=== PATIENT | female | born 1940 | race Caucasian/White ===

== ENCOUNTER 2021-07-13 15:11 | Emergency (ER) | payer MEDICARE, SELFPAY ==
[2021-07-13] VITALS (7 sets, daily range): BP systolic 167–199; BP diastolic 50–66; PULSE 51–66; RESP 12–18; TEMP 36.3; O2SAT 98–100
--- NOTE | ~2021-07-13 | CT_ITS ---
EXAMINATION: CT brain wo con INDICATION: Headache COMPARISON: MRI, 02/16/2018 TECHNIQUE: Standard unenhanced head CT. The dose-length product (DLP) was 605.33 mGy-cm. The mA was a djusted according to patient size. Iterative reconstruction technique was employed. FINDINGS: There is no acute intraparenchymal hemorrhage. There are widespread hyperdense foci through out the brain parenchyma. Distribution is similar to that seen on the comparison MRI. No evidence of acute infarction. There is mild periventricular and subcortical hypodensity probably related to small vessel ischemic disease. There is mild prominence of the sulci and ventricles related to cerebral at rophy. Intracranial calcified cerebral atherosclerosis is noted. There are no extra-axial collections . There is no mass effect or midline shift. The orbits and soft tissues are unremarkable. The visuali zed sinuses and mastoid air cells are well aerated. IMPRESSION: 1. Widespread hyperdense parenchymal foci, likely related to amyloidosis as described on the comparis on MRI. No definite acute findings identified. 2. Age related findings. Reviewed, dictated and finalized at location A. IMPRESSION: 1. Widespread hyperdense parenchymal foci, likely related to amyloidosis as wandy cribed on the comparison MRI. No definite acute findings identified. 2. Age related findings.
--- NOTE | ~2021-07-13 | CT_ITS ---
EXAMINATION: CTA chest PE protocol DATE: 07/13/2021 20:15 INDICATION: Heart palpitations TECHNIQUE: Computed tomography angiography (CTA) of the chest was performed with 100 mL Omnipaque-350 intravenous contrast timed to evaluate the pulmonary arteries. Coronal maximum intensity projection 3D-reconstructions were created by the technologist. The dose-length product (DLP) was 553.05 mGy-cm. Automated exposure control and iterative reconstruction technique were employed. COMPARISON: None. FINDINGS: The pulmonary arteries are well-opacified. No pulmonary embolism is identified. There is mi ld dependent atelectasis. No focal airspace opacity is identified. There is no pleural effusion or pn eumothorax. No pathologically enlarged thoracic lymph nodes are identified. The heart size is normal. There are bridging osteophytes at multiple levels in the spine, consistent with diffuse idiopathic s keletal hyperostosis (DISH). IMPRESSION: 1. No pulmonary embolism or acute cardiopulmonary abnormality. Reviewed, dictated and finalized at location A.
--- NOTE | 2021-07-13 16:15 | ECG_ITS ---
Measurements Intervals [place] Rate: 64 P: VT: 0 QRS: -41 QRSD: 108 T: 65 QT: 374 QTc: 388 Interpretive Statements SINUS RHYTHM LEFT AXIS DEVIATION BORDERLINE AV CONDUCTION DELAY INCOMPLETE LEFT BUNDLE BRANCH BLOCK LOW QRS VOLTAGE IN PRECORDIAL LEADS ANTEROSEPTAL INFARCT, AGE INDETERMINATE BASELINE ARTIFACT- I, II, III, AVR, AVL ABNORMAL ECG Electronically Signed On 07-13-2021 16:28:32 CDT by Jude Juarez D.O.
[2021-07-13 16:48] LABS: Basophils Percent Auto 0.2 % (0.2-1.2); Eosinophils Absolute Auto 0.2 K/mm3 (0-0.3); Eosinophils Percent Auto 3.8 % (0-4.4); Hematocrit 33.3 % (37.0-47.0); Hemoglobin 11.4 g/dL (12.0-15.0); Immature Granulocyte Absolute 0.02 K/mm3 (0.00-0.031); Immature Granulocyte Percent A 0.4 % (0-0.5); Lymphocytes Percent Auto 19.8 % (18.3-44.2); Mean Corpuscular HGB Conc 34.2 g/dl (32-36); Mean Corpuscular Hemoglobin 31.3 pg (26-34); Mean Corpuscular Volume 91.5 fl (80-100); Mean Platelet Volume 12.1 fl (7.4-10.4); Monocytes Absolute Auto 0.3 K/mm3 (0.1-0.6); Monocytes Percent Auto 6.7 % (2.6-8.5); Neutrophils Absolute Auto 3.5 K/mm3 (1.3-6.7); Neutrophils Percent Auto 69.1 % (45.5-73.1); Platelet Count Result 102 k/mm3 (150-375); Red Blood Count 3.64 M/mm3 (4.2-5.4); Red Cell Distribution Width 13.9 % (11.5-14.5)
[2021-07-13 16:55] LABS: Anion Gap 8 mmol/L (8-16); Blood Urea Nitrogen 23 mg/dL (7-17); Calcium 10.6 mg/dL (8.4-10.2); Carbon Dioxide 26 mmol/L (22-30); Chloride 104 mmol/L (98-107); Estimated CRCL calculation 53 ml/min; Estimated Glomerular Filt Rate > 60; Glucose 272 mg/dL (65-110); Potassium 4.2 mmol/L (3.4-5.0); Sodium 138 mmol/L (137-145)
[2021-07-13 17:04] LABS: D Dimer 1.91 ug/mL (<0.48)
--- NOTE | 2021-07-13 19:55 | ED.DIZZY ---
HPI - Dizziness General Chief Complaint: Dizziness Stated Complaint: dizzy Time Seen by Provider: 07/13/21 19:28 Source: patient and RN notes reviewed Mode of arrival: EMS Limitations: no limitations History of Present Illness HPI Narrative: This is 80 year old female with history of hypertension, hyperlipidemia and Diabetes mellitus who presents for evaluation dizziness. Patient reports around 1:45 pm she developed dizziness, anxiousness, palpitations and shortness of breath. She is unable to clearly explain her dizziness but she does deny spinning. These symptoms occurred together and her symptoms lasted for 45 minutes. She denies associated nausea, diaphoresis, chest pain, abdominal pain. She denies having any symptoms now. She reports having similar episode 3 weeks ago. She has not taken any of her medication today. Related Data Home Medications Medication Instructions Recorded Confirmed aspirin 81 mg tablet,delayed 81 mg PO DAILY 04/27/21 04/27/21 release atorvastatin 40 mg tablet 40 mg PO DAILY 04/27/21 04/27/21 ezetimibe 10 mg tablet 10 mg PO DAILY 04/27/21 04/27/21 losartan 25 mg tablet 25 mg PO DAILY 04/27/21 04/27/21 metformin 500 mg tablet 500 mg PO BID 04/27/21 04/27/21 multivitamin 1 tablet PO DAILY 04/27/21 04/27/21 omega-3 fatty acids 1,000 mg 1,000 mg PO DAILY 04/27/21 04/27/21 capsule diclofenac sodium PO 07/13/21 Allergies Allergy/AdvReac Type Severity Reaction Status Date / Time No Known Allergies Allergy Verified 07/13/21 19:56 Review of Systems Review of Systems: All systems reviewed & are unremarkable except as noted in HPI and below PMFSH Past Medical History Medical History (Updated 07/14/21 @ 00:00 by Markell Dafelice) Diabetes mellitus Hyperlipidemia Hypertension Surgical History Surgical History (Updated 07/13/21 @ 19:59 by Brenda Sherman MD) H/O: hysterectomy Family History Family History (Updated 04/27/21 @ 11:25 by Jessy Doan) Father Lung cancer Mother Depression Sibling Asthma Depression Thyroid disease Social History Social History (Updated 07/13/21 @ 20:00 by Brenda Sherman MD) Smoking status: Former smoker Exam Const: General: no acute distress and alert Orientation/consciousness: patient oriented x3 HENMT: Head: normocephalic and atraumatic Ears: TM's normal bilaterally Face and sinus: face symmetric Mouth: Yes Normal oral and palatal mucosa present, Yes lip normal, Yes oropharynx normal and Yes moist mucous membranes Eyes: Pupils: Equal, round and reactive pupils present EOM: EOMs intact bilaterally Chest: Chest palpation & inspection: normal inspection of the chest Resp: Effort & Inspection: normal respiratory effort and no retractions Auscultation: clear to auscultation bilaterally Cardio: Rate: regular rate Rhythm: regular rhythm Heart sounds: no murmurs GI: GI Palp: Yes Soft to palpation, No Tenderness to palpation present (GI) and No Guarding due to palpation present (GI) Auscultation: normal bowel sounds Skin: General skin exam: normal color Rashes: no rashes Neuro: General: patient oriented x3, moves all extremities, no meningeal signs, no focal motor deficits and CN's II-XI intact bilaterally Speech: normal speech Motor exam (neuro): 5/5 motor strength present throughout Coordination: [id number] test normal Psych: Mental Status: mental status grossly normal Affect: normal affect Course Reevaluation(s) Reevaluation #1: I Discussed with patient and daughter CT findings and UTI. PAtient was given dose of antibiotics. She is stable for discharge. She will need to follow up with PCP. 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
[2021-07-13 20:07] LABS: Prothrombin Time 12.9 Seconds (11.1-14.7)
[2021-07-13 20:08] LABS: Partial Thromboplastin Time 34.3 SECONDS (22.3-36.8)
[2021-07-13 20:18] LABS: Alanine Aminotransferase 17 U/L (4-35); Albumin Level 4.1 g/dL (3.5-5.1); Alkaline Phosphatase 64 U/L (38-126); Aspartate Amino Transferase 23 U/L (14-36); Bilirubin,Total 0.6 mg/dL (0.2-1.3)
[2021-07-13] MEDS: SODIUM CHLORIDE 0.9% IV 1,000 ML 999 ML IV CONT (20:22)
[2021-07-13 20:24] LABS: Troponin I < 0.012 ng/mL (0.000-0.034)
[2021-07-13] MEDS: LOSARTAN POTASSIUM 25 MG TABLET PO (21:14)
[2021-07-13] MEDS: metFORMIN HCL 500 MG TABLET PO (21:15)
[2021-07-13 21:27] LABS: Add Urine Microscopic? YES; Appearance Urine Cloudy (Clear); Bilirubin Urine Negative (Negative); Blood Urine Negative (Negative); Color Urine Yellow (Yellow); Glucose Urine UA 1+ mg/dL (Negative); Ketones Urine Negative (Negative); Leukocyte Esterase Ur 3+ LEU/UL (Negative); Mucus Urine Rare /lpf; Nitrate Urine Positive (Negative); Protein Urine Negative (Negative); RBC Urine 21-50 /hpf (0-2); Squamous Epithelial Cell Urine Moderate /hpf (Few); Urobilinogen Urine Negative mg/dL (<2.0); WBC Urine >75 /hpf
[2021-07-13 21:28] LABS: Specific Grav Ur 1.044 (1.001-1.035)
== END 2021-07-13 22:56 | disposition home or self-care (01) ==
PROVIDERS: Emergency Medicine; Emergency Provider General Practice; PCP Internal Medicine
DX: R00.2 Palpitations (principal); N39.0 Urinary tract infection, site not specified; E11.9 Type 2 diabetes mellitus without complications; E78.5 Hyperlipidemia, unspecified; I10 Essential (primary) hypertension; Z87.891 Personal history of nicotine dependence; Z79.82 Long term (current) use of aspirin; I44.7 Left bundle-branch block, unspecified; R94.31 Abnormal electrocardiogram [ECG] [EKG]; R06.02 Shortness of breath; Z79.84 Long term (current) use of oral hypoglycemic drugs
CPT/HCPCS: 36415; 70450; 71275; 80048; 80076; 81001; 84484; 85025; 85380; 85610; 85730; 87077; 87086; 87088; 87186; 93005; 96361; 96365; 99284; A9270; J0696; J7030; Q9967

== ENCOUNTER 2022-04-10 16:13 | Emergency (ER) | payer MEDICARE, SELFPAY ==
[2022-04-10 16:17] VITALS: BP 148/69; PULSE 76; RESP 18; TEMP 36.7; O2SAT 98
--- NOTE | 2022-04-10 16:40 | ED.GENADULT ---
HPI - General Adult General Chief complaint: Fall Stated complaint: fell twice today. Time Seen by Provider: 04/10/22 16:25 History of Present Illness HPI narrative: 81-year-old female presented to the emergency department for evaluation of 2 months of urinary frequency and not feeling well and then patient had a ground-level fall today. Patient states she went to go see a movie and when she stood up to use her walker she felt dizzy lightheaded and went down to the ground. Patient landed on her knees. Patient denies actual loss of consciousness. Patient denies any injury from the fall. Related Data Home Medications Medication Instructions Recorded Confirmed aspirin 81 mg tablet,delayed 81 mg PO DAILY 04/27/21 04/27/21 release (Adult Aspirin Regimen) atorvastatin 40 mg tablet 40 mg PO DAILY 04/27/21 04/27/21 ezetimibe 10 mg tablet 10 mg PO DAILY 04/27/21 04/27/21 losartan 25 mg tablet 25 mg PO DAILY 04/27/21 04/27/21 metformin 500 mg tablet 500 mg PO BID 04/27/21 04/27/21 multivitamin 1 tablet PO DAILY 04/27/21 04/27/21 omega-3 fatty acids 1,000 mg 1,000 mg PO DAILY 04/27/21 04/27/21 capsule (Fish Oil Concentrate) diclofenac sodium 75 mg PO 07/13/21 tablet,delayed release Allergies Allergy/AdvReac Type Severity Reaction Status Date / Time No Known Allergies Allergy Verified 07/13/21 19:56 Review of Systems Review of Systems: CONSTITUTIONAL: Denies fever, chills, or sweats. EYES: Denies visual changes, redness, or discharge. ENT: Denies rhinorrhea, congestion, sore throat, or otalgia. CARDIOVASCULAR: Denies chest pain, palpitations, or edema. RESPIRATORY: Denies cough or dyspnea. GASTROINTESTINAL: Denies abdominal pain, nausea, vomiting, or diarrhea. GENITOURINARY: See HPI SKIN: Denies rash or itching. MUSCULOSKELETAL: See HPI NEUROLOGIC: Denies headache, numbness, or weakness. [facility] Past Medical History Medical History (Updated 04/10/22 @ 17:42 by Duke Crowe MD) Diabetes mellitus Hyperlipidemia Hypertension Surgical History Surgical History (Updated 07/13/21 @ 19:59 by Brenda Sherman MD) H/O: hysterectomy Family History Family History (Updated 04/27/21 @ 11:25 by Jessy Doan) Father Lung cancer Mother Depression Sibling Asthma Depression Thyroid disease Social History Social History (Updated 07/13/21 @ 20:00 by Brenda Sherman MD) Smoking status: Former smoker Exam Narrative: APPEARANCE: Well appearing, no pain, no distress, well-nourished. HEAD: normocephalic, atraumatic. EYES: PERRLA/EOMI, conjunctivae clear. NOSE: Normal no drainage THROAT: Pharynx clear, no exudate. NECK: Supple. No adenopathy, no masses. RESPIRATORY: Airway patent, respirations nonlabored. Clear to auscultation bilaterally, no rales, rhonchi, wheezing. CARDIOVASCULAR: Regular rate and rhythm without murmurs rubs or gallops. ABDOMINAL: Soft, nontender, nondistended, normal bowel sounds MUSCULOSKELETAL: Moves all extremities. Strength/ROM intact, No edema, No calf tenderness. NEURO: Alert. Cranial nerves II through XII intact. Grossly intact SKIN: Warm, dry. Normal Color Course Course Emergency Course: Patient's urine was consistent with urinary tract infection. Patient was treated with a dose of IV Rocephin in the emergency department. Patient was discharged home on Keflex. All question concerns were addressed. Patient was comfortable with plan for discharge and close follow-up. Vital Signs Vital signs: Vital Signs Temperature 98.1 F 04/10/22 16:17 Pulse Rate 76 04/10/22 16:17 Respiratory Rate 18 04/10/22 16:17 Blood Pressure 148/69 H 04/10/22 16:17 Pulse Oximetry 98 04/10/22 16:17 Temperature 98.1 F 04/10/22 16:17 Pulse Rate 76 04/10/22 18:12 Respiratory Rate 16 04/10/22 18:12 Blood Pressure 134/82 04/10/22 18:12 Pulse Oximetry 99 04/10/22 18:12 Medical Decision Making Vital Signs Vital Signs: Vital Signs Temperatu
[2022-04-10 16:46] LABS: Appearance Urine Clear (Clear); Bilirubin Urine Negative (Negative); Color Urine Yellow (Yellow); Glucose Urine UA 3+ mg/dL (Negative); Ketones Urine 2+ mg/dL (Negative); Leukocyte Esterase Ur Trace LEU/UL (Negative); Nitrate Urine Positive (Negative); Protein Urine Negative (Negative); Urobilinogen Urine 0.2 mg/dL (<2.0)
[2022-04-10 16:48] LABS: Basophils Percent Auto 0.3 % (0.2-1.2); Eosinophils Absolute Auto 0.1 K/mm3 (0-0.3); Eosinophils Percent Auto 1.3 % (0-4.4); Hematocrit 39.4 % (37.0-47.0); Immature Granulocyte Absolute 0.02 K/mm3 (0.00-0.031); Immature Granulocyte Percent A 0.3 % (0-0.5); Immature Platelet Fraction Pct 8.6 % (0.9-11.2); Lymphocytes Percent Auto 19.8 % (18.3-44.2); Mean Corpuscular Hemoglobin 30.8 pg (26-34); Mean Corpuscular Volume 93.4 fl (80-100); Mean Platelet Volume 11.6 fl (7.4-10.4); Monocytes Absolute Auto 0.4 K/mm3 (0.1-0.6); Monocytes Percent Auto 5.7 % (2.6-8.5); Neutrophils Absolute Auto 5.1 K/mm3 (1.3-6.7); Neutrophils Percent Auto 72.6 % (45.5-73.1); Platelet Count Result 130 k/mm3 (150-375); Red Blood Count 4.22 M/mm3 (4.2-5.4); Red Cell Distribution Width 14.2 % (11.5-14.5); White Blood Count 7.1 K/mm3 (4.5-10.0)
[2022-04-10 16:52] LABS: Bacteria Urine Trace /hpf; Mucus Urine Rare /lpf; Squamous Epithelial Cell Urine Rare /hpf (Few); WBC Urine 21-30 /hpf
[2022-04-10 16:53] LABS: Add Urine Microscopic? YES; Blood Urine Trace-Intact (Negative)
[2022-04-10 16:55] LABS: Lactic Acid Reflex 1.5 mmol/L (0.7-2.0)
[2022-04-10 16:57] LABS: Alanine Aminotransferase 15 U/L (6-35); Albumin Level 4.4 g/dL (3.5-5.1); Alkaline Phosphatase 60 U/L (38-126); Anion Gap 9 mmol/L (8-16); Aspartate Amino Transferase 31 U/L (14-36); Bilirubin,Total 1.1 mg/dL (0.2-1.3); Blood Urea Nitrogen 21 mg/dL (7-17); Calcium 10.3 mg/dL (8.4-10.2); Carbon Dioxide 22 mmol/L (22-30); Chloride 106 mmol/L (98-107); Estimated CRCL calculation 52 ml/min; Estimated Glomerular Filt Rate > 60; Glucose 121 mg/dL (65-110); Sodium 137 mmol/L (137-145)
[2022-04-10 18:12] VITALS: BP 134/82; PULSE 76; RESP 16; O2SAT 99
== END 2022-04-10 18:15 | disposition home or self-care (01) ==
PROVIDERS: Emergency Provider Emergency Medicine; PCP Internal Medicine
DX: N39.0 Urinary tract infection, site not specified (principal); E11.9 Type 2 diabetes mellitus without complications; E78.5 Hyperlipidemia, unspecified; I10 Essential (primary) hypertension; Z87.891 Personal history of nicotine dependence; Z79.84 Long term (current) use of oral hypoglycemic drugs; Z79.82 Long term (current) use of aspirin
CPT/HCPCS: 36415; 80053; 81001; 83605; 85025; 85055; 87077; 87086; 87186; 96374; 99284; J0696

== ENCOUNTER 2024-07-12 20:01 | Emergency (ER) | payer MEDICARE, SELFPAY ==
--- NOTE | ~2024-07-12 | CT_ITS ---
EXAMINATION: CT brain wo con DATE: 07/12/2024 22:49 INDICATION: dizzy, hx amyloid? . TECHNIQUE: Computed tomography (CT) of the head was performed without intravenous contrast. The mA wa s adjusted according to patient size. Iterative reconstruction technique was employed. The dose-lengt h product was 605.33 mGy-cm. COMPARISON: 07/13/2021; MR brain 02/16/2018. FINDINGS: No acute intracranial hemorrhage or extra-axial fluid collection. No hydrocephalus, mass, or herniation. No acute ischemic infarct. Unremarkable dural venous sinus attenuation. No acute osseous abnormality. Minimal left mastoid fluid, the remaining aerated spaces are clear. Multiple hyperdensities scattered throughout the brain parenchyma, grossly similar in number and dist ribution given interval differences in positioning, the largest in the right centrum semiovale measur ing up to 1.7 cm. Moderate atrophy and mild chronic white matter change. Atherosclerotic intracranial calcification. Bilateral lens replacements. IMPRESSION: No acute intracranial process. Widespread hyperdense parenchymal foci, grossly similar in number and distribution, likely related to amyloidosis. Reviewed, dictated and finalized at location K. IMPRESSION: No acute intracranial process. Widespread hyperdense parenchymal foci, grossly similar in number and distribut ion, likely related to amyloidosis.
--- NOTE | ~2024-07-12 | XR_ITS ---
EXAM: XR pelvis 1-2V DATE: 07/12/2024 22:57 HISTORY: fall . COMPARISON: None available. 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 Multiple pelvic phleboliths. No frac ture or dislocation. Moderate degenerative changes in the right hip and pubic symphysis. Mild degener ative change in the left hip. IMPRESSION: No acute osseous finding in the pelvis. Reviewed, dictated and finalized at location K.
--- NOTE | ~2024-07-12 | XR_ITS ---
EXAMINATION: XR chest 2V Exam Date/Time: 07/12/2024 21:05 CDT HISTORY: dizziness/weakness/short of breath Comparison: CTPA 07/13/2021. RESULT: Lines, tubes, and devices: None. Lungs and pleura: Senescent changes, otherwise clear. Cardiomediastinal silhouette: Unremarkable. Other: No acute osseous or upper abdominal finding. IMPRESSION: No acute cardiopulmonary process. Reviewed, dictated and finalized at location K.
[2024-07-12 20:11] VITALS: BP 189/56; PULSE 64; RESP 16; TEMP 36.3; O2SAT 100
--- NOTE | 2024-07-12 20:15 | ECG_ITS ---
Test Date: 2024-07-12 20:54:42 Measurements Intervals [place] Rate: 68 P: 106 DC: 235 QRS: -50 QRSD: 114 T: 69 QT: 366 QTc: 392 Interpretive Statements SINUS RHYTHM WITH FIRST DEGREE AV BLOCK LEFT ANTERIOR FASCICULAR BLOCK ANTEROSEPTAL INFARCT, AGE INDETERMINATE NONSPECIFIC ST ELEVATION IN ANTEROLAT/INF LEADS BASELINE ARTIFACT- I, II, III, AVR, AVL, AVF ABNORMAL ECG No previous ECG available for comparison Electronically Signed On 07-13-2024 10:33:42 CDT by Jude Juarez D.O.
[2024-07-12 20:25] LABS: Glucose Point of Care 99 mg/dl (65-105)
[2024-07-12 20:53] LABS: Basophils Percent Auto 0.2 % (0.2-1.2); Eosinophils Absolute Auto 0.2 K/mm3 (0-0.3); Eosinophils Percent Auto 3.1 % (0-4.4); Hematocrit 39.2 % (37.0-47.0); Hemoglobin 12.8 g/dL (12.0-15.0); Immature Granulocyte Absolute 0.01 K/mm3 (0.00-0.031); Immature Granulocyte Percent A 0.2 % (0-0.5); Immature Platelet Fraction Pct 6.9 % (0.9-11.2); Lymphocytes Absolute Auto 0.89 K/mm3 (0.9-3.2); Lymphocytes Percent Auto 17.1 % (18.3-44.2); Mean Corpuscular HGB Conc 32.7 g/dl (32-36); Mean Corpuscular Hemoglobin 31.5 pg (26-34); Mean Corpuscular Volume 96.6 fl (80-100); Mean Platelet Volume 11.2 fl (7.4-10.4); Monocytes Absolute Auto 0.4 K/mm3 (0.1-0.6); Monocytes Percent Auto 7.1 % (2.6-8.5); Neutrophils Absolute Auto 3.8 K/mm3 (1.3-6.7); Neutrophils Percent Auto 72.3 % (45.5-73.1); Platelet Count Result 105 k/mm3 (150-375); Red Blood Count 4.06 M/mm3 (4.2-5.4); Red Cell Distribution Width 14.7 % (11.5-14.5); White Blood Count 5.2 K/mm3 (4.5-10.0)
[2024-07-12 21:03] LABS: Alanine Aminotransferase 21 U/L (6-35); Albumin Level 4.4 g/dL (3.5-5.1); Alkaline Phosphatase 58 U/L (38-126); Anion Gap 10 mmol/L (4-12); Aspartate Amino Transferase 30 U/L (14-36); Bilirubin,Total 0.7 mg/dL (0.2-1.3); Blood Urea Nitrogen 31 mg/dL (7-17); Calcium 10.8 mg/dL (8.4-10.2); Carbon Dioxide 23 mmol/L (22-30); Chloride 104 mmol/L (98-107); Estimated Glomerular Filt Rate > 60; Glucose 117 mg/dL (65-110); Sodium 137 mmol/L (137-145)
--- NOTE | 2024-07-12 22:46 | ED.SYNCOPE ---
HPI - Syncope General Chief Complaint: Dizziness Stated Complaint: Dizzy Time Seen by Provider: 07/12/24 22:35 History of Present Illness HPI narrative: 83-year-old female with a past medical history significant for diabetes presenting to the emergency department today with a chief complaint of ?dizzy sensation ?and difficulty getting around with her walker. Patient states that this has happened to her before where she intermittently gets dizziness sensations but no room spinning sensations and usually attributed to rapid changes from a seated to standing position. She did have a fall earlier this week onto her right hip but was able to get up relatively unassisted. She does live alone in get around with a walker and wheelchair. Presently she states she has no symptoms while examining her she has no headache, vision changes, nausea, vomiting, abdominal pain, back pain. She states she feels completely asymptomatic at the moment and that these symptoms are intermittent but do not occur at rest. Denies any recent illnesses or hospitalizations. No chest pain, shortness a breath, headache, abdominal pain, back pain. Related Data Home Medications Medication Instructions Recorded Confirmed aspirin 81 mg tablet,delayed 81 mg PO DAILY 04/27/21 04/27/21 release (Adult Aspirin Regimen) atorvastatin 40 mg tablet 40 mg PO DAILY 04/27/21 04/27/21 ezetimibe 10 mg tablet 10 mg PO DAILY 04/27/21 04/27/21 losartan 25 mg tablet 25 mg PO DAILY 04/27/21 04/27/21 metformin 500 mg tablet 500 mg PO BID 04/27/21 04/27/21 multivitamin 1 tablet PO DAILY 04/27/21 04/27/21 omega-3 fatty acids 1,000 mg 1,000 mg PO DAILY 04/27/21 04/27/21 capsule (Fish Oil Concentrate) diclofenac sodium 75 mg PO 07/13/21 tablet,delayed release Allergies Allergy/AdvReac Type Severity Reaction Status Date / Time No Known Allergies Allergy Verified 07/13/21 19:56 Review of Systems Review of Systems: As reviewed above in HPI [facility] Past Medical History Medical History Diabetes mellitus Hyperlipidemia Hypertension Surgical History Surgical History H/O: hysterectomy Family History Family History Father Lung cancer Mother Depression Sibling Asthma Depression Thyroid disease Social History Social History Smoking status: Former smoker Exam Narrative: GENERAL: [Well-appearing, well-nourished, and in no acute distress.] HEAD: [Normocephalic, atraumatic.] EYES: [PERRLA and EOMI.] ENT: Nares clear, no rhinorrhea or epistaxis. Mucous membranes moist. NECK: Supple. CHEST: [Clear to auscultation. No respiratory distress.] HEART: [Regular rate and rhythm]. No murmur heard. [Normal peripheral pulses.] ABDOMEN: [Soft, nondistended], [nontender], [No rigidity or guarding] EXTREMITIES: Normal range of motion. [No edema.] SKIN: Warm, dry, no rash. NEURO: [No focal deficits]. Alert and oriented [x3.] Normal strength and sensation throughout, cranial nerves 2-12 are intact, negative Stroke Scale, NIHHS 0 PSYCH: [Normal mood and affect.] Course Vital Signs Vital signs: Vital Signs Temperature 36.3 C L 07/12/24 20:11 Pulse Rate 64 07/12/24 20:11 Respiratory Rate 16 07/12/24 20:11 Blood Pressure 189/56 H 07/12/24 20:11 Pulse Oximetry 100 07/12/24 20:11 Oxygen Delivery Room Air 07/12/24 20:11 Temperature 36.6 C 07/12/24 23:46 Pulse Rate 67 07/13/24 00:06 Respiratory Rate 18 07/12/24 23:46 Blood Pressure 213/70 H 07/13/24 00:06 Pulse Oximetry 97 07/12/24 23:46 Oxygen Delivery Room Air 07/12/24 20:11 MDM - Syncope MDM Narrative Medical decision making narrative: 83-year-old female presenting for ?dizziness ?she describes as a sensation of weakn
--- NOTE | 2024-07-12 22:53 | PC.NURSE ---
Pt MINA for imaging. Will administer fluids when pt returns.
[2024-07-12] MEDS: LACTATED RINGERS 1,000 ML 999 ML IV CONT (23:17)
[2024-07-12 23:37] LABS: Add Urine Microscopic? YES; Appearance Urine Cloudy (Clear); Bacteria Urine 4+ /hpf; Bilirubin Urine Negative (Negative); Blood Urine Non-Hemolyzed Trace (Negative); Color Urine Yellow (Yellow); Glucose Urine UA 3+ mg/dL (Negative); Ketones Urine Negative (Negative); Leukocyte Esterase Ur 3+ LEU/UL (Negative); Nitrate Urine Negative (Negative); Non Pathogenic Casts 0-2; Protein Urine Negative (Negative); RBC Urine 0-2 /hpf (0-2); Specific Grav Ur 1.015 (1.001-1.035); Squamous Epithelial Cell Urine None Seen /hpf (Few); WBC Urine >100 /hpf (0-3)
[2024-07-12 23:46] VITALS: BP 176/59; PULSE 54; RESP 18; TEMP 36.6; O2SAT 97
[2024-07-13 00:06] VITALS: BP 160/57; BP 172/54; BP 213/70; PULSE 55; PULSE 58; PULSE 67
[2024-07-13] MEDS: SULFAMETHOXAZOLE/TRIMETHOPRIM 800/160 MG DS TABLET 1 TAB PO (00:17)
== END 2024-07-13 00:25 | disposition home or self-care (01) ==
PROVIDERS: Emergency Provider Student in an Organized Health Care Education/Training Program; PCP Internal Medicine
DX: N39.0 Urinary tract infection, site not specified (principal); I10 Essential (primary) hypertension; E78.5 Hyperlipidemia, unspecified; E11.9 Type 2 diabetes mellitus without complications; Z90.710 Acquired absence of both cervix and uterus; Z87.891 Personal history of nicotine dependence
CPT/HCPCS: 36415; 70450; 71046; 72170; 80053; 81001; 82948; 85025; 85055; 87077; 87086; 87088; 87186; 93005; 96360; 99284; A9270; J7120

== ENCOUNTER 2025-06-27 23:29 | Inpatient (IN) | payer MEDICARE, SELFPAY ==
--- OUTSIDE RECORDS SUMMARY | 2025-05-10 03:46 | XMS_ITS | Continuity of Care Document ---
Author Organization [facility] Address [address] [place] [phone] Phone Care Team Providers Care Scrub Tech Name Role Phone Tamica Winston MD Unavailable Unavailabl e Medications Medication Instructions Dosage Effective Dates (start - stop) Status Comments losartan 25 mg tablet TAKE 2 TABLETS BY MOUTH ONCE DAILY - Active ciprofloxacin 500 mg tablet - Active magnesium oxide 400 mg (241.3 mg magnesium) tablet TAKE 1 TABLET BY MOUTH ONCE DAILY - Active alendronate 70 mg tablet - Active metformin 500 mg tablet - Ac tive nitrofurantoin monohydrate/macrocrysta ls 100 mg capsule TAKE 1 CAPSULE BY MOUTH EVERY 12 HOURS FOR 5 DAYS - Active ezetimibe 10 mg tablet TAKE 1 TABLET BY MOUTH ONCE DAILY - Active atorvastatin 40 mg tablet TAKE 1 TABLET BY MOUTH ONCE DAILY - Active alprazolam 0.25 mg tablet TAKE 1 TABLET BY MOUTH AT BEDTIME NEEDED FOR SLEEP - Active SSD 1 % topical cream APPLY A 1/16 INCH THICK LAYER TO ENTIRE WOUND AREA ON LEFT LEG TWO TIMES DAILY - Active doxycycline hyclate 100 mg capsule - Active glimepiride 1 mg tablet - Ac tive sulfamethoxazole 800 mg-trimethoprim 160 mg tablet TAKE 1 TABLET BY MOUTH EVERY 12 HOURS - Active losartan 25 mg tablet TAKE 2 TABLETS BY MOUTH ONCE DAILY - No Longer Active Advance Directives Directive Yes / No Effective Date File Name No Information Encounters Encounter Description Practice Location Reason(s) For Visit Diagnoses Date Provider Providers Copied on Encounter [facility], [address], [place], [id number], tel:[phone] [facility] Krish No Information Tish Davey. [address] [facility], [place], [place], [id number], [place]. tel:[phone] Family History Family Member Type Diagnosis Age At Onset No Information Payers Payer name Insurance type Covered constitution party ID Authoriza tion(s) No Information Social History Type Description Quantity Date Captured Comments Sex Female Smoking Status No Information Chief Complaint And Reason For Visit No Information Reason For Referral Reason For Referral No Information Plan Of Treatment Date Type Action Status Appointment Jorge Case History Of Present Illness Encounter Date Complaint History Of Prese nt Illness No Information Functional Status Date Functional Assessmen t No Information Instructions Date Instruction Additional Infor mation No Information Assessments Type Assessment Date No Information Patient Care Teams Name Effective Dates (start - stop) Status Members No Information
--- NOTE | ~2025-06-27 | XR_ITS ---
EXAMINATION: XR chest 1V DATE: 06/28/2025 00:22 INDICATION: Fall TECHNIQUE: frontal view of the chest was obtained. COMPARISON: Chest radiograph dated 07/12/2024 FINDINGS: Mild linear discoid atelectasis/scarring at the left costophrenic angle. No other airspace opacities, pulmonary edema, pleural effusion or pneumothorax. The cardiomediastinal silhouette is normal. Visualized bones and soft tissues are unremarkable. IMPRESSION: 1. Mild lingular atelectasis/scarring at the costophrenic angle. No other acute cardiopulmonary disease. Reviewed, dictated and finalized at location A.
--- NOTE | ~2025-06-27 | CT_ITS ---
EXAMINATION: CT abdomen pelvis w con DATE: 06/28/2025 13:49 INDICATION: Acute thrombocytopenia. Rule out hepatosplenomegaly. TECHNIQUE: Computed tomography (CT) of the abdomen and pelvis was performed with intravenous contrast. The dose-length product was 488.81 mGy-cm. Automated exposure control and iterative reconstruction technique were employed. COMPARISON: None. FINDINGS: There is dependent atelectasis. Heart size normal. Mild atherosclerosis of the aorta without aneurysm. No lymphadenopathy. There are hypovascular lesions of the liver with peripheral nodular enhancement, largest measuring 2.8 cm in the right hepatic lobe, most likely benign hemangiomas. The spleen, adrenal glands and left kidney are unremarkable. There are small right renal cysts. There is a cystic mass of the pancreatic neck measuring 2.2 x 1.6 cm. There is a smaller cystic mass of the pancreatic tail. Gallbladder contains stones with gallbladder wall enhancement. No significant pericholecystic fluid or biliary dilatation. There is a retroperitoneal 2.6 cm cystic lesion of uncertain significance in the left mid abdomen. The spleen, adrenal glands are unremarkable. Nonobstructive bowel gas pattern. Colonic diverticulosis without evidence for diverticulitis. No free air or free fluid. There is an acute left femoral intertrochanteric fracture with varus angulation. There are severe lumbar spondylosis. IMPRESSION: 1. Cystic masses of the pancreas, largest measuring 2.2 cm. The differential diagnosis includes pseudocyst, intraductal papillary mucinous neoplasm (IPMN), mucinous cystic neoplasm (MCN), and the less common serous cystadenoma and neuroendocrine tumor. 2: Cholelithiasis with mild gallbladder wall enhancement. No biliary dilatation or cholecystic fluid. 3: Hypovascular lesions of the liver, most likely benign hemangiomas, largest measuring 2.8 cm. 4: Acute left femoral intertrochanteric fracture with varus angulation. Reviewed, dictated and finalized at location O. IMPRESSION: 1. Cystic masses of the pancreas, largest measuring 2.2 cm. The differential di agnosis includes pseudocyst, intraductal papillary mucinous neoplasm (IPMN), mu cinous cystic neoplasm (MCN), and the less common serous cystadenoma and neuroe ndocrine tumor. 2: Cholelithiasis with mild gallbladder wall enhancement. No biliary dilatation or cholecystic fluid. 3: Hypovascular lesions of the liver, most likely benign hemangiomas, largest m easuring 2.8 cm. 4: Acute left femoral intertrochanteric fracture with varus angulation.
--- NOTE | ~2025-06-27 | MR_ITS ---
EXAMINATION: MR brain/brain stem wo/w con DATE: 07/03/2025 09:33 INDICATION: Slurred speech. TECHNIQUE: Magnetic resonance imaging (MRI) of the brain and brainstem was performed without and with 14 mL MultiHance intravenous contrast. COMPARISON: Brain MRI 02/16/2018, head CT 07/01/2025 FINDINGS: There are innumerable scattered foci of susceptibility artifact throughout the brain. There are scattered areas of nonspecific increased T2- weighted signal intensity in the cerebral white matter, which is within normal limits for the patient's age. There is no acute ischemic infarct. There is a 6 mm enhancing mass in left parietal lobe. There is a 4 mm enhancing mass in left frontal lobe. The ventricles are normal in size. The paranasal sinuses are clear. There are likely changes of ocular lens replacement surgeries. There are small bilateral mastoid effusions. IMPRESSION: 1. 6 mm and 4 mm enhancing masses in the brain, which may be metastatic disease or subacute infarcts. 2. Innumerable scattered foci of susceptibility artifact throughout the brain, consistent with foci of old hemorrhage. The number of foci is worsened from 02/16/2018, but this exam uses a sequence that is more sensitive than the sequence on the prior exam. Reviewed, dictated and finalized at location E. IMPRESSION: 1. 6 mm and 4 mm enhancing masses in the brain, which may be metastatic disease or subacute infarcts. 2. Innumerable scattered foci of susceptibility artifact throughout the brain, consistent with foci of old hemorrhage. The number of foci is worsened from 02/16, but this exam uses a sequence that is more sensitive than the sequence o n the prior exam.
--- NOTE | ~2025-06-27 | XR_ITS ---
EXAMINATION: XR surgery orthopedic DATE: 06/29/2025 08:54 INDICATION: Left hip intertrochanteric nailing TECHNIQUE: 4 fluoroscopic images of the left hip were obtained during procedure performed by Dr. Betancourt. Radiologist was not present for the imaging or procedure. The amount of fluoroscopy time used during this procedure was 1.8 minutes. Total DAP was 4.77 mGym^2. COMPARISON: 06/27/2025 FINDINGS: Interval reduction to near-anatomic alignment at the intertrochanteric fracture of the proximal left femur. Subsequent internal fixation with a short antegrade intramedullary lori with femoral neck dynamic compression screw and distal interlocking screw. No new fractures identified. Left hip joint space appears relatively preserved. IMPRESSION: 1. Fluoroscopy utilized during internal fixation of an intertrochanteric fracture the proximal femur which is now in near-anatomic alignment. Reviewed, dictated and finalized at location A. IMPRESSION: 1. Fluoroscopy utilized during internal fixation of an intertrochanteric fractu re the proximal femur which is now in near-anatomic alignment.
--- NOTE | ~2025-06-27 | XR_ITS ---
EXAMINATION: XR hip LT 2V w AP pelvis DATE: 06/28/2025 00:22 INDICATION: Left hip pain post fall TECHNIQUE: Anteroposterior view of the pelvis and anteroposterior and cross- table lateral views of the left hip were obtained. COMPARISON: None. FINDINGS: Intertrochanteric fracture the proximal left femur with 15 degrees varus angulation. No other fractures identified. Mild lower lumbar levocurvature with severe spondylosis. 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 Mild to moderate osteoarthritis at the left sacroiliac and right hip joints. Multiple phleboliths in the pelvis. Couple small heterotopic ossicles at the lateral proximal left thigh. IMPRESSION: 1. 15 degrees varus attenuation: Intertrochanteric fracture the proximal left femur. Reviewed, dictated and finalized at location A. IMPRESSION: 1. 15 degrees varus attenuation: Intertrochanteric fracture the proximal left f emur.
--- NOTE | ~2025-06-27 | CT_ITS ---
EXAM: CTA brain carotid - 07/01/2025 22:14 CDT History: 84 years old Female with stroke TECHNIQUE: CT scan of the head without contrast. Subsequently CTA of the head and neck with intravenous contrast was performed. 3-D reconstructed images of cerebral artery circulation were generated on a [employer] workstation. Automatic exposure control was used for this study. CONTRAST: 100 cc of Omnipaque 350 was used for this study COMPARISON: None available. FINDINGS: Normal branching pattern of the thoracic aorta. Great vessels of the neck are patent. RIGHT ANTERIOR CIRCULATION: Innominate and right common carotid artery is normal in caliber. No significant stenosis at the carotid bifurcation by NASCET criteria. Cervical segment of the internal carotid artery is normal in caliber. Cavernous and supraclinoid segments of the internal carotid artery patent. M1 segment and middle cerebral artery bifurcation are unremarkable. A1 segment, anterior communicating artery complex and A2 segment are within normal limits. LEFT ANTERIOR CIRCULATION: Left common carotid artery is normal in caliber. No significant stenosis at the carotid bifurcation by NASCET criteria. Cervical segment of the internal carotid artery is normal in caliber. Cavernous and supraclinoid segments of the internal carotid artery patent. M1 segment and middle cerebral artery bifurcation are unremarkable. A1 segment, anterior communicating artery complex and A2 segment are within normal limits. POSTERIOR CIRCULATION: Vertebral arteries are codominant and patent throughout the neck. Intradural vertebral arteries are normal in caliber and terminate as the basilar artery. Basilar artery is normal in caliber. P1 and P2 segments of the posterior cerebral arteries are normal in caliber. OTHER: Multilevel degenerative changes of the visualized cervical spine. Visualized lungs are clear. IMPRESSION: Unremarkable CTA of the head and neck. No evidence of cerebral artery aneurysm, stenosis or mass. *REFERENCES: NASCET CRITERIA: The degree of internal carotid artery (ICA) stenosis is based on NASCET criteria. Normal is no stenosis. Mild is less than 50% stenosis. Moderate is 50-69% stenosis. Severe is 70-99% stenosis. Total occlusion is no detectable patent lumen. Reviewed, dictated and finalized at location N. IMPRESSION: Unremarkable CTA of the head and neck. No evidence of cerebral artery aneurysm , stenosis or mass. *REFERENCES: NASCET CRITERIA: The degree of internal carotid artery (ICA) stenosis is based on NASCET criteria. Normal is no stenosis. Mild is less than 50% stenosis. Mode rate is 50-69% stenosis. Severe is 70-99% stenosis. Total occlusion is no detec table patent lumen.
--- NOTE | ~2025-06-27 | CT_ITS ---
CT HEAD NON-CONTRAST CT C-SPINE Clinical History: fall Comparison: CT brain 07/12/2024 Technique: Unenhanced axial images skull base to vertex. Coronal, sagittal reformats. Axial images thoracic inlet to skull base. Sagittal and coronal reformats. CT images acquired with automatic exposure control for dose reduction DLP: 605 mGy-cm Findings: Head: No acute or vertebral hemorrhage. Scattered bilateral hyperdense lesions as before, not significantly changed. Sulci, ventricles: Unremarkable. No evidence acute territorial infarct. No mass effect, midline shift, intra-/extra-axial fluid collection. Bony calvarium intact. Visualized paranasal sinuses: Clear. Mastoid air cells: Clear. C-spine: No acute fracture. Grade 1 retrolisthesis C5 on C6. Vertebral bodies normal height and alignment. T2 hemangioma. Moderate degenerative changes. Prevertebral soft tissues within normal limits. Visualized lung apices: Emphysema. Visualized thyroid: Unremarkable. No enlarged cervical nodes. IMPRESSION: HEAD: 1. No acute intracranial findings. 2. Scattered bilateral hyperdense lesions as before, not significantly changed. C-SPINE: 1. No acute fracture. Reviewed, dictated and finalized at location R. IMPRESSION: HEAD: 1. No acute intracranial findings. 2. Scattered bilateral hyperdense lesions as before, not significantly changed . C-SPINE: 1. No acute fracture.
--- NOTE | ~2025-06-27 | CT_ITS ---
EXAM: CT brain wo con - 07/01/2025 21:17 CDT History: 84 years old Female with stroke COMPARISON: 07/12/2024 PROCEDURE: CT of the head without contrast. Axial, sagittal and coronal reformatted planes were evaluated. Automatic exposure control was used for this study. FINDINGS: BRAIN PARENCHYMA: Multiple hyperdensities scattered throughout the brain parenchyma, grossly similar in number and distribution, the largest of which is in the centrum semiovale and measures up to 1.7 cm. Mild chronic volume loss. Scattered hypodensities in subcortical and periventricular white matter, likely representing chronic microvascular ischemic changes in this age group. Atherosclerotic calcification of the intracranial vessels is noted. VENTRICLES/ EXTRA-AXIAL SPACES: No hydrocephalus or extra-axial fluid collection. EXTRACRANIAL STRUCTURES: No calvarial fracture. IMPRESSION: No significant interval change. Bilateral widespread hyperdense parenchymal fossae, grossly similar in number and distribution, likely related the patient's known diagnosis of amyloidosis. Reviewed, dictated and finalized at location N. IMPRESSION: No significant interval change. Bilateral widespread hyperdense parenchymal fos saul, grossly similar in number and distribution, likely related the patient's k nown diagnosis of amyloidosis.
[2025-06-27 23:30] VITALS: BP 215/83; PULSE 74; PULSE 75; RESP 17; TEMP 36.4; O2SAT 100
[2025-06-27 23:45] VITALS: BP 208/76; PULSE 70; RESP 16; O2SAT 100
[2025-06-28] VITALS (11 sets, daily range): BP systolic 140–196; BP diastolic 48–88; PULSE 68–86; RESP 15–20; TEMP 36.1–36.8; O2SAT 97–100; BMI 25.7
--- NOTE | 2025-06-28 00:49 | ECG_ITS ---
Test Date: 2025-06-28 03:17:44 Measurements Intervals [place] Rate: 77 P: 71 IA: 257 QRS: -59 QRSD: 115 T: 91 QT: 357 QTc: 405 Interpretive Statements SINUS RHYTHM WITH FIRST DEGREE AV BLOCK LEFT AXIS DEVIATION [QRS AXIS < -30] ANTEROSEPTAL MYOCARDIAL INFARCTION , OF INDETERMINATE AGE [40+ ms Q WAVE IN V1-V4] NONSPECIFIC T-WAVE ABNORMALITIES Compared to ECG 07/12/2024 20:54:42 NO SIGNIFICANT CHANGES Electronically Signed On 06-28-2025 15:34:39 CDT by Neil Blackwood M.D.
--- NOTE | 2025-06-28 00:50 | ED.LOWEXIN ---
HPI - Extremity Injury (Lower) General Chief Complaint: Extremity Injury, Lower <Kimmie Haley PA-C - Last Filed: 06/28/25 03:01> Stated Complaint: GLF-HIP INJURY <REBECCA Pimentel Last Filed: 06/28/25 03:01> Time Seen by Provider: 06/27/25 23:48 <Kimmie Haley PA-C - Last Filed: 06/28/25 03:01> Source: patient <REBECCA Pimentel Last Filed: 06/28/25 03:01> Mode of arrival: EMS <REBECCA Pimentel Last Filed: 06/28/25 03:01> Limitations: no limitations <REBECCA Pimentel Last Filed: 06/28/25 03:01> History of Present Illness HPI Narrative: This is an 84-year-old female that presents to the emergency department for left hip pain after a ground level fall. Reports she was using her walker, felt like she tripped over something. Fell in her left hip. She did hit her head. She did not lose consciousness. She has not been able to ambulate since. <Kimmie Haley PA-C - Last Filed: 06/28/25 03:01> Related Data Home Medications: Home Medications ?Medication ?Instructions ?Recorded ?Confirmed ?Last Taken ?Type atorvastatin 40 mg tablet 40 mg PO DAILY 04/27/21 06/28/25 06/27/25 History ezetimibe 10 mg tablet 10 mg PO DAILY 04/27/21 06/28/25 06/27/25 08:01 History 10 mg losartan 25 mg tablet 25 mg PO DAILY 04/27/21 06/28/25 06/27/25 08:00 History 50 mg metformin 500 mg tablet 500 mg PO BID 04/27/21 06/28/25 06/27/25 08:00 History 500 mg multivitamin 1 tablet PO DAILY 04/27/21 06/28/25 06/27/25 07:04 History 1 tablet omega-3 fatty acids 1,000 mg 1,200 mg PO DAILY 04/27/21 06/28/25 06/27/25 09:05 History capsule (Fish Oil Concentrate) 1,200 mg diclofenac sodium 75 mg PO 07/13/21 06/27/25 History tablet,delayed release <Kimmie Haley PA-C - Last Filed: 06/28/25 03:01> Allergies/Adverse Reactions: Allergies Allergy/AdvReac Type Severity Reaction Status Date / Time No Known Allergies Allergy Verified 06/28/25 03:59 <Kimmie Haley PA-C - Last Filed: 06/28/25 03:01> Review of Systems Review of Systems: All systems reviewed & are unremarkable except as noted in HPI and below <Kimmie Haley PA-C - Last Filed: 06/28/25 03:01> PMFSH Past Medical History Medical History: Medical History Diabetes mellitus Hyperlipidemia Hypertension <REBECCA Pimentel Last Filed: 06/28/25 03:01> Surgical History Surgical History: Surgical History H/O: hysterectomy <REBECCA Pimentel Last Filed: 06/28/25 03:01> Family History Family History: Family History Father Lung cancer Mother Depression Sibling Asthma Depression Thyroid disease <REBECCA Pimentel Last Filed: 06/28/25 03:01> Social History Social History: Social History Smoking status: Former smoker <REBECCA Pimentel Last Filed: 06/28/25 03:01> Exam Narrative: GENERAL: Elderly, well-nourished, and in no acute distress. HEAD: Normocephalic, atraumatic. EYES: PERRLA and EOMI. ENT: Nares clear, no rhinorrhea or epistaxis. Mucous membranes moist. Oropharynx without tonsillar hypertrophy exudate or other lesions. Bilateral TMs pearly marin non-bulging NECK: Supple. No adenopathy or masses. CHEST: Clear to auscultation. No respiratory distress. No wheezes rales or rhonchi HEART: Regular rate and rhythm. No murmur heard. Normal peripheral pulses. EXTREMITIES: Normal range of motion, except decreased active ROM in the left hip. No edema. DP pulses obtained via doppler SKIN: Warm, dry, no rash. NEURO: No focal deficits. Alert and oriented x3. PSYCH: Normal mood and affect <Kimmie Haley PA-C - Last Filed: 06/28/25 03:01> Course Course Emergency Course: Patient and family updated on workup and need for admission <Kimmie Haley PA-C - Last Filed: 06/28/25 03:01> Consultations Consultation #1: Spoke with Dr. Betancourt who will consult <REBECCA Pimentel Last Filed: 06/28/25 03:01> Date: 06/28/25 <REBECCA Pimentel Last Filed: 06/28/25 03:01> Consultation #2: Spoke with hospitalist about patient and workup who accepts admission <Kimmie Haley PA-C - Last Filed: 06/28/25 03:01> Date: 06/28/25 <REBECCA Pimentel Last Filed: 06/28/25 03:01> Vital Signs Vital signs: Vital Signs Temperature 97.5 F L 06/27/25 23:30 Pulse Rate 74 06/27/25 23:30 Respiratory Rate 17 06/27/25 23:30 Blood Pressure 215/83 H 06/27/25 23:30 Pulse Oximetry 100 06/27/25 23:30 Oxygen Delivery Room Air 06/27/25 23:30 Temperature 97.5 F L 06/27/25 23:30 Pulse Rate 79 06/28/25 03:00 Respiratory Rate 18 06/28/25 03:00 Blood Pressure 186/71 H 06/28/25 03:45 Pulse Oximetry 97 06/28/25 03:00 Oxygen Delivery Room Air 06/27/25 23:30 <REBECCA Pimentel Last Filed: 06/28/25 03:01> Vital Signs Temperature 97.5 F L 06/27/25 23:30 Pulse Rate 74 06/27/25 23:30 Respiratory Rate 17 06/27/25 23:30 Blood Pressure 215/83 H 06/27/25 23:30 Pulse Oximetry 100 06/27/25 23:30 Oxygen Delivery Room Air 06/27/25 23:30 Temperature 97.5 F L 06/27/25 23:30 Pulse Rate 79 06/28/25 03:00 Respiratory Rate 18 06/28/25 03:00 Blood Pressure 186/71 H 06/28/25 03:45 Pulse Oximetry 97 06/28/25 03:00 Oxygen Delivery Room Air 06/27/25 23:30 <Jacobo Rapp MD - Last Filed: 06/28/25 05:08> Procedures Nerve Block Nerve Block 1: Nerve block date: 06/28/25 <Jacobo Rapp MD - Last Filed: 06/28/25 05:08> Local Anesthetic: bupivacaine 0.25% <Jacobo Rapp MD - Last Filed: 06/28/25 05:08> Amount of anesthesia used (mL): 30 <Jacobo Rapp MD - Last Filed: 06/28/25 05:08> Side: left <Jacobo Rapp MD - Last Filed: 06/28/25 05:08> Nerve Blocks: other (Ilopsoas plan block) <Jacobo Rapp MD - Last Filed: 06/28/25 05:08> Procedure Successful: Yes <Jacobo Rapp MD - Last Filed: 06/28/25 05:08> Patient Tolerated Procedure: well <Jacobo Rapp MD - Last Filed: 06/28/25 05:08> Complications: none <Jacobo Rapp MD - Last Filed: 06/28/25 05:08> MDM - Extremity Injury (Lower) MDM Narrative Medical decision making narrative: Patient presents to the emergency department after a ground level fall with left hip pain. Also reporting head injury. She is neurologically intact. CT brain and cervical spine without acute findings. Chest x-ray without acute cardiopulmonary abnormality. Left hip x-ray showing intertrochanteric fracture. Spoke with Dr. Betancourt who will consult. Spoke with hospitalist about patient and workup who accepts admission <Kimmie Haley PA-C - Last Filed: 06/28/25 03:01> Differential Diagnosis Differential diagnosis: Likely other (Hip fracture, concussion, subdural hematoma, cervical spine fracture) <Kimmie Haley PA-C - Last Filed: 06/28/25 03:01> Lab Data Attestation: I reviewed the patient's lab results. <Kimmie Haley PA-C - Last Filed: 06/28/25 03:01> Result diagrams: 06/27/25 23:51 06/27/25 23:50 <Kimmie Haley PA-C - Last Filed: 06/28/25 03:01> Labs: Lab Results 06/27/25 06/27/25 Range/Units 23:50 23:51 WBC 4.2 L (4.5-10.0) K/mm3 RBC 3.93 L (4.2-5.4) M/mm3 Hgb 12.3 (12.0-15.0) g/dL Hct 37.3 (37.0-47.0) % MCV 94.9 (80-100) fl MCH 31.3 (26-34) pg MCHC 33.0 (32-36) g/dl RDW 13.6 (11.5-14.5) % Plt Count 87 L (150-375) k/mm3 MPV 11.9 H (7.4-10.4) fl Immature Gran % (Auto) 1.0 H (0-0.5) % Neut % (Auto) 63.6 (45.5-73.1) % Lymph % (Auto) 24.2 (18.3-44.2) % Dubois % (Auto) 7.4 (2.6-8.5) % Eos % (Auto) 3.6 (0-4.4) % Baso % (Auto) 0.2 (0.2-1.2) % Lymph # (Auto) 1.02 (0.9-3.2) K/mm3 Dubois # (Auto) 0.3 (0.1-0.6) K/mm3 Eos # (Auto) 0.2 (0-0.3) K/mm3 Baso # (Auto) 0.0 (0.0-0.1) K/mm3 Abs Immat Gran (auto) 0.04 H (0.00-0.031) K/mm3 Absolute Neuts (auto) 2.7 (1.3-6.7) K/mm3 Absolute Nucleated RBC 0.000 (0.0-0.012) K/mm3 Band Neutrophils % Not Reportable Nucleated RBC % 0.0 (0.0-0.2) % Platelet Estimate Decreased (Adequate) % Immature Plt Fraction 6.2 (0.9-11.2) % Acanthocytes (Spur) Occasional Schistocytes None seen Sodium 136 L (137-145) mmol/L Potassium 4.1 (3.4-5.0) mmol/L Chloride 103 (98-107) mmol/L Carbon Dioxide 26 (22-30) mmol/L Anion Gap 7 (4-12) mmol/L BUN 17 D (7-17) mg/dL Creatinine 0.66 L (0.7-1.0) mg/dL Estim Creat Clear Calc 51 ml/min Estimated GFR > 60 (59 - ) Glucose 206 H (65-110) mg/dL Calcium 10.7 H (8.4-10.2) mg/dL Total Bilirubin 0.8 (0.2-1.3) mg/dL AST 35 (14-36) U/L ALT 22 (6-35) U/L Alkaline Phosphatase 57 (38-126) U/L Total Protein 6.6 (6.3-8.2) g/dL Albumin 3.9 (3.5-5.1) g/dL <Kimmie Haley PA-C - Last Filed: 06/28/25 03:01> Lab Results 06/27/25 06/27/25 Range/Units 23:50 23:51 WBC 4.2 L (4.5-10.0) K/mm3 RBC 3.93 L (4.2-5.4) M/mm3 Hgb 12.3 (12.0-15.0) g/dL Hct 37.3 (37.0-47.0) % MCV 94.9 (80-100) fl MCH 31.3 (26-34) pg MCHC 33.0 (32-36) g/dl RDW 13.6 (11.5-14.5) % Plt Count 87 L (150-375) k/mm3 MPV 11.9 H (7.4-10.4) fl Immature Gran % (Auto) 1.0 H (0-0.5) % Neut % (Auto) 63.6 (45.5-73.1) % Lymph % (Auto) 24.2 (18.3-44.2) % Dubois % (Auto) 7.4 (2.6-8.5) % Eos % (Auto) 3.6 (0-4.4) % Baso % (Auto) 0.2 (0.2-1.2) % Lymph # (Auto) 1.02 (0.9-3.2) K/mm3 Dubois # (Auto) 0.3 (0.1-0.6) K/mm3 Eos # (Auto) 0.2 (0-0.3) K/mm3 Baso # (Auto) 0.0 (0.0-0.1) K/mm3 Abs Immat Gran (auto) 0.04 H (0.00-0.031) K/mm3 Absolute Neuts (auto) 2.7 (1.3-6.7) K/mm3 Absolute Nucleated RBC 0.000 (0.0-0.012) K/mm3 Band Neutrophils % Not Reportable Nucleated RBC % 0.0 (0.0-0.2) % Platelet Estimate Decreased (Adequate) % Immature Plt Fraction 6.2 (0.9-11.2) % Acanthocytes (Spur) Occasional Schistocytes None seen Sodium 136 L (137-145) mmol/L Potassium 4.1 (3.4-5.0) mmol/L Chloride 103 (98-107) mmol/L Carbon Dioxide 26 (22-30) mmol/L Anion Gap 7 (4-12) mmol/L BUN 17 D (7-17) mg/dL Creatinine 0.66 L (0.7-1.0) mg/dL Estim Creat Clear Calc 51 ml/min Estimated GFR > 60 (59 - ) Glucose 206 H (65-110) mg/dL Calcium 10.7 H (8.4-10.2) mg/dL Total Bilirubin 0.8 (0.2-1.3) mg/dL AST 35 (14-36) U/L ALT 22 (6-35) U/L Alkaline Phosphatase 57 (38-126) U/L Total Protein 6.6 (6.3-8.2) g/dL Albumin 3.9 (3.5-5.1) g/dL <Jacobo Rapp MD - Last Filed: 06/28/25 05:08> Imaging Data Radiologist's impression: CT brain: No acute intracranial hemorrhage CT cervical spine: No acute fracture subluxation Chest x-ray: No evidence of acute or active process in the chest Hip/Pelvic x-ray: Acute intertrochanteric fracture of the proximal left femur <Kimmie Haley PA-C - Last Filed: 06/28/25 03:01> Critical Care Time Critical Care Time Critical Care Time: No <Kimmie Haley PA-C - Last Filed: 06/28/25 03:01> Discharge Plan Discharge Clinical Impression: Closed intertrochanteric fracture of left femur Qualifiers: Encounter type: initial encounter Fracture alignment: nondisplaced Qualified Code(s): S72.145A - Nondisplaced intertrochanteric fracture of left femur, initial encounter for closed fracture <Kimmie Haley PA-C - Last Filed: 06/28/25 03:01> Patient Disposition: Still a Patient <Kimmie Haley PA-C - Last Filed: 06/28/25 03:01> Condition: Stable <REBECCA Pimentel Last Filed: 06/28/25 03:01>
[2025-06-28 01:08] LABS: Alanine Aminotransferase 22 U/L (6-35); Albumin Level 3.9 g/dL (3.5-5.1); Alkaline Phosphatase 57 U/L (38-126); Anion Gap 7 mmol/L (4-12); Aspartate Amino Transferase 35 U/L (14-36); Bilirubin,Total 0.8 mg/dL (0.2-1.3); Blood Urea Nitrogen 17 mg/dL (7-17); Calcium 10.7 mg/dL (8.4-10.2); Carbon Dioxide 26 mmol/L (22-30); Chloride 103 mmol/L (98-107); Estimated CRCL calculation 51 ml/min; Estimated Glomerular Filt Rate > 60; Glucose 206 mg/dL (65-110); Potassium 4.1 mmol/L (3.4-5.0); Sodium 136 mmol/L (137-145); Total Protein 6.6 g/dL (6.3-8.2)
[2025-06-28 01:09] LABS: Hematocrit 37.3 % (37.0-47.0); Hemoglobin 12.3 g/dL (12.0-15.0); Immature Granulocyte Percent A 1.0 % (0-0.5); Immature Platelet Fraction Pct 6.2 % (0.9-11.2); Lymphocytes Absolute Auto 1.02 K/mm3 (0.9-3.2); Mean Corpuscular HGB Conc 33.0 g/dl (32-36); Mean Corpuscular Hemoglobin 31.3 pg (26-34); Mean Corpuscular Volume 94.9 fl (80-100); Nucleated Red Blood Cells Absolute Auto 0.000 K/mm3 (0.0-0.012); Nucleated Red Blood Cells Perc 0.0 % (0.0-0.2); Platelet Count Result 87 k/mm3 (150-375); Red Blood Count 3.93 M/mm3 (4.2-5.4); White Blood Count 4.2 K/mm3 (4.5-10.0)
[2025-06-28] MEDS: HYDROmorphone HCL INJ (*CRX) 1 MG/ML SYR 0.5 MG IV PUSH (01:34)
[2025-06-28 01:39] LABS: Acanthocytes Occasional; Schistocytes None Seen
[2025-06-28] MEDS: LOSARTAN POTASSIUM 50 MG TABLET PO (03:05)
[2025-06-28] MEDS: SODIUM CHLORIDE 0.9% IV 1,000 ML 100 ML IV CONT (03:07)
--- NOTE | 2025-06-28 05:13 | PM.IMHP ---
H&P: HPI History of Present Illness Date/Time: 06/28/25 05:13 Chief Complaint: Left hip pain Narrative: This is a 84-year-old female patient who walks with a walker and states that she has had multiple falls in the past. She stated that typically when she falls she is able to get up however today she was using a walker and she tripped over something and she fell on her left hip. She stated that she was not able to move her left leg and was not able to get up. She was not sure if she hit her head or lost consciousness. She is not on any blood thinners. Abnormal labs include a white count of 4.2 , platelet count of 87, sodium of 136, calcium of 10.7 and glucose of 202. Preliminary report on x-ray of the hip and pelvis 2-3 views was read per radiologist as acute intertrochanteric fracture of the proximal left femur. CT of the C-spine without contrast was read as no acute fracture or subluxation of the cervical spine. CT of the head was read as no acute intracranial hemorrhage. It was noted that she has multiple bilateral hyperdense lesions and MRI was recommended. Metastasis is least likely. The patient was given dilaudid and losartan in the emergency room. She was also given a nerve block to the left hip. Her blood pressure was up to 215/83 in the emergency room. Orthopedics has been consulted. She is being admitted to 3rd floor medical floor observation status on the date of service of 06/28/2025 Review of Systems Constitutional: Constitutional: Reports as per HPI and Reports no additional constitutional complaints Eyes: Eyes: Reports as per HPI and Reports no additional eye complaints ENT: Reports system reviewed and no additional complaints, except as documented and Reports Normal hearing present Cardiovascular: Cardiovascular: Reports no additional cardiovascular complaints Respiratory: Respiratory: Reports as per HPI and Reports no additional respiratory complaints Gastrointestinal: Gastrointestinal: Reports as per HPI and Reports no additional gastrointestinal complaints Genitourinary: Genitourinary: Reports no additional female genitourinary complaints Musculoskeletal: Musculoskeletal: Reports no additional musculoskeletal complaints Integumentary/Breasts: Skin/Breast: Reports system reviewed and no additional complaints, except as docu Neurologic: Reports system reviewed and no additional complaints, except as documented and Reports Normal hearing present Psychiatric: Psychiatric: Reports no additional psychiatric complaints and Reports as per HPI Hematologic/Lymphatic: Hematologic/Lymphatic: Reports no additional hematologic/lymphatic complaints Allergic/Immunologic: Allergic/Immunologic: Reports no additional allergic/immunologic complaints [facility] Past Medical History Medical History (Updated 07/02/25 @ 07:16 by Gurmeet Whitaker PA-C) Urinary tract infection DM2 (diabetes mellitus, type 2) Diabetes mellitus Hyperlipidemia Hypertension Surgical History Surgical History H/O: hysterectomy Family History Family History Father Lung cancer Mother Depression Sibling Asthma Depression Thyroid disease Social History Social History (Updated 06/28/25 @ 05:21 by Nataliya Mcneil APRN) Social History: She is retired from childcare. 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 She is . Code status: Full code Smoking status: Former smoker Alcohol intake: never Substance use: never Lack of Transportation: No Lack of Food: Never True Current Housing: I Have Housing Concerned About Future Housing: No Difficulty Paying Gas/Electric Bills: No Difficulty Paying for Meds: No Currently Unemployed: No Education: High School Diploma/GED Difficulty w/ Childcare or Family Care: No Spiritual care concerns: No Meds Home Medications and Allergies Home Medications ?Medication ?Instructions ?Recorded ?Confirmed ?Type atorvastatin 40 mg tablet 40 mg PO DAILY 04/27/21 06/28/25 History ezetimibe 10 mg tablet 10 mg PO DAILY 04/27/21 06/28/25 History losartan 25 mg tablet 25 mg PO DAILY 04/27/21 06/28/25 History metformin 500 mg tablet 500 mg PO BID 04/27/21 06/28/25 History multivitamin 1 tablet PO DAILY 04/27/21 06/28/25 History omega-3 fatty acids 1,000 mg 1,200 mg PO DAILY 04/27/21 06/28/25 History capsule (Fish Oil Concentrate) diclofenac sodium 75 mg PO 07/13/21 History tablet,delayed release Allergies Allergy/AdvReac Type Severity Reaction Status Date / Time No Known Allergies Allergy Verified 06/28/25 03:59 Vital Signs Vital Signs - 24 hr 06/27/25 23:30 06/27/25 23:30 06/27/25 23:45 Temperature 97.5 F L Pulse Rate 74 75 70 Respiratory Rate 17 16 Blood Pressure 215/83 H 215/83 H 208/76 H Pulse Oximetry 100 100 Oxygen Delivery Room Air 06/28/25 00:20 06/28/25 01:00 06/28/25 02:00 Temperature Pulse Rate 68 70 74 Respiratory Rate 15 Blood Pressure 193/72 H 184/71 H 196/69 H Pulse Oximetry 100 Oxygen Delivery 06/28/25 03:00 06/28/25 03:45 Temperature Pulse Rate 79 Respiratory Rate 18 Blood Pressure 184/88 H 186/71 H Pulse Oximetry 97 Oxygen Delivery Exam Const: General: cooperative, healthy appearing, comfortable, no acute distress, well developed, awake, Physically active, average body habitus and well nourished Nutritional Appearance: average body habitus and well nourished Orientation/consciousness: oriented to person and oriented to place HENMT: Head: normal to inspection, No palpable skull fracture present, normocephalic, atraumatic and abrasion Ears: hearing grossly normal bilaterally Eyes: General: appearance normal, both eyes and all related structures Alignment and Position: alignment normal Periorbital: periorbital findings normal Eyelids: eyelids normal Sclera: sclerae normal Pupils: Equal, round and reactive pupils present EOM: EOMs intact bilaterally Neck: Neck: normal visual inspection and full ROM Chest: Chest palpation & inspection: normal inspection of the chest Resp: Effort & Inspection: normal respiratory effort Auscultation: clear to auscultation bilaterally Cardio: Palpation: normal PMI Rate: regular rate Rhythm: regular rhythm Heart sounds: S1 normal heart sound present and S2 normal heart sound present Peripheral pulses: Peripheral pulses 2+ throughout GI: Inspection: normal to inspection Percussion: Yes normal to percussion Auscultation: normal bowel sounds Rectal Exam: deferred Urinary Catheter: Urinary Catheter: patent and draining and urine clear Skin: General skin exam: normal color Lesions: no lesions Rashes: no rashes Trauma: no lacerations or abrasions Wounds: no wounds Hair: normal Nails: normal Neuro: General: oriented to person and oriented to place Cranial nerves: Yes Equal, round and reactive pupils present and Yes Normal hearing present Cognition (Neuro): normal cognition Speech: normal speech Sensory Exam: normal sensation Extrem: General: normal to inspection Right upper extremity: normal to inspection and shoulder/upper arm Left upper extremity: normal to inspection and shoulder/upper arm Right lower extremity: normal to inspection Left lower extremity: hip/thigh Details: tenderness, abnormal ROM and deformity Location: other (Left leg shortened and externally rotated.) Psych: Appearance: grossly normal Mental Status: mental status grossly normal Speech and movement: Normal speech and movement present Affect: normal affect Attitude: cooperative Thought process: Normal thought process present Thought content: Yes Normal thought content present Insight: Fair insight present (Psych) Judgement: Fair judgement present (Psych) H&P: Results Labs Labs: Short CBC 06/27/25 Range/Units 23:51 WBC 4.2 L (4.5-10.0) K/mm3 Hgb 12.3 (12.0-15.0) g/dL Hct 37.3 (37.0-47.0) % Plt Count 87 L (150-375) k/mm3 BMP 06/27/25 23:50 Sodium 136 L Potassium 4.1 Chloride 103 Carbon Dioxide 26 BUN 17 D Creatinine 0.66 L Glucose 206 H Calcium 10.7 H Liver Function 06/27/25 Range/Units 23:50 Total Bilirubin 0.8 (0.2-1.3) mg/dL AST 35 (14-36) U/L ALT 22 (6-35) U/L Alkaline Phosphatase 57 (38-126) U/L Albumin 3.9 (3.5-5.1) g/dL Imaging Chest x-ray: Radiologist's impression: ITS Impressions Chest X-Ray 06/28/25 07:50 IMPRESSION: 1. Mild lingular atelectasis/scarring at the costophrenic angle. No other acute cardiopulmonary disease. Hip/Pelvis X-Ray 06/28/25 07:53 IMPRESSION: 1. 15 degrees varus attenuation: Intertrochanteric fracture the proximal left femur. Cervical Spine CT 06/28/25 08:23 IMPRESSION: HEAD: 1. No acute intracranial findings. 2. Scattered bilateral hyperdense lesions as before, not significantly changed. C-SPINE: 1. No acute fracture. Head CT 06/28/25 08:23 IMPRESSION: HEAD: 1. No acute intracranial findings. 2. Scattered bilateral hyperdense lesions as before, not significantly changed. C-SPINE: 1. No acute fracture. Abdomen/Pelvis CT 06/28/25 13:52 IMPRESSION: 1. Cystic masses of the pancreas, largest measuring 2.2 cm. The differential diagnosis includes pseudocyst, intraductal papillary mucinous neoplasm (IPMN), mucinous cystic neoplasm (MCN), and the less common serous cystadenoma and neuroendocrine tumor. 2: Cholelithiasis with mild gallbladder wall enhancement. No biliary dilatation or cholecystic fluid. 3: Hypovascular lesions of the liver, most likely benign hemangiomas, largest measuring 2.8 cm. 4: Acute left femoral intertrochanteric fracture with varus angulation. Assessment and Plan Assessment and plan (1) Closed intertrochanteric fracture of left femur: Qualifiers: Encounter type: initial encounter Fracture alignment: nondisplaced Qualified Code(s): S72.145A - Nondisplaced intertrochanteric fracture of left femur, initial encounter for closed fracture Code(s): S72.142A - Displaced intertrochanteric fracture of left femur, initial encounter for closed fracture Status: Acute Assessment and Plan: -according the patient this was mechanical fall that occurred while using her walker. -orthopedic physician has been consulted and their input was greatly appreciated. -she has been NPO after midnight. -her platelets are low, recheck her CBC this a.m.. -she did have an EKG that was performed that was read as sinus rhythm first-degree AV block left axis deviation anterior septal myocardial infarction indeterminate age. This is comparable to her last EKG in 2023 -continue with pain management. (2) Thrombocytopenia: Code(s): D69.6 - Thrombocytopenia, unspecified Status: Acute Assessment and Plan: -her platelets are 87. This could possibly be from NSAIDs? However her platelets are typically low it looks like her baseline is somewhere around 102-130. -may consider Hematology consult -her H and H is within normal limits I do not believe that she has an active bleed at this time. (3) Hyperlipidemia: Code(s): E78.5 - Hyperlipidemia, unspecified Status: Acute Assessment and Plan: -the patient is NPO at this time so her Zetia and atorvastatin are on hold. (4) DM2 (diabetes mellitus, type 2): Code(s): E11.9 - Type 2 diabetes mellitus without complications Status: Acute Assessment and Plan: -Accu-Cheks every 6 hours with sliding scale insulin -check A1c if not performed in the last 3 months (5) Hypertension: Code(s): I10 - Essential (primary) hypertension Status: Acute Assessment and Plan: -she was given a dose of losartan in the emergency room which brought her blood pressure down slightly. -p.r.n. Hydralazine with parameters Quality If No VTE Prophylaxis Answer both mechanical and pharmacologic: Reason no mechanical VTE proph: medical contraindication Reason no pharmacologic proph: medical contraindication Abnormal CT of the brain may consider follow-up outpatient MRI
[2025-06-28] MEDS: INSULIN ASPART (*BKC) 100 UNITS/ML SUB-Q ×3 (05:50→23:12)
[2025-06-28] MEDS: HYDROmorphone HCL INJ (*CRX) 1 MG/ML SYR IV PUSH ×2 (05:52→14:32)
[2025-06-28 06:26] LABS: Hematocrit 36.0 % (37.0-47.0); Hemoglobin 11.8 g/dL (12.0-15.0); Immature Platelet Fraction Pct 6.2 % (0.9-11.2); Mean Corpuscular HGB Conc 32.8 g/dl (32-36); Mean Corpuscular Hemoglobin 31.4 pg (26-34); Mean Corpuscular Volume 95.7 fl (80-100); Platelet Count Result 80 k/mm3 (150-375); Red Blood Count 3.76 M/mm3 (4.2-5.4); White Blood Count 7.9 K/mm3 (4.5-10.0)
[2025-06-28 06:52] LABS: Anion Gap 7 mmol/L (4-12); Blood Urea Nitrogen 16 mg/dL (7-17); Calcium 9.7 mg/dL (8.4-10.2); Carbon Dioxide 24 mmol/L (22-30); Chloride 102 mmol/L (98-107); Estimated CRCL calculation 55 ml/min; Estimated Glomerular Filt Rate > 60; Glucose 226 mg/dL (65-110); Potassium 3.7 mmol/L (3.4-5.0); Sodium 133 mmol/L (137-145)
[2025-06-28 07:00] LABS: Troponin I < 0.012 ng/mL (0.000-0.034)
[2025-06-28 08:18] LABS: Hemoglobin A1C 7.2 % (<5.7)
--- NOTE | 2025-06-28 10:47 | WPDONCCN ---
Assessment and Plan Assessment and plan (1) Thrombocytopenia: Code(s): D69.6 - Thrombocytopenia, unspecified Status: Acute Assessment and Plan: CHRONIC THROMBOCYTOPENIA Patient with hx of chronic thrombocytopenia with platelets 102K on 07/13/21, 130K on 04/10/22, 105K on 07/12/24. This admission platelets 87K on 06/27/25 and 80K today 06/28/25. We don't have any labs between 07/12/24 and now 06/27/25 admission. Creatinine is normal. Patient sees a plastic tool maker at [facility] and was told that this is likely her baseline. 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 Liver enzymes normal, albumin normal. CT scan of abd/pelvis to rule out hepatosplenomegaly was performed 06/28/25. No hepatosplenomegaly but there were incidental finding of liver hemangiomas and pancreatic cystic masses. I have ordered viral work up including Hep B, C, HIV. ordered AMRITA. Also ordered platelet antibodies which take few weeks to result. Patient of 80K is not contraindication to orthopedic procedure. If surgeons are concerned then can transfuse 2 units of pheresis platelets before surgery. (2) Pancreatic cyst: Code(s): K86.2 - Cyst of pancreas Status: Acute Assessment and Plan: Incidental finding of cystic masses of the pancreas, largest measuring 2.2 cm. The differential diagnosis included pseudocyst, intraductal papillary mucinous neoplasm (IPMN), mucinous cystic neoplasm (MCN), and the less common serous cystadenoma and neuroendocrine tumor.. Recommend GI consult for further management. HPI Data of Consult Date/Time: 06/28/25 10:47 Requesting Physician: Yamil Mckenzie MD Primary Care Provider: Bereket TalbertMD Consult Narrative Narrative: Jorge Case is a 84 year old female presented to the emergency department 06/27/25 for left hip pain after a ground level fall. Reported she was using her walker, felt like she tripped over something. Fell in her left hip. She did hit her head. She did not lose consciousness. She has not been able to ambulate since. Imaging studies of the left hip/femur showed: Intertrochanteric fracture the proximal left femur. She is admitted for left proximal femur fracture. CBC done at admission on 06/27/25 showed WBC 4.2, [id number], platelets 87K. Today, 06/28/25 Platelets are 80K. Hematology is consulted for thrombocytopenia. Patient and daughter at bedside report that patient has known history of thrombocytopenia and sees a plastic tool maker at [facility] and was told that this is likely chronic and no intervention is needed. She has been seeing her plastic tool maker for past 3 years Review of Systems Review of Systems: Patient states that she is not in pain when not weight bearing on left leg. Denies fever, chills, night sweats. No significant weight loss. No chest pain, dyspnea, cough or hemoptysis. No abdominal pain. No hematochezia or melena. no hematuria or dysuria. No pruritus. Per family she has very poor balance and has been falling at home. She has seen a neurologist and also undergone physical therapy in the past. No lymphadenopathy. [facility] Past Medical History Medical History (Updated 06/28/25 @ 16:50 by Tiffany Elizabeth MD) DM2 (diabetes mellitus, type 2) Diabetes mellitus Hyperlipidemia Hypertension Surgical History Surgical History H/O: hysterectomy Family History Family History Father Lung cancer Mother Depression Sibling Asthma Depression Thyroid disease Social History Social History (Updated 06/28/25 @ 05:21 by Nataliya Mcneil APRN) Social History: She is retired from childcare. 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 She is . Code status: Full code Smoking status: Former smoker Alcohol intake: never Substance use: never Lack of Transportation: No Lack of Food: Never True Current Housing: I Have Housing Concerned About Future Housing: No Difficulty Paying Gas/Electric Bills: No Difficulty Paying for Meds: No Currently Unemployed: No Education: High School Diploma/GED Difficulty w/ Childcare or Family Care: No Spiritual care concerns: No Meds Home Medications and Allergies Home Medications ?Medication ?Instructions ?Recorded ?Confirmed ?Type atorvastatin 40 mg tablet 40 mg PO DAILY 04/27/21 06/28/25 History ezetimibe 10 mg tablet 10 mg PO DAILY 04/27/21 06/28/25 History losartan 25 mg tablet 25 mg PO DAILY 04/27/21 06/28/25 History metformin 500 mg tablet 500 mg PO BID 04/27/21 06/28/25 History multivitamin 1 tablet PO DAILY 04/27/21 06/28/25 History omega-3 fatty acids 1,000 mg 1,200 mg PO DAILY 04/27/21 06/28/25 History capsule (Fish Oil Concentrate) diclofenac sodium 75 mg PO 07/13/21 History tablet,delayed release Allergies Allergy/AdvReac Type Severity Reaction Status Date / Time No Known Allergies Allergy Verified 06/28/25 03:59 Vital Signs Vital Signs - 24 hr 06/27/25 23:30 06/27/25 23:30 06/27/25 23:45 Temperature 36.4 C L Pulse Rate 74 75 70 Respiratory Rate 17 16 Blood Pressure 215/83 H 215/83 H 208/76 H Pulse Oximetry 100 100 Oxygen Delivery Room Air 06/28/25 00:20 06/28/25 01:00 06/28/25 02:00 Temperature Pulse Rate 68 70 74 Respiratory Rate 15 Blood Pressure 193/72 H 184/71 H 196/69 H Pulse Oximetry 100 Oxygen Delivery 06/28/25 03:00 06/28/25 03:45 06/28/25 04:15 Temperature 36.1 C L Pulse Rate 79 73 Respiratory Rate 18 16 Blood Pressure 184/88 H 186/71 H 182/63 H Pulse Oximetry 97 98 Oxygen Delivery Exam Narrative: General: Alert and oriented x3, no acute distress HEENT: EOMI, PERRL, no lymphadenopathy CV: RRR, No m/g/r RESP: Clear to auscultation bilaterally ABD: soft, NT, ND, BS+ EXT: pain in left hip with palpation NEURO: No focal deficits SKIN: no rash or open wounds Results Labs 06/28/25 05:32 06/28/25 05:32 Labs: Short CBC 06/27/25 06/28/25 Range/Units 23:51 05:32 WBC 4.2 L 7.9 (4.5-10.0) K/mm3 Hgb 12.3 11.8 L (12.0-15.0) g/dL Hct 37.3 36.0 L (37.0-47.0) % Plt Count 87 L 80 L (150-375) k/mm3 BMP 06/27/25 06/28/25 23:50 05:32 Sodium 136 L 133 L Potassium 4.1 3.7 Chloride 103 102 Carbon Dioxide 26 24 BUN 17 D 16 Creatinine 0.66 L 0.60 L Glucose 206 H 226 H Calcium 10.7 H 9.7 Cardiac Enzymes 06/28/25 Range/Units 05:32 Troponin I < 0.012 (0.000-0.034) ng/mL Liver Function 06/27/25 Range/Units 23:50 Total Bilirubin 0.8 (0.2-1.3) mg/dL AST 35 (14-36) U/L ALT 22 (6-35) U/L Alkaline Phosphatase 57 (38-126) U/L Albumin 3.9 (3.5-5.1) g/dL Imaging Radiologist's impression: EXAMINATION: XR hip LT 2V w AP pelvis DATE: 06/28/2025 00:22 INDICATION: Left hip pain post fall TECHNIQUE: Anteroposterior view of the pelvis and anteroposterior and cross-table lateral views of the left hip were obtained. COMPARISON: None. FINDINGS: Intertrochanteric fracture the proximal left femur with 15 degrees varus angulation. No other fractures identified. Mild lower lumbar levocurvature with severe spondylosis. 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 Mild to moderate osteoarthritis at the left sacroiliac and right hip joints. Multiple phleboliths in the pelvis. Couple small heterotopic ossicles at the lateral proximal left thigh. IMPRESSION: 1. 15 degrees varus attenuation: EXAMINATION: XR hip LT 2V w AP pelvis DATE: 06/28/2025 00:22 INDICATION: Left hip pain post fall TECHNIQUE: Anteroposterior view of the pelvis and anteroposterior and cross-table lateral views of the left hip were obtained. COMPARISON: None. FINDINGS: Intertrochanteric fracture the proximal left femur with 15 degrees varus angulation. No other fractures identified. Mild lower lumbar levocurvature with severe spondylosis. 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 Mild to moderate osteoarthritis at the left sacroiliac and right hip joints. Multiple phleboliths in the pelvis. Couple small heterotopic ossicles at the lateral proximal left thigh. IMPRESSION: 1. 15 degrees varus attenuation: Intertrochanteric fracture the proximal left femur.. 06/28/25 CT ABDOMEN/PELVIS- FINDINGS: There is dependent atelectasis. Heart size normal. Mild atherosclerosis of the aorta without aneurysm. No lymphadenopathy. There are hypovascular lesions of the liver with peripheral nodular enhancement, largest measuring 2.8 cm in the right hepatic lobe, most likely benign hemangiomas. The spleen, adrenal glands and left kidney are unremarkable. There are small right renal cysts. There is a cystic mass of the pancreatic neck measuring 2.2 x 1.6 cm. There is a smaller cystic mass of the pancreatic tail. Gallbladder contains stones with gallbladder wall enhancement. No significant pericholecystic fluid or biliary dilatation. There is a retroperitoneal 2.6 cm cystic lesion of uncertain significance in the left mid abdomen. The spleen, adrenal glands are unremarkable. Nonobstructive bowel gas pattern. Colonic diverticulosis without evidence for diverticulitis. No free air or free fluid. There is an acute left femoral intertrochanteric fracture with varus angulation. There are severe lumbar spondylosis. IMPRESSION: 1. Cystic masses of the pancreas, largest measuring 2.2 cm. The differential diagnosis includes pseudocyst, intraductal papillary mucinous neoplasm (IPMN), mucinous cystic neoplasm (MCN), and the less common serous cystadenoma and neuroendocrine tumor. 2: Cholelithiasis with mild gallbladder wall enhancement. No biliary dilatation or cholecystic fluid. 3: Hypovascular lesions of the liver, most likely benign hemangiomas, largest measuring 2.8 cm. 4: Acute left femoral intertrochanteric fracture with varus angulation.
--- NOTE | 2025-06-28 11:02 | PM.IMPN ---
Progress Note: A&P Assessment and Plan (1) Closed intertrochanteric fracture of left femur: Qualifiers: Encounter type: initial encounter Fracture alignment: nondisplaced Qualified Code(s): S72.145A - Nondisplaced intertrochanteric fracture of left femur, initial encounter for closed fracture Code(s): S72.142A - Displaced intertrochanteric fracture of left femur, initial encounter for closed fracture Status: Acute Assessment and Plan: -according the patient this was mechanical fall that occurred while using her walker. -orthopedic physician has been consulted and their input was greatly appreciated. -she has been NPO after midnight. -her platelets are low so recheck her CBC this a.m.. -she did have an EKG that was performed that was read as sinus rhythm first-degree AV block left axis deviation anterior septal myocardial infarction indeterminate age. This is comparable to her last EKG in 2023 -continue with pain management. (2) Thrombocytopenia: Code(s): D69.6 - Thrombocytopenia, unspecified Status: Acute Assessment and Plan: -her platelets are 87. This could possibly be from NSAIDs? However her platelets are typically low it looks like her baseline is somewhere around 102-130. -may consider Hematology consult -her H and H is within normal limits I do not believe that she has an active bleed at this time. (3) Hyperlipidemia: Code(s): E78.5 - Hyperlipidemia, unspecified Status: Acute Assessment and Plan: -the patient is NPO at this time so her Zetia and atorvastatin are on hold. (4) DM2 (diabetes mellitus, type 2): Code(s): E11.9 - Type 2 diabetes mellitus without complications Status: Acute Assessment and Plan: -Accu-Cheks every 6 hours with sliding scale insulin -check A1c if not performed in the last 3 months (5) Hypertension: Code(s): I10 - Essential (primary) hypertension Status: Acute Assessment and Plan: -she was given a dose of losartan in the emergency room which brought her blood pressure down slightly. -p.r.n. Hydralazine with parameters Subjective Date/time seen: 06/28/25 11:02 Interval history: Patient was seen during the morning rounds today. Patient pain is under control. No shortness of breath or chest pain. Review of Systems Review of Systems: All systems reviewed & are unremarkable except as noted in HPI and below (the history and physical exam.) Constitutional: Constitutional: Reports as per HPI and Reports no additional constitutional complaints Eyes: Eyes: Reports as per HPI and Reports no additional eye complaints ENT: Reports system reviewed and no additional complaints, except as documented and Reports Normal hearing present Cardiovascular: Cardiovascular: Reports no additional cardiovascular complaints Respiratory: Respiratory: Reports as per HPI and Reports no additional respiratory complaints Gastrointestinal: Gastrointestinal: Reports as per HPI and Reports no additional gastrointestinal complaints Genitourinary: Genitourinary: Reports no additional female genitourinary complaints Musculoskeletal: Musculoskeletal: Reports no additional musculoskeletal complaints Integumentary/Breasts: Skin/Breast: Reports system reviewed and no additional complaints, except as docu Neurologic: Reports system reviewed and no additional complaints, except as documented and Reports Normal hearing present Psychiatric: Psychiatric: Reports no additional psychiatric complaints and Reports as per HPI Hematologic/Lymphatic: Hematologic/Lymphatic: Reports no additional hematologic/lymphatic complaints Allergic/Immunologic: Allergic/Immunologic: Reports no additional allergic/immunologic complaints Exam Const: General: cooperative, healthy appearing, comfortable, no acute distress, well developed, awake, Physically active, average body habitus and well nourished Nutritional Appearance: average body habitus and well nourished Orientation/consciousness: oriented to person and oriented to place HENMT: Head: normal to inspection, No palpable skull fracture present, normocephalic, atraumatic and abrasion Ears: hearing grossly normal bilaterally Eyes: General: appearance normal, both eyes and all related structures Alignment and Position: alignment normal Periorbital: periorbital findings normal Eyelids: eyelids normal Sclera: sclerae normal Pupils: Equal, round and reactive pupils present EOM: EOMs intact bilaterally Neck: Neck: normal visual inspection and full ROM Chest: Chest palpation & inspection: normal inspection of the chest Resp: Effort & Inspection: normal respiratory effort Auscultation: clear to auscultation bilaterally Cardio: Palpation: normal PMI Rate: regular rate Rhythm: regular rhythm Heart sounds: S1 normal heart sound present and S2 normal heart sound present Peripheral pulses: Peripheral pulses 2+ throughout GI: Inspection: normal to inspection Auscultation: normal bowel sounds Rectal Exam: deferred Urinary Catheter: Urinary Catheter: patent and draining and urine clear Skin: General skin exam: normal color Lesions: no lesions Rashes: no rashes Trauma: no lacerations or abrasions Wounds: no wounds Hair: normal Nails: normal Neuro: General: oriented to person and oriented to place Cranial nerves: Yes Equal, round and reactive pupils present and Yes Normal hearing present Cognition (Neuro): normal cognition Speech: normal speech Sensory Exam: normal sensation Extrem: General: normal to inspection Right upper extremity: normal to inspection and shoulder/upper arm Left upper extremity: normal to inspection and shoulder/upper arm Right lower extremity: normal to inspection Left lower extremity: hip/thigh Details: tenderness, abnormal ROM and deformity Location: other (Left leg shortened and externally rotated.) Psych: Appearance: grossly normal Mental Status: mental status grossly normal Speech and movement: Normal speech and movement present Affect: normal affect Attitude: cooperative Thought process: Normal thought process present Insight: Fair insight present (Psych) Judgement: Fair judgement present (Psych) Objective Data Vital Signs Vital Signs: Vital Signs - 24 hr 06/27/25 23:30 06/27/25 23:30 06/27/25 23:45 Temperature 36.4 C L Pulse Rate 74 75 70 Respiratory Rate 17 16 Blood Pressure 215/83 H 215/83 H 208/76 H Pulse Oximetry 100 100 Oxygen Delivery Room Air 06/28/25 00:20 06/28/25 01:00 06/28/25 02:00 Temperature Pulse Rate 68 70 74 Respiratory Rate 15 Blood Pressure 193/72 H 184/71 H 196/69 H Pulse Oximetry 100 Oxygen Delivery 06/28/25 03:00 06/28/25 03:45 06/28/25 04:15 Temperature 36.1 C L Pulse Rate 79 73 Respiratory Rate 18 16 Blood Pressure 184/88 H 186/71 H 182/63 H Pulse Oximetry 97 98 Oxygen Delivery Intake/Output Intake/Output: Intake & Output 06/25/25 06/26/25 06/27/25 06/28/25 23:59 23:59 23:59 23:59 Intake Total 0 Balance 0 Meds/Results Medications: Active Medications Generic Name Dose Route Start Last Admin Trade Name Freq PRN Reason Stop Dose Admin Atorvastatin Calcium 40 mg 06/29/25 09:00 Atorvastatin 40 Mg Tablet PO DAILY [facility] Dextrose 12.5 gm 06/28/25 05:37 Dextrose 50% 25 Gm/50 Ml Syringe IV PUSH PRN PRN Hypoglycemia Protocol Ezetimibe 10 mg 06/29/25 09:00 Ezetimibe 10 Mg Tablet PO DAILY [facility] Fish Oil 1.2 gm 06/29/25 09:00 Supai 3 Polyunsat Fatty Acids 1 Gm Cap PO DAILY [facility] Glucagon 1 mg 06/28/25 05:37 Glucagon For Inj 1 Mg Vial IM PRN PRN Hypoglycemia Protocol Glucose 15 gm 06/28/25 05:37 Glucose Oral Gel 15 Gm Of Glucse In 37.5 Gm Tube PO PRN PRN Hypoglycemia Protocol Hydralazine HCl 10 mg 06/28/25 05:28 06/28/25 05:53 Hydralazine Hcl 20 Mg/Ml Vial IV PUSH 10 mg Q8H PRN Administration Blood Pressure - High Hydromorphone HCl 1 mg 06/28/25 05:29 06/28/25 05:52 Hydromorphone Hcl Inj (*Crx) 1 Mg/Ml Syr IV PUSH 1 mg Q3H PRN Administration Pain Rated 7-10 Sodium Chloride 1,000 mls @ 60 mls/hr 06/28/25 02:35 06/28/25 03:07 Normal Saline Iv IV CONT 06/28/25 13:39 100 mls/hr .[id number] [facility]STIAN Administration Dextrose 1,000 mls @ 100 mls/hr 06/28/25 05:37 Dextrose 5% 1,000 Ml IVPB PRN PRN Hypoglycemia Protocol Insulin Aspart 2 - 5 units 06/28/25 06:00 06/28/25 05:50 Insulin Aspart (*Bkc) 100 Units/Ml SUB-Q 2 units Q6HR [facility] Administration Protocol Losartan Potassium 25 mg 06/29/25 09:00 Losartan Potassium 25 Mg Tablet PO DAILY [facility] Multivitamins Therapeutic 1 tablet 06/29/25 09:00 Multivitamins Therapeutic Tab (*Bkc) PO DAILY [facility] Radiology Results: ITS Impressions Chest X-Ray 06/28/25 07:50 IMPRESSION: 1. Mild lingular atelectasis/scarring at the costophrenic angle. No other acute cardiopulmonary disease. Hip/Pelvis X-Ray 06/28/25 07:53 IMPRESSION: 1. 15 degrees varus attenuation: Intertrochanteric fracture the proximal left femur. Cervical Spine CT 06/28/25 08:23 IMPRESSION: HEAD: 1. No acute intracranial findings. 2. Scattered bilateral hyperdense lesions as before, not significantly changed. C-SPINE: 1. No acute fracture. Head CT 06/28/25 08:23 IMPRESSION: HEAD: 1. No acute intracranial findings. 2. Scattered bilateral hyperdense lesions as before, not significantly changed. C-SPINE: 1. No acute fracture. Labs Labs: Laboratory Results - last 24 hr 06/27/25 06/27/25 06/28/25 23:50 23:51 04:35 WBC 4.2 L RBC 3.93 L Hgb 12.3 Hct 37.3 MCV 94.9 MCH 31.3 MCHC 33.0 RDW 13.6 Plt Count 87 L MPV 11.9 H Immature Gran % (Auto) 1.0 H Neut % (Auto) 63.6 Lymph % (Auto) 24.2 Roosevelt % (Auto) 7.4 Eos % (Auto) 3.6 Baso % (Auto) 0.2 Lymph # (Auto) 1.02 Roosevelt # (Auto) 0.3 Eos # (Auto) 0.2 Baso # (Auto) 0.0 Abs Immat Gran (auto) 0.04 H Absolute Neuts (auto) 2.7 Absolute Nucleated RBC 0.000 Band Neutrophils % Not Reportable Nucleated RBC % 0.0 Platelet Estimate Decreased % Immature Plt Fraction 6.2 Acanthocytes (Spur) Occasional Schistocytes None seen Sodium 136 L Potassium 4.1 Chloride 103 Carbon Dioxide 26 Anion Gap 7 BUN 17 D Creatinine 0.66 L Estim Creat Clear Calc 51 Estimated GFR > 60 Glucose 206 H POC Capillary Glucose 202 H Hemoglobin A1c Calcium 10.7 H Total Bilirubin 0.8 AST 35 ALT 22 Alkaline Phosphatase 57 Troponin I Total Protein 6.6 Albumin 3.9 06/28/25 06/28/25 05:30 05:32 WBC 7.9 RBC 3.76 L Hgb 11.8 L Hct 36.0 L MCV 95.7 MCH 31.4 MCHC 32.8 RDW 13.6 Plt Count 80 L MPV 11.7 H Immature Gran % (Auto) Neut % (Auto) Lymph % (Auto) Roosevelt % (Auto) Eos % (Auto) Baso % (Auto) Lymph # (Auto) Roosevelt # (Auto) Eos # (Auto) Baso # (Auto) Abs Immat Gran (auto) Absolute Neuts (auto) Absolute Nucleated RBC Band Neutrophils % Nucleated RBC % Platelet Estimate % Immature Plt Fraction 6.2 Acanthocytes (Spur) Schistocytes Sodium 133 L Potassium 3.7 Chloride 102 Carbon Dioxide 24 Anion Gap 7 BUN 16 Creatinine 0.60 L Estim Creat Clear Calc 55 Estimated GFR > 60 Glucose 226 H POC Capillary Glucose Hemoglobin A1c 7.2 H Calcium 9.7 Total Bilirubin AST ALT Alkaline Phosphatase Troponin I < 0.012 Total Protein Albumin
[2025-06-28 12:17] LABS: HIV 1/2 Ab P24 Ag Result Negative (Negative)
[2025-06-28 12:26] LABS: Hepatitis B Surface Anti Res Negative
[2025-06-29] VITALS (14 sets, daily range): BP systolic 125–180; BP diastolic 49–83; PULSE 91–104; RESP 12–20; TEMP 36.3–36.7; O2SAT 92–100
[2025-06-29] MEDS: HYDROmorphone HCL INJ (*CRX) 1 MG/ML SYR IV PUSH ×2 (01:35→18:54)
[2025-06-29 05:44] LABS: Hematocrit 34.6 % (37.0-47.0); Hemoglobin 11.6 g/dL (12.0-15.0); Immature Platelet Fraction Pct 4.9 % (0.9-11.2); Mean Corpuscular HGB Conc 33.5 g/dl (32-36); Mean Corpuscular Hemoglobin 31.4 pg (26-34); Mean Corpuscular Volume 93.5 fl (80-100); Red Blood Count 3.70 M/mm3 (4.2-5.4); White Blood Count 7.2 K/mm3 (4.5-10.0)
[2025-06-29 05:46] LABS: Platelet Count Result 84 k/mm3 (150-375)
[2025-06-29 06:02] LABS: Alanine Aminotransferase 16 U/L (6-35); Albumin Level 3.4 g/dL (3.5-5.1); Alkaline Phosphatase 56 U/L (38-126); Anion Gap 6 mmol/L (4-12); Aspartate Amino Transferase 21 U/L (14-36); Bilirubin,Total 1.2 mg/dL (0.2-1.3); Blood Urea Nitrogen 15 mg/dL (7-17); Calcium 9.6 mg/dL (8.4-10.2); Carbon Dioxide 21 mmol/L (22-30); Chloride 105 mmol/L (98-107); Estimated CRCL calculation 54 ml/min; Estimated Glomerular Filt Rate > 60; Glucose 207 mg/dL (65-110); Potassium 3.7 mmol/L (3.4-5.0); Sodium 132 mmol/L (137-145); Total Protein 6.1 g/dL (6.3-8.2)
[2025-06-29] MEDS: INSULIN ASPART (*BKC) 100 UNITS/ML SUB-Q ×4 (06:36→22:38)
[2025-06-29 07:09] LABS: Hep B Core Ab, Total Negative (Negative)
--- NOTE | 2025-06-29 07:34 | WPDANESEPPF ---
Anes - Initial Pre Proc Eval Procedure: Operation Date: 06/29/25 07:30 Proposed Procedures p Left Intertrochanteric Nail - Ryan Betancourt MD Date/Time: 06/29/25 07:34 Surgeon: Yamil Mckenzie MD Pre Op Diagnosis: Left intertrochanteric hip fracture Patient Data Age: 84 Gender: F Height: 1.65 m Weight: 70.3 kg Last Vital Signs Temp 36.6 C 06/29/25 04:00 Pulse 91 06/29/25 04:00 Resp 20 06/29/25 04:00 BP 172/64 H 06/29/25 04:00 Pulse Ox 95 06/29/25 04:00 O2 Del Method Room Air 06/28/25 20:00 Allergies Allergy/AdvReac Type Severity Reaction Status Date / Time No Known Allergies Allergy Verified 06/28/25 03:59 Home Medications ?Medication ?Instructions ?Recorded ?Confirmed ?Type atorvastatin 40 mg tablet 40 mg PO DAILY 04/27/21 06/28/25 History ezetimibe 10 mg tablet 10 mg PO DAILY 04/27/21 06/28/25 History losartan 25 mg tablet 25 mg PO DAILY 04/27/21 06/28/25 History metformin 500 mg tablet 500 mg PO BID 04/27/21 06/28/25 History multivitamin 1 tablet PO DAILY 04/27/21 06/28/25 History omega-3 fatty acids 1,000 mg 1,200 mg PO DAILY 04/27/21 06/28/25 History capsule (Fish Oil Concentrate) diclofenac sodium 75 mg PO 07/13/21 History tablet,delayed release Laboratory Tests 06/28/25 06/28/25 06/28/25 05:30 11:08 11:11 WBC RBC Hgb Hct MCV MCH MCHC RDW Plt Count MPV % Immature Plt Fraction Sodium Potassium Chloride Carbon Dioxide Anion Gap BUN Creatinine Estim Creat Clear Calc Estimated GFR Glucose POC Capillary Glucose Hemoglobin A1c 7.2 H % (<5.7) Calcium Total Bilirubin AST ALT Alkaline Phosphatase Total Protein Albumin Direct Plt-Bound IgG Ab Cancelled Anti-Plt HLA Class I Ab Anti-Plt GP IV Plasma Anti-Plt IIb/IIIa Plasma Anti-Plt Ia/IIa Plasma Anti-Plt Ib/IX Hep Bs Antibody Hep B Core Total Ab Negative (Negative) Hepatitis C Ab Screen HIV 1&2 Ab/P24 Ag 4thGn 06/28/25 06/28/25 06/28/25 11:11 11:51 16:38 WBC RBC Hgb Hct MCV MCH MCHC RDW Plt Count MPV % Immature Plt Fraction Sodium Potassium Chloride Carbon Dioxide Anion Gap BUN Creatinine Estim Creat Clear Calc Estimated GFR Glucose POC Capillary Glucose 206 H mg/dl 142 H mg/dl (65-105) (65-105) Hemoglobin A1c Calcium Total Bilirubin AST ALT Alkaline Phosphatase Total Protein Albumin Direct Plt-Bound IgG Ab Cancelled Anti-Plt HLA Class I Ab Pending Anti-Plt GP IV Pending Plasma Anti-Plt IIb/IIIa Pending Plasma Anti-Plt Ia/IIa Pending Plasma Anti-Plt Ib/IX Pending Hep Bs Antibody Negative Hep B Core Total Ab Cancelled Hepatitis C Ab Screen Negative (Negative) HIV 1&2 Ab/P24 Ag 4thGn Negative (Negative) 06/28/25 06/29/25 06/29/25 23:08 05:29 06:16 WBC 7.2 K/mm3 (4.5-10.0) RBC 3.70 L M/mm3 (4.2-5.4) Hgb 11.6 L g/dL (12.0-15.0) Hct 34.6 L % (37.0-47.0) MCV 93.5 fl (80-100) MCH 31.4 pg (26-34) MCHC 33.5 g/dl (32-36) RDW 14.0 % (11.5-14.5) Plt Count 84 L k/mm3 (150-375) MPV 11.0 H fl (7.4-10.4) % Immature Plt Fraction 4.9 % (0.9-11.2) Sodium 132 L mmol/L (137-145) Potassium 3.7 mmol/L (3.4-5.0) Chloride 105 mmol/L (98-107) Carbon Dioxide 21 L mmol/L (22-30) Anion Gap 6 mmol/L (4-12) BUN 15 mg/dL (7-17) Creatinine 0.61 L mg/dL (0.7-1.0) Estim Creat Clear Calc 54 ml/min Estimated GFR > 60 (59 - ) Glucose 207 H mg/dL (65-110) POC Capillary Glucose 228 H mg/dl 212 H mg/dl (65-105) (65-105) Hemoglobin A1c Calcium 9.6 mg/dL (8.4-10.2) Total Bilirubin 1.2 mg/dL (0.2-1.3) AST 21 U/L (14-36) ALT 16 U/L (6-35) Alkaline Phosphatase 56 U/L (38-126) Total Protein 6.1 L g/dL (6.3-8.2) Albumin 3.4 L g/dL (3.5-5.1) Direct Plt-Bound IgG Ab Anti-Plt HLA Class I Ab Anti-Plt GP IV Plasma Anti-Plt IIb/IIIa Plasma Anti-Plt Ia/IIa Plasma Anti-Plt Ib/IX Hep Bs Antibody Hep B Core Total Ab Hepatitis C Ab Screen HIV 1&2 Ab/P24 Ag 4thGn Patient hx anesthesia problems: none Family hx anesthesia problems: none Results Review: All pre-operative results and documents have been reviewed as part of the pre-operative evaluation. [facility] Past Medical History Medical History (Updated 06/28/25 @ 16:50 by Tiffany Elizabeth MD) DM2 (diabetes mellitus, type 2) Diabetes mellitus Hyperlipidemia Hypertension Surgical History Surgical History H/O: hysterectomy Family History Family History Father Lung cancer Mother Depression Sibling Asthma Depression Thyroid disease Social History Social History (Updated 06/28/25 @ 05:21 by Nataliya Mcneil APRN) Social History: She is retired from childcare. 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 She is . Code status: Full code Smoking status: Former smoker Alcohol intake: never Substance use: never Lack of Transportation: No Lack of Food: Never True Current Housing: I Have Housing Concerned About Future Housing: No Difficulty Paying Gas/Electric Bills: No Difficulty Paying for Meds: No Currently Unemployed: No Education: High School Diploma/GED Difficulty w/ Childcare or Family Care: No Spiritual care concerns: No Anes - Eval Final PreProcedure Day of Procedure 06/29/25 07:34 Patient weight: overweight Heart: regular rate and rhythm Lungs: clear to auscultation Airway: Mallampati scale class II Neurological: alert and oriented Last oral intake: >/= 8 hours ASA classification: III Emergent: no Anesthetic plan: proceed Anesthesia type and monitoring: general LMA and standard monitoring Results Review: All pre-operative results and documents have been reviewed as part of the pre-operative evaluation. Informed Consent: The patient's anesthetic plan and its attendant risks and benefits were discussed with the patient/family/POA. Questions were solicited and answers provided to the satisfaction of the patient/family/POA.
--- NOTE | 2025-06-29 07:41 | PM.CNOR ---
Assessment and Plan Assessment and plan (1) Closed intertrochanteric fracture of left femur: Qualifiers: Encounter type: initial encounter Fracture alignment: nondisplaced Qualified Code(s): S72.145A - Nondisplaced intertrochanteric fracture of left femur, initial encounter for closed fracture Code(s): S72.142A - Displaced intertrochanteric fracture of left femur, initial encounter for closed fracture Status: Acute Plan This is an 84-year-old female that presents to the emergency department for left hip pain after a ground level fall. Reports she was using her walker, felt like she tripped over something. Fell in her left hip. She did hit her head. She did not lose consciousness. Plan Left Hip IT Fx Marcell Fixation. discussed with daughter and son in law. Risks include but are not limited to infx, nerve or blood vesel injury, and they agree to proceed. History of Present Illness HPI Consult date: 06/29/25 Chief complaint: Left intertrochanteric hip fracture Narrative: This is an 84-year-old female that presents to the emergency department for left hip pain after a ground level fall. Reports she was using her walker, felt like she tripped over something. Fell in her left hip. She did hit her head. She did not lose consciousness. [facility] Past Medical History Medical History (Updated 06/28/25 @ 16:50 by Tiffany Elizabeth MD) DM2 (diabetes mellitus, type 2) Diabetes mellitus Hyperlipidemia Hypertension Surgical History Surgical History H/O: hysterectomy Family History Family History Father Lung cancer Mother Depression Sibling Asthma Depression Thyroid disease Social History Social History (Updated 06/28/25 @ 05:21 by Nataliya Mcneil APRN) Social History: She is retired from childcare. 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 She is . Code status: Full code Smoking status: Former smoker Alcohol intake: never Substance use: never Lack of Transportation: No Lack of Food: Never True Current Housing: I Have Housing Concerned About Future Housing: No Difficulty Paying Gas/Electric Bills: No Difficulty Paying for Meds: No Currently Unemployed: No Education: High School Diploma/GED Difficulty w/ Childcare or Family Care: No Spiritual care concerns: No Meds Home Medications and Allergies Home Medications ?Medication ?Instructions ?Recorded ?Confirmed ?Type atorvastatin 40 mg tablet 40 mg PO DAILY 04/27/21 06/28/25 History ezetimibe 10 mg tablet 10 mg PO DAILY 04/27/21 06/28/25 History losartan 25 mg tablet 25 mg PO DAILY 04/27/21 06/28/25 History metformin 500 mg tablet 500 mg PO BID 04/27/21 06/28/25 History multivitamin 1 tablet PO DAILY 04/27/21 06/28/25 History omega-3 fatty acids 1,000 mg 1,200 mg PO DAILY 04/27/21 06/28/25 History capsule (Fish Oil Concentrate) diclofenac sodium 75 mg PO 07/13/21 History tablet,delayed release Allergies Allergy/AdvReac Type Severity Reaction Status Date / Time No Known Allergies Allergy Verified 06/28/25 03:59 Vital Signs Vital Signs - 24 hr 06/28/25 08:00 06/28/25 12:00 06/28/25 14:00 Temperature 36.4 C L 36.3 C L 36.4 C L Pulse Rate 80 84 82 Respiratory Rate 20 18 18 Blood Pressure 149/48 H 140/70 140/50 L Pulse Oximetry 99 99 98 Oxygen Delivery 06/28/25 16:00 06/28/25 20:00 06/28/25 20:00 Temperature 36.6 C 36.8 C Pulse Rate 84 86 Respiratory Rate 20 20 Blood Pressure 142/54 H 154/69 H Pulse Oximetry 100 99 Oxygen Delivery Room Air 06/29/25 00:00 06/29/25 04:00 Temperature 36.7 C 36.6 C Pulse Rate 92 91 Respiratory Rate 16 20 Blood Pressure 169/62 H 172/64 H Pulse Oximetry 98 95 Oxygen Delivery Exam Narrative: Left lower extremity shortened and externally rotated. NVI no swelling or tenderness at knees or ankles. Const: General: cooperative, healthy appearing, comfortable, no acute distress, well developed, alert and awake Results Labs 06/29/25 05:29 06/29/25 05:29 Labs: Abnormal lab results 06/28/25 06/28/25 06/28/25 Range/Units 05:30 11:51 16:38 RBC (4.2-5.4) M/mm3 Hgb (12.0-15.0) g/dL Hct (37.0-47.0) % Plt Count (150-375) k/mm3 MPV (7.4-10.4) fl Sodium (137-145) mmol/L Carbon Dioxide (22-30) mmol/L Creatinine (0.7-1.0) mg/dL Glucose (65-110) mg/dL POC Capillary Glucose 206 H 142 H (65-105) mg/dl Hemoglobin A1c 7.2 H (<5.7) % Total Protein (6.3-8.2) g/dL Albumin (3.5-5.1) g/dL 06/28/25 06/29/25 06/29/25 Range/Units 23:08 05:29 06:16 RBC 3.70 L (4.2-5.4) M/mm3 Hgb 11.6 L (12.0-15.0) g/dL Hct 34.6 L (37.0-47.0) % Plt Count 84 L (150-375) k/mm3 MPV 11.0 H (7.4-10.4) fl Sodium 132 L (137-145) mmol/L Carbon Dioxide 21 L (22-30) mmol/L Creatinine 0.61 L (0.7-1.0) mg/dL Glucose 207 H (65-110) mg/dL POC Capillary Glucose 228 H 212 H (65-105) mg/dl Hemoglobin A1c (<5.7) % Total Protein 6.1 L (6.3-8.2) g/dL Albumin 3.4 L (3.5-5.1) g/dL H & H 06/27/25 06/28/25 06/29/25 Range/Units 23:51 05:32 05:29 Hgb 12.3 11.8 L 11.6 L (12.0-15.0) g/dL Hct 37.3 36.0 L 34.6 L (37.0-47.0) % All other labs normal.
--- NOTE | 2025-06-29 07:44 | WPDHPUPDATE1 ---
History and Physical Update Update Date/Time: 06/29/25 07:44 History and Physical has been reviewed, including an updated exam of the patient. There are NO changes in the patient's condition. Risks, benefits, and alternatives have been discussed and questions answered. Patient agrees to proceed with procedure. Left Hip IT fx lori fixation
[2025-06-29] MEDS: LACTATED RINGERS 1,000 ML 30 ML IV CONT (08:00)
[2025-06-29] MEDS: ceFAZolin 2 GM in SODIUM CHLORIDE 0.9% IV 50 ML 100 ML IVPB ×3 (08:05→23:50)
[2025-06-29] MEDS: LIDO 1%/EPINEPHRINE 1:100,000 20 ML VIAL 30 ML INFILTRATE (08:23)
--- NOTE | 2025-06-29 11:24 | WPDONCPN ---
Progress Note: A&P Assessment and Plan (1) Thrombocytopenia: Code(s): D69.6 - Thrombocytopenia, unspecified Status: Acute Assessment and Plan: CHRONIC THROMBOCYTOPENIA Patient with hx of chronic thrombocytopenia with platelets 102K on 07/13/21, 130K on 04/10/22, 105K on 07/12/24. This admission platelets 87K on 06/27/25 and 80K today 06/28/25. We don't have any labs between 07/12/24 and now 06/27/25 admission. Creatinine is normal. Patient sees a selling manager at [facility] and was told that this is likely her baseline. 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 Liver enzymes normal, albumin normal. CT scan of abd/pelvis to rule out hepatosplenomegaly was performed 06/28/25. No hepatosplenomegaly but there were incidental finding of liver hemangiomas and pancreatic cystic masses. I have ordered viral work up including Hep B, C, HIV. ordered AMRITA. Viral work up is negative. Also ordered platelet antibodies which take few weeks to result and are pending Patient underwent orthopedic surgery this morning. Platelets were 84K. Monitor for excess bleeding and transfuse platelets if needed. Patient should see her selling manager 4-6 weeks post discharge for repeat CBC and thrombocytopenia monitoring. (2) Pancreatic cyst: Code(s): K86.2 - Cyst of pancreas Status: Acute Assessment and Plan: Incidental finding of cystic masses of the pancreas, largest measuring 2.2 cm. The differential diagnosis included pseudocyst, intraductal papillary mucinous neoplasm (IPMN), mucinous cystic neoplasm (MCN), and the less common serous cystadenoma and neuroendocrine tumor. I discussed the finding of pancreatic cyst to patient, her daughter and son present in room on 06/28/25. RE Recommend GI consult for further management as outpatient. Patient and family was notified to seek GI referral as outpatient by PCP. Subjective Date/time seen: 06/29/25 11:24 Interval history: Patient underwent orthopedic surgery with Left hip Internal Marcell Fixation this morning for left intertrochanteric closed fracture of femur. Patient is sitting on chair at bedside. Denies pain or dyspnea Review of Systems Review of Systems Patient underwent Left hip fracture surgery this morning and doing well. No increased pain. Denies fever, chills, night sweats. No significant weight loss. No chest pain, dyspnea, cough or hemoptysis. No abdominal pain. No hematochezia or melena. no hematuria or dysuria. No pruritus. Per family she has very poor balance and has been falling at home. She has seen a neurologist and also undergone physical therapy in the past. No lymphadenopathy. Exam Narrative: General: Alert and oriented x3, no acute distress HEENT: EOMI, PERRL, no lymphadenopathy CV: RRR, No m/g/r RESP: Clear to auscultation bilaterally ABD: soft, NT, ND, BS+ EXT: pain in left hip with palpation NEURO: No focal deficits SKIN: no rash or open wounds Objective Data Vital Signs Vital Signs: Vital Signs - 24 hr 06/28/25 12:00 06/28/25 14:00 06/28/25 16:00 Temperature 36.3 C L 36.4 C L 36.6 C Pulse Rate 84 82 84 Respiratory Rate 18 18 20 Blood Pressure 140/70 140/50 L 142/54 H Pulse Oximetry 99 98 100 Oxygen Delivery Oxygen Flow Rate 06/28/25 20:00 06/28/25 20:00 06/29/25 00:00 Temperature 36.8 C 36.7 C Pulse Rate 86 92 Respiratory Rate 20 16 Blood Pressure 154/69 H 169/62 H Pulse Oximetry 99 98 Oxygen Delivery Room Air Oxygen Flow Rate 06/29/25 04:00 06/29/25 09:01 06/29/25 09:15 Temperature 36.6 C 36.3 C L Pulse Rate 91 97 93 Respiratory Rate 20 12 14 Blood Pressure 172/64 H 125/65 158/83 H Pulse Oximetry 95 100 100 Oxygen Delivery Simple Face Mask Simple Face Mask Oxygen Flow Rate 6 6 06/29/25 09:30 06/29/25 09:45 06/29/25 10:00 Temperature 36.6 C Pulse Rate 94 94 93 Respiratory Rate 16 16 16 Blood Pressure 153/80 H 180/60 H 154/74 H Pulse Oximetry 100 93 95 Oxygen Delivery Simple Face Mask Room Air Room Air Oxygen Flow Rate 6 06/29/25 10:17 06/29/25 10:51 Temperature 36.4 C L Pulse Rate 92 91 Respiratory Rate 16 20 Blood Pressure 164/62 H 164/66 H Pulse Oximetry 95 92 Oxygen Delivery Room Air Oxygen Flow Rate Intake/Output Intake/Output: Intake & Output 09/10/25 06/27/25 06/28/25 06/29/25 23:59 23:59 23:59 23:59 Intake Total 1970 91 Output Total 900 450 Balance 1070 -359 Meds/Results Medications: Active Medications Generic Name Dose Route Start Last Admin Trade Name Freq PRN Reason Stop Dose Admin Acetaminophen 500 mg 06/29/25 09:09 Acetaminophen 500 Mg Tablet PO Q6H PRN Pain Rated 1-3 Hydrocodone Bitart/Acetaminophen 1 tab 06/29/25 09:09 Hydrocodone/Acetaminophen (*Crx) 5-325 Mg Tablet PO Q4H PRN Pain Rated 4-6 Hydrocodone Bitart/Acetaminophen 1 tab 06/29/25 09:09 Hydrocodone/Acetaminophen (*Crx) 10-325 Mg Tablet PO Q4H PRN Pain Rated 7-10 Aspirin 81 mg 06/29/25 21:00 Aspirin 81 Mg Enteric Tablet PO Q12HR [facility] Atorvastatin Calcium 40 mg 06/29/25 09:00 Atorvastatin 40 Mg Tablet PO DAILY [facility] Dextrose 12.5 gm 06/28/25 05:37 Dextrose 50% 25 Gm/50 Ml Syringe IV PUSH PRN PRN Hypoglycemia Protocol Ezetimibe 10 mg 06/29/25 09:00 Ezetimibe 10 Mg Tablet PO DAILY [facility] Famotidine 20 mg 06/29/25 21:00 Famotidine 20 Mg Tablet PO Q12HR [facility] Fentanyl Citrate 25 mcg 06/29/25 07:38 Fentanyl Citrate Inj (*Crx) 100 Mcg/2 Ml Vial IV PUSH Q2M PRN Pain Fish Oil 1 gm 06/29/25 09:00 [place] 3 Polyunsat Fatty Acids 1 Gm Cap PO DAILY [facility] Glucagon 1 mg 06/28/25 05:37 Glucagon For Inj 1 Mg Vial IM PRN PRN Hypoglycemia Protocol Glucose 15 gm 06/28/25 05:37 Glucose Oral Gel 15 Gm Of Glucse In 37.5 Gm Tube PO PRN PRN Hypoglycemia Protocol Hydralazine HCl 10 mg 06/28/25 05:28 06/28/25 05:53 Hydralazine Hcl 20 Mg/Ml Vial IV PUSH 10 mg Q8H PRN Administration Blood Pressure - High Hydromorphone HCl 1 mg 06/28/25 05:29 06/29/25 01:35 Hydromorphone Hcl Inj (*Crx) 1 Mg/Ml Syr IV PUSH 1 mg Q3H PRN Administration Pain Rated 7-10 Hydromorphone HCl 1 mg 06/29/25 09:09 Hydromorphone Hcl Inj (*Crx) 1 Mg/Ml Syr IV PUSH Q2H PRN Breakthrough Pain Rated 7-10 or NPO Hydromorphone HCl 0.5 mg 06/29/25 09:09 Hydromorphone Hcl Inj (*Crx) 1 Mg/Ml Syr IV PUSH Q2H PRN Breakthrough Pain Rated 4-6 or NPO Dextrose 1,000 mls @ 100 mls/hr 06/28/25 05:37 Dextrose 5% 1,000 Ml IVPB PRN PRN Hypoglycemia Protocol Lactated Ringer's 1,000 mls @ 30 mls/hr 06/29/25 07:40 06/29/25 09:22 Lr - Lactated Ringers Iv IV CONT 30 mls/hr .Q24H [facility] Infusion Lactated Ringer's 1,000 mls @ 30 mls/hr 06/29/25 07:40 06/29/25 11:21 Lr - Lactated Ringers Iv IV CONT Not Given .Q24H [facility] Cefazolin Sodium 2 gm/ Sodium 50 mls @ 100 mls/hr 06/29/25 16:00 Chloride IVPB 06/30/25 08:29 Q8H [facility] Sodium Chloride 1,000 mls @ 125 mls/hr 06/29/25 09:10 Normal Saline Iv IV CONT .Q8H [facility] Ibuprofen 800 mg in 200 mls @ 400 mls/hr 06/29/25 09:09 Caldolor 800 Mg/200 Ml IVPB Q6H PRN Breakthrough Pain Rated 1-3 or NPO Insulin Aspart 2 - 5 units 06/28/25 06:00 06/29/25 06:36 Insulin Aspart (*Bkc) 100 Units/Ml SUB-Q 2 units Q6HR [facility] Administration Protocol Losartan Potassium 25 mg 06/29/25 09:00 Losartan Potassium 25 Mg Tablet PO DAILY [facility] Miscellaneous Information 1 each 06/29/25 00:01 Hydromorphone Is Duplicate Prn With Morphine For Breakthrough Pain 4-6 Or Npo. Please Cla XX 07/29/25 00:00 CLARIFY [facility] Morphine Sulfate 2 mg 06/29/25 09:09 Morphine Sulfate (*Crx) 2 Mg/Ml Inj IV PUSH Q2H PRN Breakthrough Pain Rated 4-6 or NPO Multivitamins Therapeutic 1 tablet 06/29/25 09:00 Multivitamins Therapeutic Tab (*Bkc) PO DAILY [facility] Naloxone HCl 0.1 mg 06/29/25 09:09 Naloxone Hcl 0.4 Mg/Ml Vial IV PUSH Q2M PRN Opiate Reversal Ondansetron HCl 4 mg 06/29/25 07:38 Ondansetron Inj 4 Mg/2 Ml Vial IV PUSH ONCE PRN Nausea Ondansetron HCl 4 mg 06/29/25 09:09 Ondansetron Inj 4 Mg/2 Ml Vial IV PUSH Q4H PRN Nausea And Vomiting Polyethylene Glycol 17 gm 06/30/25 09:00 Polyethylene Glycol 3350 17 Gm Powd.Pack PO QAM [facility] Senna/Docusate Sodium 2 tab 06/29/25 17:00 Senna/Docusate Sodium Tablet PO BID [facility] Radiology Results: ITS Impressions Chest X-Ray 06/28/25 07:50 IMPRESSION: 1. Mild lingular atelectasis/scarring at the costophrenic angle. No other acute cardiopulmonary disease. Hip/Pelvis X-Ray 06/28/25 07:53 IMPRESSION: 1. 15 degrees varus attenuation: Intertrochanteric fracture the proximal left femur. Cervical Spine CT 06/28/25 08:23 IMPRESSION: HEAD: 1. No acute intracranial findings. 2. Scattered bilateral hyperdense lesions as before, not significantly changed. C-SPINE: 1. No acute fracture. Head CT 06/28/25 08:23 IMPRESSION: HEAD: 1. No acute intracranial findings. 2. Scattered bilateral hyperdense lesions as before, not significantly changed. C-SPINE: 1. No acute fracture. Abdomen/Pelvis CT 06/28/25 13:52 IMPRESSION: 1. Cystic masses of the pancreas, largest measuring 2.2 cm. The differential diagnosis includes pseudocyst, intraductal papillary mucinous neoplasm (IPMN), mucinous cystic neoplasm (MCN), and the less common serous cystadenoma and neuroendocrine tumor. 2: Cholelithiasis with mild gallbladder wall enhancement. No biliary dilatation or cholecystic fluid. 3: Hypovascular lesions of the liver, most likely benign hemangiomas, largest measuring 2.8 cm. 4: Acute left femoral intertrochanteric fracture with varus angulation. Labs Labs: Laboratory Results - last 24 hr 06/28/25 06/28/25 06/28/25 11:08 11:11 11:51 WBC RBC Hgb Hct MCV MCH MCHC RDW Plt Count MPV % Immature Plt Fraction Sodium Potassium Chloride Carbon Dioxide Anion Gap BUN Creatinine Estim Creat Clear Calc Estimated GFR Glucose POC Capillary Glucose 206 H Calcium Total Bilirubin AST ALT Alkaline Phosphatase Total Protein Albumin Direct Plt-Bound IgG Ab Cancelled Hep Bs Antibody Negative Hep B Core Total Ab Negative Hepatitis C Ab Screen Negative HIV 1&2 Ab/P24 Ag 4thGn Negative 06/28/25 06/28/25 06/29/25 16:38 23:08 05:29 WBC 7.2 RBC 3.70 L Hgb 11.6 L Hct 34.6 L MCV 93.5 MCH 31.4 MCHC 33.5 RDW 14.0 Plt Count 84 L MPV 11.0 H % Immature Plt Fraction 4.9 Sodium 132 L Potassium 3.7 Chloride 105 Carbon Dioxide 21 L Anion Gap 6 BUN 15 Creatinine 0.61 L Estim Creat Clear Calc 54 Estimated GFR > 60 Glucose 207 H POC Capillary Glucose 142 H 228 H Calcium 9.6 Total Bilirubin 1.2 AST 21 ALT 16 Alkaline Phosphatase 56 Total Protein 6.1 L Albumin 3.4 L Direct Plt-Bound IgG Ab Hep Bs Antibody Hep B Core Total Ab Hepatitis C Ab Screen HIV 1&2 Ab/P24 Ag 4thGn 06/29/25 06/29/25 06:16 09:55 WBC RBC Hgb Hct MCV MCH MCHC RDW Plt Count MPV % Immature Plt Fraction Sodium Potassium Chloride Carbon Dioxide Anion Gap BUN Creatinine Estim Creat Clear Calc Estimated GFR Glucose POC Capillary Glucose 212 H 213 H Calcium Total Bilirubin AST ALT Alkaline Phosphatase Total Protein Albumin Direct Plt-Bound IgG Ab Hep Bs Antibody Hep B Core Total Ab Hepatitis C Ab Screen HIV 1&2 Ab/P24 Ag 4thGn
[2025-06-29] MEDS: EZETIMIBE 10 MG TABLET PO (11:28)
[2025-06-29] MEDS: LOSARTAN POTASSIUM 25 MG TABLET PO (11:28)
[2025-06-29] MEDS: ATORVASTATIN 40 MG TABLET PO (11:28)
[2025-06-29] MEDS: OMEGA 3 POLYUNSAT FATTY ACIDS 1 GM CAP PO (11:28)
[2025-06-29] MEDS: MULTIVITAMINS THERAPEUTIC TAB (*BKC) 1 TABLET PO (11:28)
[2025-06-29] MEDS: SODIUM CHLORIDE 0.9% IV 1,000 ML 125 ML IV CONT ×2 (11:37→20:26)
--- NOTE | 2025-06-29 12:23 | P.PNIM_ITS ---
Progress Note: A&P Assessment and Plan (1) Closed intertrochanteric fracture of left femur: Qualifiers: Encounter type: initial encounter Fracture alignment: nondisplaced Qualified Code(s): S72.145A - Nondisplaced intertrochanteric fracture of left femur, initial encounter for closed fracture Code(s): S72.142A - Displaced intertrochanteric fracture of left femur, initial encounter for closed fracture Status: Acute Assessment and Plan: -according the patient this was mechanical fall that occurred while using her walker. -orthopedic physician has been consulted and their input was greatly appreciated. -she has been NPO after midnight. -her platelets are low so recheck her CBC this a.m.. -she did have an EKG that was performed that was read as sinus rhythm first- degree AV block left axis deviation anterior septal myocardial infarction indeterminate age. This is comparable to her last EKG in 2023 -continue with pain management. (2) Thrombocytopenia: Code(s): D69.6 - Thrombocytopenia, unspecified Status: Acute Assessment and Plan: -her platelets are 87. This could possibly be from NSAIDs? However her joaquín telets are typically low it looks like her baseline is somewhere around 102-130. -may consider Hematology consult -her H and H is within normal limits I do not believe that she has an active bleed at this time. (3) Hyperlipidemia: Code(s): E78.5 - Hyperlipidemia, unspecified Status: Acute Assessment and Plan: -the patient is NPO at this time so her Zetia and atorvastatin are on hold. (4) DM2 (diabetes mellitus, type 2): Code(s): E11.9 - Type 2 diabetes mellitus without complications Status: Acute Assessment and Plan: -Accu-Cheks every 6 hours with sliding scale insulin -check A1c if not performed in the last 3 months (5) Hypertension: Code(s): I10 - Essential (primary) hypertension Status: Acute Assessment and Plan: -she was given a dose of losartan in the emergency room which brought her blood pressure down slightly. -p.r.n. Hydralazine with parameters Subjective Date/time seen: 06/29/25 12:23 Interval history: No acute events reported night. Patient is mildly confused. Review of Systems Review of Systems: All systems reviewed & are unremarkable except as noted in HPI and below (the history and physical exam.) Constitutional: Constitutional: Reports as per HPI and Reports no additional constitutional complaints Eyes: Eyes: Reports as per HPI and Reports no additional eye complaints ENT: Reports system reviewed and no additional complaints, except as documented and Reports Normal hearing present Cardiovascular: Cardiovascular: Reports no additional cardiovascular complaints Respiratory: Respiratory: Reports as per HPI and Reports no additional respiratory complaints Gastrointestinal: Gastrointestinal: Reports as per HPI and Reports no additional gastrointestinal complaints Genitourinary: Genitourinary: Reports no additional female genitourinary complaints Musculoskeletal: Musculoskeletal: Reports no additional musculoskeletal complaints Integumentary/Breasts: Skin/Breast: Reports system reviewed and no additional complaints, except as docu Neurologic: Reports system reviewed and no additional complaints, except as documented and Reports Normal hearing present Psychiatric: Psychiatric: Reports no additional psychiatric complaints and Reports as per HPI Hematologic/Lymphatic: Hematologic/Lymphatic: Reports no additional hematologic/lymphatic complaints Allergic/Immunologic: Allergic/Immunologic: Reports no additional allergic/immunologic complaints Exam Const: General: cooperative, healthy appearing, comfortable, no acute distress, well developed, awake, Physically active, average body habitus and well nourished Nutritional Appearance: average body habitus and well nourished Orientation/consciousness: oriented to person and oriented to place HENMT: Head: normal to inspection, No palpable skull fracture present, normocephalic, atraumatic and abrasion Ears: hearing grossly normal bilaterally Eyes: General: appearance normal, both eyes and all related structures Alignment and Position: alignment normal Periorbital: periorbital findings normal Eyelids: eyelids normal Sclera: sclerae normal Pupils: Equal, round and reactive pupils present EOM: EOMs intact bilaterally Neck: Neck: normal visual inspection and full ROM Chest: Chest palpation & inspection: normal inspection of the chest Resp: Effort & Inspection: normal respiratory effort Auscultation: clear to auscultation bilaterally Cardio: Palpation: normal PMI Rate: regular rate Rhythm: regular rhythm Heart sounds: S1 normal heart sound present and S2 normal heart sound present Peripheral pulses: Peripheral pulses 2+ throughout GI: Inspection: normal to inspection Auscultation: normal bowel sounds Rectal Exam: deferred Urinary Catheter: Urinary Catheter: patent and draining and urine clear Skin: General skin exam: normal color Lesions: no lesions Rashes: no rashes Trauma: no lacerations or abrasions Wounds: no wounds Hair: normal Nails: normal Neuro: General: oriented to person and oriented to place Cranial nerves: Yes Equal, round and reactive pupils present and Yes Normal hearing present Cognition (Neuro): normal cognition Speech: normal speech Sensory Exam: normal sensation Extrem: General: normal to inspection Right upper extremity: normal to inspection and shoulder/upper arm Left upper extremity: normal to inspection and shoulder/upper arm Right lower extremity: normal to inspection Left lower extremity: hip/thigh Details: tenderness, abnormal ROM and deformity Location: other (Left leg shortened and externally rotated.) Psych: Appearance: grossly normal Mental Status: mental status grossly normal Speech and movement: Normal speech and movement present Affect: normal affect Attitude: cooperative Thought process: Normal thought process present Insight: Fair insight present (Psych) Judgement: Fair judgement present (Psych) Objective Data Vital Signs Vital Signs: Vital Signs - 24 hr 06/28/25 14:00 06/28/25 16:00 06/28/25 20:00 Temperature 97.5 F L 97.8 F 98.2 F Pulse Rate 82 84 86 Respiratory Rate 18 20 20 Blood Pressure 140/50 L 142/54 H 154/69 H Pulse Oximetry 98 100 99 Oxygen Delivery Oxygen Flow Rate 06/28/25 20:00 06/29/25 00:00 06/29/25 04:00 Temperature 98.1 F 97.9 F Pulse Rate 92 91 Respiratory Rate 16 20 Blood Pressure 169/62 H 172/64 H Pulse Oximetry 98 95 Oxygen Delivery Room Air Oxygen Flow Rate 06/29/25 09:01 06/29/25 09:15 06/29/25 09:30 Temperature 97.4 F L Pulse Rate 97 93 94 Respiratory Rate 12 14 16 Blood Pressure 125/65 158/83 H 153/80 H Pulse Oximetry 100 100 100 Oxygen Delivery Simple Face Mask Simple Face Mask Simple Face Mask Oxygen Flow Rate 6 6 6 06/29/25 09:45 06/29/25 10:00 06/29/25 10:17 Temperature 97.8 F Pulse Rate 94 93 92 Respiratory Rate 16 16 16 Blood Pressure 180/60 H 154/74 H 164/62 H Pulse Oximetry 93 95 95 Oxygen Delivery Room Air Room Air Room Air Oxygen Flow Rate 06/29/25 10:51 06/29/25 11:06 06/29/25 11:36 Temperature 97.5 F L 97.7 F 97.5 F L Pulse Rate 91 92 94 Respiratory Rate 20 20 20 Blood Pressure 164/66 H 149/69 H 177/66 H Pulse Oximetry 92 94 94 Oxygen Delivery Oxygen Flow Rate Intake/Output Intake/Output: Intake & Output 06/26/25 06/27/25 06/28/25 06/29/25 23:59 23:59 23:59 23:59 Intake Total 1970 91 Output Total 900 450 Balance 1070 -359 Meds/Results Medications: Active Medications Generic Name Dose Route Start Last Admin Trade Name Freq PRN Reason Stop Dose Admin Acetaminophen 500 mg 06/29/25 09:09 Acetaminophen 500 Mg Tablet PO Q6H PRN Pain Rated 1-3 Hydrocodone Bitart/Acetaminophen 1 tab 06/29/25 09:09 Hydrocodone/Acetaminophen (*Crx) 5-325 Mg Tablet PO Q4H PRN Pain Rated 4-6 Hydrocodone Bitart/Acetaminophen 1 tab 06/29/25 09:09 Hydrocodone/Acetaminophen (*Crx) 10-325 Mg Tablet PO Q4H PRN Pain Rated 7-10 Aspirin 81 mg 06/29/25 21:00 Aspirin 81 Mg Enteric Tablet PO Q12HR CRISTIAN Atorvastatin Calcium 40 mg 06/29/25 09:00 06/29/25 11:28 Atorvastatin 40 Mg Tablet PO 40 mg DAILY C[facility]IAN Administration Dextrose 12.5 gm 06/28/25 05:37 Dextrose 50% 25 Gm/50 Ml Syringe IV PUSH PRN PRN Hypoglycemia Protocol Ezetimibe 10 mg 06/29/25 09:00 06/29/25 11:28 Ezetimibe 10 Mg Tablet PO 10 mg DAILY [facility]IAN Administration Famotidine 20 mg 06/29/25 21:00 Famotidine 20 Mg Tablet PO Q12HR CRISTIAN Fentanyl Citrate 25 mcg 06/29/25 07:38 Fentanyl Citrate Inj (*Crx) 100 Mcg/2 Ml Vial IV PUSH Q2M PRN Pain Fish Oil 1 gm 06/29/25 09:00 06/29/25 11:28 [place] 3 Polyunsat Fatty Acids 1 Gm Cap PO 1 gm DAILY C[facility]STIAN Administration Glucagon 1 mg 06/28/25 05:37 Glucagon For Inj 1 Mg Vial IM PRN PRN Hypoglycemia Protocol Glucose 15 gm 06/28/25 05:37 Glucose Oral Gel 15 Gm Of Glucse In 37.5 Gm Tube PO PRN PRN Hypoglycemia Protocol Hydralazine HCl 10 mg 06/28/25 05:28 06/28/25 05:53 Hydralazine Hcl 20 Mg/Ml Vial IV PUSH 10 mg Q8H PRN Administration Blood Pressure - High Hydromorphone HCl 1 mg 06/28/25 05:29 06/29/25 01:35 Hydromorphone Hcl Inj (*Crx) 1 Mg/Ml Syr IV PUSH 1 mg Q3H PRN Administration Pain Rated 7-10 Hydromorphone HCl 1 mg 06/29/25 09:09 Hydromorphone Hcl Inj (*Crx) 1 Mg/Ml Syr IV PUSH Q2H PRN Breakthrough Pain Rated 7-10 or NPO Hydromorphone HCl 0.5 mg 06/29/25 09:09 Hydromorphone Hcl Inj (*Crx) 1 Mg/Ml Syr IV PUSH Q2H PRN Breakthrough Pain Rated 4-6 or NPO Dextrose 1,000 mls @ 100 mls/hr 06/28/25 05:37 Dextrose 5% 1,000 Ml IVPB PRN PRN Hypoglycemia Protocol Lactated Ringer's 1,000 mls @ 30 mls/hr 06/29/25 07:40 06/29/25 09:22 Lr - Lactated Ringers Iv IV CONT 30 mls/hr .Q24H [facility] Infusion Lactated Ringer's 1,000 mls @ 30 mls/hr 06/29/25 07:40 06/29/25 11:21 Lr - Lactated Ringers Iv IV CONT Not Given .Q24H [facility] Cefazolin Sodium 2 gm/ Sodium 50 mls @ 100 mls/hr 06/29/25 16:00 Chloride IVPB 06/30/25 08:29 Q8H C[facility]IAN Sodium Chloride 1,000 mls @ 125 mls/hr 06/29/25 09:10 06/29/25 11:37 Normal Saline Iv IV CONT 125 mls/hr .Q8H [facility] Administration Ibuprofen 800 mg in 200 mls @ 400 mls/hr 06/29/25 09:09 Caldolor 800 Mg/200 Ml IVPB Q6H PRN Breakthrough Pain Rated 1-3 or NPO Insulin Aspart 2 - 5 units 06/28/25 06:00 06/29/25 06:36 Insulin Aspart (*Bkc) 100 Units/Ml SUB-Q 2 units Q6HR CRISTIAN Administration Protocol Losartan Potassium 25 mg 06/29/25 09:00 06/29/25 11:28 Losartan Potassium 25 Mg Tablet PO 25 mg DAILY [facility] Administration Miscellaneous Information 1 each 06/29/25 00:01 Hydromorphone Is Duplicate Prn With Morphine For Breakthrough Pain 4-6 Or Npo. Please Cla XX 07/29/25 00:00 CLARIFY [facility] Morphine Sulfate 2 mg 06/29/25 09:09 Morphine Sulfate (*Crx) 2 Mg/Ml Inj IV PUSH Q2H PRN Breakthrough Pain Rated 4-6 or NPO Multivitamins Therapeutic 1 tablet 06/29/25 09:00 06/29/25 11:28 Multivitamins Therapeutic Tab (*Bkc) PO 1 tablet DAILY [facility] Administration Naloxone HCl 0.1 mg 06/29/25 09:09 Naloxone Hcl 0.4 Mg/Ml Vial IV PUSH Q2M PRN Opiate Reversal Ondansetron HCl 4 mg 06/29/25 07:38 Ondansetron Inj 4 Mg/2 Ml Vial IV PUSH ONCE PRN Nausea Ondansetron HCl 4 mg 06/29/25 09:09 Ondansetron Inj 4 Mg/2 Ml Vial IV PUSH Q4H PRN Nausea And Vomiting Polyethylene Glycol 17 gm 06/30/25 09:00 Polyethylene Glycol 3350 17 Gm Powd.Pack PO QAM [facility] Senna/Docusate Sodium 2 tab 06/29/25 17:00 Senna/Docusate Sodium Tablet PO BID [facility] Radiology Results: ITS Impressions Chest X-Ray 06/28/25 07:50 IMPRESSION: 1. Mild lingular atelectasis/scarring at the costophrenic angle. No other acute cardiopulmonary disease. Hip/Pelvis X-Ray 06/28/25 07:53 IMPRESSION: 1. 15 degrees varus attenuation: Intertrochanteric fracture the proximal left femur. Cervical Spine CT 06/28/25 08:23 IMPRESSION: HEAD: 1. No acute intracranial findings. 2. Scattered bilateral hyperdense lesions as before, not significantly changed. C-SPINE: 1. No acute fracture. Head CT 06/28/25 08:23 IMPRESSION: HEAD: 1. No acute intracranial findings. 2. Scattered bilateral hyperdense lesions as before, not significantly changed. C-SPINE: 1. No acute fracture. Abdomen/Pelvis CT 06/28/25 13:52 IMPRESSION: 1. Cystic masses of the pancreas, largest measuring 2.2 cm. The differential diagnosis includes pseudocyst, intraductal papillary mucinous neoplasm (IPMN), mucinous cystic neoplasm (MCN), and the less common serous cystadenoma and neuroendocrine tumor. 2: Cholelithiasis with mild gallbladder wall enhancement. No biliary dilatation or cholecystic fluid. 3: Hypovascular lesions of the liver, most likely benign hemangiomas, largest measuring 2.8 cm. 4: Acute left femoral intertrochanteric fracture with varus angulation. Labs Labs: Laboratory Results - last 24 hr 06/28/25 06/28/25 06/28/25 11:08 11:11 16:38 WBC RBC Hgb Hct MCV MCH MCHC RDW Plt Count MPV % Immature Plt Fraction Sodium Potassium Chloride Carbon Dioxide Anion Gap BUN Creatinine Estim Creat Clear Calc Estimated GFR Glucose POC Capillary Glucose 142 H Calcium Total Bilirubin AST ALT Alkaline Phosphatase Total Protein Albumin Hep Bs Antibody Negative Hep B Core Total Ab Negative Hepatitis C Ab Screen Negative 06/28/25 06/29/25 06/29/25 23:08 05:29 06:16 WBC 7.2 RBC 3.70 L Hgb 11.6 L Hct 34.6 L MCV 93.5 MCH 31.4 MCHC 33.5 RDW 14.0 Plt Count 84 L MPV 11.0 H % Immature Plt Fraction 4.9 Sodium 132 L Potassium 3.7 Chloride 105 Carbon Dioxide 21 L Anion Gap 6 BUN 15 Creatinine 0.61 L Estim Creat Clear Calc 54 Estimated GFR > 60 Glucose 207 H POC Capillary Glucose 228 H 212 H Calcium 9.6 Total Bilirubin 1.2 AST 21 ALT 16 Alkaline Phosphatase 56 Total Protein 6.1 L Albumin 3.4 L Hep Bs Antibody Hep B Core Total Ab Hepatitis C Ab Screen 06/29/25 09:55 WBC RBC Hgb Hct MCV MCH MCHC RDW Plt Count MPV % Immature Plt Fraction Sodium Potassium Chloride Carbon Dioxide Anion Gap BUN Creatinine Estim Creat Clear Calc Estimated GFR Glucose POC Capillary Glucose 213 H Calcium Total Bilirubin AST ALT Alkaline Phosphatase Total Protein Albumin Hep Bs Antibody Hep B Core Total Ab Hepatitis C Ab Screen Hospitalist MIPS Advance Care Plan I have confirmed that the patient's Advanced Care Plan is present, code status is documented, or surrogate decision maker is listed in patient medical record.: Yes Medication Reconciliation I have utilized all available resources to obtain, update and review the patients current medications (includes all prescriptions, OTC, herbals, cannabis, and nutritional supplements).: Yes
[2025-06-29 12:32] LABS: Immature Platelet Fraction Pct 5.3 % (0.9-11.2); Platelet Count Result 79 k/mm3 (150-375)
[2025-06-29] MEDS: SENNA/DOCUSATE SODIUM TABLET 2 TAB PO (16:36)
[2025-06-29] MEDS: HYDROcodone/acetaminophen (*CRX) 5-325 MG TABLET 1 TAB PO (18:03)
[2025-06-29] MEDS: FAMOTIDINE 20 MG TABLET PO (20:26)
[2025-06-29] MEDS: ASPIRIN 81 MG ENTERIC TABLET PO (20:26)
[2025-06-30] VITALS: BP 142/62; PULSE 95; RESP 20; TEMP 36.8; O2SAT 98
[2025-06-30 04:00] VITALS: BP 129/53; PULSE 98; RESP 20; TEMP 36.8; O2SAT 94
[2025-06-30 06:35] LABS: Hematocrit 30.5 % (37.0-47.0); Hemoglobin 10.0 g/dL (12.0-15.0); Immature Granulocyte Percent A 0.5 % (0-0.5); Immature Platelet Fraction Pct 5.1 % (0.9-11.2); Lymphocytes Absolute Auto 0.92 K/mm3 (0.9-3.2); Mean Corpuscular HGB Conc 32.8 g/dl (32-36); Mean Corpuscular Hemoglobin 31.2 pg (26-34); Mean Corpuscular Volume 95.0 fl (80-100); Nucleated Red Blood Cells Absolute Auto 0.000 K/mm3 (0.0-0.012); Nucleated Red Blood Cells Perc 0.0 % (0.0-0.2); Platelet Count Result 68 k/mm3 (150-375); Red Blood Count 3.21 M/mm3 (4.2-5.4); White Blood Count 6.4 K/mm3 (4.5-10.0)
[2025-06-30 06:55] LABS: Alanine Aminotransferase 12 U/L (6-35); Albumin Level 2.8 g/dL (3.5-5.1); Alkaline Phosphatase 49 U/L (38-126); Anion Gap 5 mmol/L (4-12); Aspartate Amino Transferase 22 U/L (14-36); Bilirubin,Total 1.1 mg/dL (0.2-1.3); Blood Urea Nitrogen 17 mg/dL (7-17); Calcium 8.9 mg/dL (8.4-10.2); Carbon Dioxide 23 mmol/L (22-30); Chloride 105 mmol/L (98-107); Estimated CRCL calculation 45 ml/min; Estimated Glomerular Filt Rate > 60; Glucose 160 mg/dL (65-110); Potassium 4.0 mmol/L (3.4-5.0); Sodium 133 mmol/L (137-145); Total Protein 5.3 g/dL (6.3-8.2)
[2025-06-30] MEDS: LOSARTAN POTASSIUM 25 MG TABLET PO (08:54)
[2025-06-30] MEDS: OMEGA 3 POLYUNSAT FATTY ACIDS 1 GM CAP PO (08:54)
[2025-06-30] MEDS: FAMOTIDINE 20 MG TABLET PO ×2 (08:54→20:34)
[2025-06-30] MEDS: ceFAZolin 2 GM in SODIUM CHLORIDE 0.9% IV 50 ML 100 ML IVPB (08:54)
[2025-06-30] MEDS: HYDROcodone/acetaminophen (*CRX) 10-325 MG TABLET 1 TAB PO ×2 (08:55→21:04)
[2025-06-30] MEDS: SENNA/DOCUSATE SODIUM TABLET 2 TAB PO ×2 (08:55→17:24)
[2025-06-30] MEDS: MULTIVITAMINS THERAPEUTIC TAB (*BKC) 1 TABLET PO (08:56)
[2025-06-30] MEDS: ASPIRIN 81 MG ENTERIC TABLET PO ×2 (08:56→20:34)
[2025-06-30] MEDS: ATORVASTATIN 40 MG TABLET PO (08:56)
[2025-06-30] MEDS: EZETIMIBE 10 MG TABLET PO (08:56)
--- NOTE | 2025-06-30 09:22 | P.PNIM_ITS ---
Progress Note: A&P Assessment and Plan (1) Closed intertrochanteric fracture of left femur: Qualifiers: Encounter type: initial encounter Fracture alignment: nondisplaced Qualified Code(s): S72.145A - Nondisplaced intertrochanteric fracture of left femur, initial encounter for closed fracture Code(s): S72.142A - Displaced intertrochanteric fracture of left femur, initial encounter for closed fracture Status: Acute Assessment and Plan: -according the patient this was mechanical fall that occurred while using her walker. -orthopedic physician has been consulted and patient underwent left IT nail on 06/29 -her platelets are low which is a chronic issue -she did have an EKG that was performed that was read as sinus rhythm first- degree AV block left axis deviation anterior septal myocardial infarction indeterminate age. This is comparable to her last EKG in 2023 -continue with pain management. (2) Thrombocytopenia: Code(s): D69.6 - Thrombocytopenia, unspecified Status: Acute Assessment and Plan: -her platelets are 87. This could possibly be from NSAIDs? However her platelets are typically low it looks like her baseline is somewhere around 102- 130. -may consider Hematology consult -her H and H is within normal limits -hematology following for chronic thrombocytopenia -needs to follow-up with patient safety sitter in 4-6 week upon discharge (3) Hyperlipidemia: Code(s): E78.5 - Hyperlipidemia, unspecified Status: Acute Assessment and Plan: -continue Zetia and atorvastatin are on hold. (4) DM2 (diabetes mellitus, type 2): Code(s): E11.9 - Type 2 diabetes mellitus without complications Status: Acute Assessment and Plan: -Accu-Cheks every 6 hours with sliding scale insulin -check A1c if not performed in the last 3 months (5) Hypertension: Code(s): I10 - Essential (primary) hypertension Status: Acute Assessment and Plan: -she was given a dose of losartan in the emergency room which brought her blood pressure down slightly. -p.r.n. Hydralazine with parameters Subjective Date/time seen: 06/30/25 09:22 Interval history: Patient was evaluated along with her family members and daughter. Patient is currently aspirin due to recent orthopedic intervention. As per daughter Patient has a remote history of intracerebral bleed and agrees to continue aspirin for now. Discussed with the patient safety sitter. Who reports that her t hrombocytopenia is a chronic condition. Review of Systems Review of Systems: All systems reviewed & are unremarkable except as noted in HPI and below (the history and physical exam.) Constitutional: Constitutional: Reports as per HPI and Reports no additional constitutional complaints Eyes: Eyes: Reports as per HPI and Reports no additional eye complaints ENT: Reports system reviewed and no additional complaints, except as documented and Reports Normal hearing present Cardiovascular: Cardiovascular: Reports no additional cardiovascular complaints Respiratory: Respiratory: Reports as per HPI and Reports no additional respiratory complaints Gastrointestinal: Gastrointestinal: Reports as per HPI and Reports no additional gastrointestinal complaints Genitourinary: Genitourinary: Reports no additional female genitourinary complaints Musculoskeletal: Musculoskeletal: Reports no additional musculoskeletal complaints Integumentary/Breasts: Skin/Breast: Reports system reviewed and no additional complaints, except as docu Neurologic: Reports system reviewed and no additional complaints, except as documented and Reports Normal hearing present Psychiatric: Psychiatric: Reports no additional psychiatric complaints and Reports as per HPI Hematologic/Lymphatic: Hematologic/Lymphatic: Reports no additional hematolo gic/lymphatic complaints Allergic/Immunologic: Allergic/Immunologic: Reports no additional allergic/immunologic complaints Exam Const: General: cooperative, healthy appearing, comfortable, no acute distress, well developed, awake, Physically active, average body habitus and well nourished Nutritional Appearance: average body habitus and well nourished Orientation/consciousness: oriented to person and oriented to place HENMT: Head: normal to inspection, No palpable skull fracture present, normocephalic, atraumatic and abrasion Ears: hearing grossly normal bilaterally Eyes: General: appearance normal, both eyes and all related structures Ali gnment and Position: alignment normal Periorbital: periorbital findings normal Eyelids: eyelids normal Sclera: sclerae normal Pupils: Equal, round and reactive pupils present EOM: EOMs intact bilaterally Neck: Neck: normal visual inspection and full ROM Chest: Chest palpation & inspection: normal inspection of the chest Resp: Effort & Inspection: normal respiratory effort Auscultation: clear to auscultation bilaterally Cardio: Palpation: normal PMI Rate: regular rate Rhythm: regular rhythm Heart sounds: S1 normal heart sound present and S2 normal heart sound present Peripheral pulses: Peripheral pulses 2+ throughout GI: Inspection: normal to inspection Auscultation: normal bowel sounds Rectal Exam: deferred Urinary Catheter: Urinary Catheter: patent and draining and urine clear Skin: General skin exam: normal color Lesions: no lesions Rashes: no rashes Trauma: no lacerations or abrasions Wounds: no wounds Hair: normal Nails: normal Neuro: General: oriented to person and oriented to place Cranial nerves: Yes Equal, round and reactive pupils present and Yes Normal hearing present Cognition (Neuro): normal cognition Speech: normal speech Sensory Exam: normal sensation Extrem: General: normal to inspection Right upper extremity: normal to inspection and shoulder/upper arm Left upper extremity: normal to inspection and shoulder/upper arm Right lower extremity: normal to inspection Left lower extremity: hip/thigh Details: tenderness, abnormal ROM and deformity Location: other (Left leg shortened and externally rotated.) Psych: Appearance: grossly normal Mental Status: mental status grossly normal Speech and movement: Normal speech and movement present Affect: normal affect Attitude: cooperative Thought process: Normal thought process present Insight: Fair insight present (Psych) Judgement: Fair judgement present (Psych) Objective Data Vital Signs Vital Signs: Vital Signs - 24 hr 06/29/25 09:30 06/29/25 09:45 06/29/25 10:00 Temperature 97.8 F Pulse Rate 94 94 93 Respiratory Rate 16 16 16 Blood Pressure 153/80 H 180/60 H 154/74 H Pulse Oximetry 100 93 95 Oxygen Delivery Simple Face Mask Room Air Room Air Oxygen Flow Rate 6 06/29/25 10:17 06/29/25 10:51 06/29/25 11:06 Temperature 97.5 F L 97.7 F Pulse Rate 92 91 92 Respiratory Rate 16 20 20 Blood Pressure 164/62 H 164/66 H 149/69 H Pulse Oximetry 95 92 94 Oxygen Delivery Room Air Oxygen Flow Rate 06/29/25 11:36 06/29/25 12:35 06/29/25 12:36 Temperature 97.5 F L 98.1 F Pulse Rate 94 93 Respiratory Rate 20 20 Blood Pressure 177/66 H 164/72 H Pulse Oximetry 94 95 Oxygen Delivery Room Air Oxygen Flow Rate 06/29/25 12:46 06/29/25 17:08 06/29/25 20:00 Temperature 97.8 F Pulse Rate 96 Respiratory Rate 20 Blood Pressure 143/54 H Pulse Oximetry 97 Oxygen Delivery Room Air Room Air Oxygen Flow Rate 06/29/25 22:06 06/30/25 00:00 06/30/25 04:00 Temperature 98.1 F 98.3 F 98.2 F Pulse Rate 104 H 95 98 Respiratory Rate 16 20 20 Blood Pressure 137/49 L 142/62 H 129/53 L Pulse Oximetry 92 98 94 Oxygen Delivery Oxygen Flow Rate Intake/Output Intake/Output: Intake & Output 06/27/25 06/28/25 06/29/25 06/30/25 23:59 23:59 23:59 23:59 Intake Total 1970 1831 200 Output Total 900 850 550 Balance 1070 981 -350 Meds/Results Medications: Active Medications Generic Name Dose Route Start Last Admin Trade Name Freq PRN Reason Stop Dose Admin Acetaminophen 500 mg 06/29/25 09:09 Acetaminophen 500 Mg Tablet PO Q6H PRN Pain Rated 1-3 Hydrocodone Bitart/Acetaminophen 1 tab 06/29/25 09:09 06/29/25 18:03 Hydrocodone/Acetaminophen (*Crx) 5-325 Mg Tablet PO 1 tab Q4H PRN Administration Pain Rated 4-6 Hydrocodone Bitart/Acetaminophen 1 tab 06/29/25 09:09 06/30/25 08:55 Hydrocodone/Acetaminophen (*Crx) 10-325 Mg Tablet PO 1 tab Q4H PRN Administration Pain Rated 7-10 Aspirin 81 mg 06/29/25 21:00 06/30/25 08:56 Aspirin 81 Mg Enteric Tablet PO 81 mg Q12HR CRISTIAN Administration Atorvastatin Calcium 40 mg 06/29/25 09:00 06/30/25 08:56 Atorvastatin 40 Mg Tablet PO 40 mg DAILY CRISTIAN Administration Dextrose 12.5 gm 06/28/25 05:37 Dextrose 50% 25 Gm/50 Ml Syringe IV PUSH PRN PRN Hypoglycemia Protocol Ezetimibe 10 mg 06/29/25 09:00 06/30/25 08:56 Ezetimibe 10 Mg Tablet PO 10 mg DAILY CRISTIAN Administration Famotidine 20 mg 06/29/25 21:00 06/30/25 08:54 Famotidine 20 Mg Tablet PO 20 mg Q12HR CRISTIAN Administration Fentanyl Citrate 25 mcg 06/29/25 07:38 Fentanyl Citrate Inj (*Crx) 100 Mcg/2 Ml Vial IV PUSH Q2M PRN Pain Fish Oil 1 gm 06/29/25 09:00 06/30/25 08:54 [place] 3 Polyunsat Fatty Acids 1 Gm Cap PO 1 gm DAILY CRISTIAN Administration Glucagon 1 mg 06/28/25 05:37 Glucagon For Inj 1 Mg Vial IM PRN PRN Hypoglycemia Protocol Glucose 15 gm 06/28/25 05:37 Glucose Oral Gel 15 Gm Of Glucse In 37.5 Gm Tube PO PRN PRN Hypoglycemia Protocol Hydralazine HCl 10 mg 06/28/25 05:28 06/28/25 05:53 Hydralazine Hcl 20 Mg/Ml Vial IV PUSH 10 mg Q8H PRN Administration Blood Pressure - High Hydromorphone HCl 1 mg 06/28/25 05:29 06/29/25 18:54 Hydromorphone Hcl Inj (*Crx) 1 Mg/Ml Syr IV PUSH 1 mg Q3H PRN Administration Pain Rated 7-10 Hydromorphone HCl 1 mg 06/29/25 09:09 Hydromorphone Hcl Inj (*Crx) 1 Mg/Ml Syr IV PUSH Q2H PRN Breakthrough Pain Rated 7-10 or NPO Dextrose 1,000 mls @ 100 mls/hr 06/28/25 05:37 Dextrose 5% 1,000 Ml IVPB PRN PRN Hypoglycemia Protocol Lactated Ringer's 1,000 mls @ 30 mls/hr 06/29/25 07:40 06/29/25 09:22 Lr - Lactated Ringers Iv IV CONT 30 mls/hr .Q24H CRISTIAN Infusion Lactated Ringer's 1,000 mls @ 30 mls/hr 06/29/25 07:40 06/29/25 11:21 Lr - Lactated Ringers Iv IV CONT Not Given .Q24H CRISTIAN Ibuprofen 800 mg in 200 mls @ 400 mls/hr 06/29/25 09:09 Caldolor 800 Mg/200 Ml IVPB Q6H PRN Breakthrough Pain Rated 1-3 or NPO Insulin Aspart 2 - 5 units 06/29/25 16:50 06/30/25 08:57 Insulin Aspart (*Bkc) 100 Units/Ml SUB-Q Not Given ACHS [facility] Protocol Losartan Potassium 25 mg 06/29/25 09:00 06/30/25 08:54 Losartan Potassium 25 Mg Tablet PO 25 mg DAILY CRISTIAN Administration Morphine Sulfate 2 mg 06/29/25 09:09 Morphine Sulfate (*Crx) 2 Mg/Ml Inj IV PUSH Q2H PRN Breakthrough Pain Rated 4-6 or NPO Multivitamins Therapeutic 1 tablet 06/29/25 09:00 06/30/25 08:56 Multivitamins Therapeutic Tab (*Bkc) PO 1 tablet DAILY CRISTIAN Administration Naloxone HCl 0.1 mg 06/29/25 09:09 Naloxone Hcl 0.4 Mg/Ml Vial IV PUSH Q2M PRN Opiate Reversal Ondansetron HCl 4 mg 06/29/25 07:38 Ondansetron Inj 4 Mg/2 Ml Vial IV PUSH ONCE PRN Nausea Ondansetron HCl 4 mg 06/29/25 09:09 Ondansetron Inj 4 Mg/2 Ml Vial IV PUSH Q4H PRN Nausea And Vomiting Polyethylene Glycol 17 gm 06/30/25 09:00 06/30/25 08:56 Polyethylene Glycol 3350 17 Gm Powd.Pack PO 17 gm QAM CRISTIAN Administration Senna/Docusate Sodium 2 tab 06/29/25 17:00 06/30/25 08:55 Senna/Docusate Sodium Tablet PO 2 tab BID CRISTIAN Administration Radiology Results: ITS Impressions Chest X-Ray 06/28/25 07:50 IMPRESSION: 1. Mild lingular atelectasis/scarring at the costophrenic angle. No other acute cardiopulmonary disease. Hip/Pelvis X-Ray 06/28/25 07:53 IMPRESSION: 1. 15 degrees varus attenuation: Intertrochanteric fracture the proximal left femur. Cervical Spine CT 06/28/25 08:23 IMPRESSION: HEAD: 1. No acute intracranial findings. 2. Scattered bilateral hyperdense lesions as before, not significantly changed. C-SPINE: 1. No acute fracture. Head CT 06/28/25 08:23 IMPRESSION: HEAD: 1. No acute intracranial findings. 2. Scattered bilateral hyperdense lesions as before, not significantly changed. C-SPINE: 1. No acute fracture. Abdomen/Pelvis CT 06/28/25 13:52 IMPRESSION: 1. Cystic masses of the pancreas, largest measuring 2.2 cm. The differential diagnosis includes pseudocyst, intraductal papillary mucinous neoplasm (IPMN), mucinous cystic neoplasm (MCN), and the less common serous cystadenoma and neuroendocrine tumor. 2: Cholelithiasis with mild gallbladder wall enhancement. No biliary dilatation or cholecystic fluid. 3: Hypovascular lesions of the liver, most likely benign hemangiomas, largest measuring 2.8 cm. 4: Acute left femoral intertrochanteric fracture with varus angulation. Labs Labs: Laboratory Results - last 24 hr 06/29/25 06/29/25 06/29/25 09:55 12:15 12:19 WBC RBC Hgb Hct MCV MCH MCHC RDW Plt Count 79 L MPV 11.0 H Immature Gran % (Auto) Neut % (Auto) Lymph % (Auto) Moca % (Auto) Eos % (Auto) Baso % (Auto) Lymph # (Auto) Moca # (Auto) Eos # (Auto) Baso # (Auto) Abs Immat Gran (auto) Absolute Neuts (auto) Absolute Nucleated RBC Nucleated RBC % % Immature Plt Fraction 5.3 Sodium Potassium Chloride Carbon Dioxide Anion Gap BUN Creatinine Estim Creat Clear Calc Estimated GFR Glucose POC Capillary Glucose 213 H 208 H Calcium Total Bilirubin AST ALT Alkaline Phosphatase Total Protein Albumin 06/29/25 06/29/25 06/30/25 16:48 22:21 05:35 WBC 6.4 RBC 3.21 L Hgb 10.0 L Hct 30.5 L MCV 95.0 MCH 31.2 MCHC 32.8 RDW 13.9 Plt Count 68 L MPV 11.7 H Immature Gran % (Auto) 0.5 Neut % (Auto) 73.4 H Lymph % (Auto) 14.5 L Moca % (Auto) 9.0 H Eos % (Auto) 2.4 Baso % (Auto) 0.2 Lymph # (Auto) 0.92 Moca # (Auto) 0.6 Eos # (Auto) 0.2 Baso # (Auto) 0.0 Abs Immat Gran (auto) 0.03 Absolute Neuts (auto) 4.7 Absolute Nucleated RBC 0.000 Nucleated RBC % 0.0 % Immature Plt Fraction 5.1 Sodium 133 L Potassium 4.0 Chloride 105 Carbon Dioxide 23 Anion Gap 5 BUN 17 Creatinine 0.75 Estim Creat Clear Calc 45 Estimated GFR > 60 Glucose 160 H POC Capillary Glucose 309 H 213 H Calcium 8.9 Total Bilirubin 1.1 AST 22 ALT 12 Alkaline Phosphatase 49 Total Protein 5.3 L Albumin 2.8 L 06/30/25 08:07 WBC RBC Hgb Hct MCV MCH MCHC RDW Plt Count MPV Immature Gran % (Auto) Neut % (Auto) Lymph % (Auto) Moca % (Auto) Eos % (Auto) Baso % (Auto) Lymph # (Auto) Moca # (Auto) Eos # (Auto) Baso # (Auto) Abs Immat Gran (auto) Absolute Neuts (auto) Absolute Nucleated RBC Nucleated RBC % % Immature Plt Fraction Sodium Potassium Chloride Carbon Dioxide Anion Gap BUN Creatinine Estim Creat Clear Calc Estimated GFR Glucose POC Capillary Glucose 177 H Calcium Total Bilirubin AST ALT Alkaline Phosphatase Total Protein Albumin Hospitalist MIPS Advance Care Plan I have confirmed that the patient's Advanced Care Plan is present, code status is documented, or surrogate decision maker is listed in patient medical record.: Yes Medication Reconciliation I have utilized all available resources to obtain, update and review the patients current medications (includes all prescriptions, OTC, herbals, cannabis, and nutritional supplements).: Yes
--- NOTE | 2025-06-30 10:05 | P.PNONC_ITS ---
Progress Note: A&P Assessment and Plan (1) Thrombocytopenia: Code(s): D69.6 - Thrombocytopenia, unspecified Status: Acute Assessment and Plan: CHRONIC THROMBOCYTOPENIA Patient with hx of chronic thrombocytopenia with platelets 102K on 07/13/21, 130K on 04/10/22, 105K on 07/12/24. This admission platelets 87K on 06/27/25 and 80K today 06/28/25. We don't have any labs between 07/12/24 and now 06/27/25 admission. Creatinine is normal. Patient sees a stemhole borer at [facility] and was told that this is likely her baseline. 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 Liver enzymes normal, albumin normal. CT scan of abd/pelvis to rule out hepatosplenomegaly was performed 06/28/25. No hepatosplenomegaly but there were incidental finding of liver hemangiomas and pancreatic cystic masses. I have ordered viral work up including Hep B, C, HIV. ordered AMRITA. Viral work up is negative. Also ordered platelet antibodies which take few weeks to result and are pending Patient underwent orthopedic surgery this morning. Platelets were 68K. No need for platelet transfusion if no surgical site bleeding. Monitor for excess bleeding and transfuse platelets if needed. Patient should see her stemhole borer 4-6 weeks post discharge for repeat CBC and thrombocytopenia monitoring. Hematology will sign off. (2) Pancreatic cyst: Code(s): K86.2 - Cyst of pancreas Status: Acute Assessment and Plan: Incidental finding of cystic masses of the pancreas, largest measuring 2.2 cm. The differential diagnosis included pseudocyst, intraductal papillary mucinous neoplasm (IPMN), mucinous cystic neoplasm (MCN), and the less common serous cystadenoma and neuroendocrine tumor. I discussed the finding of pancreatic cyst to patient, her daughter and son present in room on 06/28/25. RE Recommend GI consult for further management as outpatient. Patient and family was notified to seek GI referral as outpatient by PCP. Subjective Date/time seen: 06/30/25 10:05 Interval history: patient doing well post surgery POD #1. Martines is out and urinating on her own. No BM yet since surgery Review of Systems Review of Systems Patient underwent Left hip fracture surgery this morning and doing well. No increased pain. Denies fever, chills, night sweats. No significant weight loss. No chest pain, dyspnea, cough or hemoptysis. No abdominal pain. No hematochezia or melena. no hematuria or dysuria. No pruritus. Per family she has very poor balance and has been falling at home. She has seen a neurologist and also undergone physical therapy in the past. No lymphadenopathy. Exam Narrative: General: Alert and oriented x3, no acute distress HEENT: EOMI, PERRL, no lymphadenopathy CV: RRR, No m/g/r RESP: Clear to auscultation bilaterally ABD: soft, NT, ND, BS+ EXT: pain in left hip with palpation NEURO: No focal deficits SKIN: no rash or open wounds Objective Data Vital Signs Vital Signs: Vital Signs - 24 hr 06/29/25 10:17 06/29/25 10:51 06/29/25 11:06 Temperature 36.4 C L 36.5 C Pulse Rate 92 91 92 Respiratory Rate 16 20 20 Blood Pressure 164/62 H 164/66 H 149/69 H Pulse Oximetry 95 92 94 Oxygen Delivery Room Air 06/29/25 11:36 06/29/25 12:35 06/29/25 12:36 Temperature 36.4 C L 36.7 C Pulse Rate 94 93 Respiratory Rate 20 20 Blood Pressure 177/66 H 164/72 H Pulse Oximetry 94 95 Oxygen Delivery Room Air 06/29/25 12:46 06/29/25 17:08 06/29/25 20:00 Temperature 36.6 C Pulse Rate 96 Respiratory Rate 20 Blood Pressure 143/54 H Pulse Oximetry 97 Oxygen Delivery Room Air Room Air 06/29/25 22:06 06/30/25 00:00 06/30/25 04:00 Temperature 36.7 C 36.8 C 36.8 C Pulse Rate 104 H 95 98 Respiratory Rate 16 20 20 Blood Pressure 137/49 L 142/62 H 129/53 L Pulse Oximetry 92 98 94 Oxygen Delivery Intake/Output Intake/Output: Intake & Output 06/27/25 06/28/25 06/29/25 06/30/25 23:59 23:59 23:59 23:59 Intake Total 1970 1831 560 Output Total 900 850 550 Balance 1070 981 10 Meds/Results Medications: Active Medications Generic Name Dose Route Start Last Admin Trade Name Freq PRN Reason Stop Dose Admin Acetaminophen 500 mg 06/29/25 09:09 Acetaminophen 500 Mg Tablet PO Q6H PRN Pain Rated 1-3 Hydrocodone Bitart/Acetaminophen 1 tab 06/29/25 09:09 06/29/25 18:03 Hydrocodone/Acetaminophen (*Crx) 5-325 Mg Tablet PO 1 tab Q4H PRN Administration Pain Rated 4-6 Hydrocodone Bitart/Acetaminophen 1 tab 06/29/25 09:09 06/30/25 08:55 Hydrocodone/Acetaminophen (*Crx) 10-325 Mg Tablet PO 1 tab Q4H PRN Administration Pain Rated 7-10 Aspirin 81 mg 06/29/25 21:00 06/30/25 08:56 Aspirin 81 Mg Enteric Tablet PO 81 mg Q12HR CRISTIAN Administration Atorvastatin Calcium 40 mg 06/29/25 09:00 06/30/25 08:56 Atorvastatin 40 Mg Tablet PO 40 mg DAILY CRISTIAN Administration Dextrose 12.5 gm 06/28/25 05:37 Dextrose 50% 25 Gm/50 Ml Syringe IV PUSH PRN PRN Hypoglycemia Protocol Ezetimibe 10 mg 06/29/25 09:00 06/30/25 08:56 Ezetimibe 10 Mg Tablet PO 10 mg DAILY CRISTIAN Administration Famotidine 20 mg 06/29/25 21:00 06/30/25 08:54 Famotidine 20 Mg Tablet PO 20 mg Q12HR CRISTIAN Administration Fentanyl Citrate 25 mcg 06/29/25 07:38 Fentanyl Citrate Inj (*Crx) 100 Mcg/2 Ml Vial IV PUSH Q2M PRN Pain Fish Oil 1 gm 06/29/25 09:00 06/30/25 08:54 [place] 3 Polyunsat Fatty Acids 1 Gm Cap PO 1 gm DAILY CRISTIAN Administration Glucagon 1 mg 06/28/25 05:37 Glucagon For Inj 1 Mg Vial IM PRN PRN Hypoglycemia Protocol Glucose 15 gm 06/28/25 05:37 Glucose Oral Gel 15 Gm Of Glucse In 37.5 Gm Tube PO PRN PRN Hypoglycemia Protocol Hydralazine HCl 10 mg 06/28/25 05:28 06/28/25 05:53 Hydralazine Hcl 20 Mg/Ml Vial IV PUSH 10 mg Q8H PRN Administration Blood Pressure - High Hydromorphone HCl 1 mg 06/28/25 05:29 06/29/25 18:54 Hydromorphone Hcl Inj (*Crx) 1 Mg/Ml Syr IV PUSH 1 mg Q3H PRN Administration Pain Rated 7-10 Hydromorphone HCl 1 mg 06/29/25 09:09 Hydromorphone Hcl Inj (*Crx) 1 Mg/Ml Syr IV PUSH Q2H PRN Breakthrough Pain Rated 7-10 or NPO Dextrose 1,000 mls @ 100 mls/hr 06/28/25 05:37 Dextrose 5% 1,000 Ml IVPB PRN PRN Hypoglycemia Protocol Lactated Ringer's 1,000 mls @ 30 mls/hr 06/29/25 07:40 06/29/25 09:22 Lr - Lactated Ringers Iv IV CONT 30 mls/hr .Q24H CRISTIAN Infusion Lactated Ringer's 1,000 mls @ 30 mls/hr 06/29/25 07:40 06/29/25 11:21 Lr - Lactated Ringers Iv IV CONT Not Given .Q24H CRISTIAN Ibuprofen 800 mg in 200 mls @ 400 mls/hr 06/29/25 09:09 Caldolor 800 Mg/200 Ml IVPB Q6H PRN Breakthrough Pain Rated 1-3 or NPO Insulin Aspart 2 - 5 units 06/29/25 16:50 06/30/25 08:57 Insulin Aspart (*Bkc) 100 Units/Ml SUB-Q Not Given ACHS [facility] Protocol Losartan Potassium 25 mg 06/29/25 09:00 06/30/25 08:54 Losartan Potassium 25 Mg Tablet PO 25 mg DAILY CRISTIAN Administration Morphine Sulfate 2 mg 06/29/25 09:09 Morphine Sulfate (*Crx) 2 Mg/Ml Inj IV PUSH Q2H PRN Breakthrough Pain Rated 4-6 or NPO Multivitamins Therapeutic 1 tablet 06/29/25 09:00 06/30/25 08:56 Multivitamins Therapeutic Tab (*Bkc) PO 1 tablet DAILY CRISTIAN Administration Naloxone HCl 0.1 mg 06/29/25 09:09 Naloxone Hcl 0.4 Mg/Ml Vial IV PUSH Q2M PRN Opiate Reversal Ondansetron HCl 4 mg 06/29/25 07:38 Ondansetron Inj 4 Mg/2 Ml Vial IV PUSH ONCE PRN Nausea Ondansetron HCl 4 mg 06/29/25 09:09 Ondansetron Inj 4 Mg/2 Ml Vial IV PUSH Q4H PRN Nausea And Vomiting Polyethylene Glycol 17 gm 06/30/25 09:00 06/30/25 08:56 Polyethylene Glycol 3350 17 Gm Powd.Pack PO 17 gm QAM CRISTIAN Administration Senna/Docusate Sodium 2 tab 06/29/25 17:00 06/30/25 08:55 Senna/Docusate Sodium Tablet PO 2 tab BID CRISTIAN Administration Radiology Results: ITS Impressions Chest X-Ray 06/28/25 07:50 IMPRESSION: 1. Mild lingular atelectasis/scarring at the costophrenic angle. No other acute cardiopulmonary disease. Hip/Pelvis X-Ray 06/28/25 07:53 IMPRESSION: 1. 15 degrees varus attenuation: Intertrochanteric fracture the proximal left femur. Cervical Spine CT 06/28/25 08:23 IMPRESSION: HEAD: 1. No acute intracranial findings. 2. Scattered bilateral hyperdense lesions as before, not significantly changed. C-SPINE: 1. No acute fracture. Head CT 06/28/25 08:23 IMPRESSION: HEAD: 1. No acute intracranial findings. 2. Scattered bilateral hyperdense lesions as before, not significantly changed. C-SPINE: 1. No acute fracture. Abdomen/Pelvis CT 06/28/25 13:52 IMPRESSION: 1. Cystic masses of the pancreas, largest measuring 2.2 cm. The differential diagnosis includes pseudocyst, intraductal papillary mucinous neoplasm (IPMN), m ucinous cystic neoplasm (MCN), and the less common serous cystadenoma and neuroendocrine tumor. 2: Cholelithiasis with mild gallbladder wall enhancement. No biliary dilatation or cholecystic fluid. 3: Hypovascular lesions of the liver, most likely benign hemangiomas, largest measuring 2.8 cm. 4: Acute left femoral intertrochanteric fracture with varus angulation. Labs Labs: Laboratory Results - last 24 hr 06/29/25 06/29/25 06/29/25 12:15 12:19 16:48 WBC RBC Hgb Hct MCV MCH MCHC RDW Plt Count 79 L MPV 11.0 H Immature Gran % (Auto) Neut % (Auto) Lymph % (Auto) [place] % (Auto) Eos % (Auto) Baso % (Auto) Lymph # (Auto) [place] # (Auto) Eos # (Auto) Baso # (Auto) Abs Immat Gran (auto) Absolute Neuts (auto) Absolute Nucleated RBC Nucleated RBC % % Immature Plt Fraction 5.3 Sodium Potassium Chloride Carbon Dioxide Anion Gap BUN Creatinine Estim Creat Clear Calc Estimated GFR Glucose POC Capillary Glucose 208 H 309 H Calcium Total Bilirubin AST ALT Alkaline Phosphatase Total Protein Albumin 06/29/25 06/30/25 06/30/25 22:21 05:35 08:07 WBC 6.4 RBC 3.21 L Hgb 10.0 L Hct 30.5 L MCV 95.0 MCH 31.2 MCHC 32.8 RDW 13.9 Plt Count 68 L MPV 11.7 H Immature Gran % (Auto) 0.5 Neut % (Auto) 73.4 H Lymph % (Auto) 14.5 L [place] % (Auto) 9.0 H Eos % (Auto) 2.4 Baso % (Auto) 0.2 Lymph # (Auto) 0.92 [place] # (Auto) 0.6 Eos # (Auto) 0.2 Baso # (Auto) 0.0 Abs Immat Gran (auto) 0.03 Absolute Neuts (auto) 4.7 Absolute Nucleated RBC 0.000 Nucleated RBC % 0.0 % Immature Plt Fraction 5.1 Sodium 133 L Potassium 4.0 Chloride 105 Carbon Dioxide 23 Anion Gap 5 BUN 17 Creatinine 0.75 Estim Creat Clear Calc 45 Estimated GFR > 60 Glucose 160 H POC Capillary Glucose 213 H 177 H Calcium 8.9 Total Bilirubin 1.1 AST 22 ALT 12 Alkaline Phosphatase 49 Total Protein 5.3 L Albumin 2.8 L
[2025-06-30 10:49] VITALS: BP 102/57; PULSE 93; RESP 20; TEMP 36.9; O2SAT 90
[2025-06-30] MEDS: INSULIN ASPART (*BKC) 100 UNITS/ML SUB-Q ×3 (13:20→21:02)
[2025-06-30] MEDS: HYDROcodone/acetaminophen (*CRX) 5-325 MG TABLET 1 TAB PO (13:34)
--- NOTE | 2025-06-30 15:45 | W.PM.PROC2 ---
Procedure Note - Detailed Date of Procedure 06/29/25 Pre-op Diagnosis left hip intertrochanteric fracture Post-op Diagnosis Same Procedure Performed 1. Left hip intertrochanteric fracture, intramedullary marcell fixation 2. intraoperative fluoroscopy Surgeon Ryan Betancourt MD Anesthesia General Indications The patient is a 84-year-old female who presented to the emergency department with a left hip endotrochanteric fracture after a fall at home. She has had frequent falls in the past. She normally ambulates with a walker. At the time of presentation, I was able to discuss the procedure with the patient's daughter and her son-in-law. They understand the risks, benefits, alternatives, and complications of this procedure. It includes, but are not limited to, infection, nerve or blood vessel injury, DVT, non-union malunion requiring additional surgery, and they agreed to proceed. Findings Left Hip IT fracture Description of Procedure A timeout was performed prior to the procedure to verify correct site of surgery as well as correct patient and correct procedure. Also verified at timeout was IV antibiotics within one hour of the incision. After obtaining consent with regards to the left hip IM fracture fixation, the patient's left hip was marked prior to bringing the patient back to the operating room. After this, the patient was brought to the operating room, placed in the supine position, at which time shown a wide general anesthesia. The right lower extremity was then flexed at 90 degrees to the hip and the knee. The left lower extremity was placed in traction on the fracture table, and fluoroscopic imaging was used to verify reduction with traction on the left lower extremity and slight internal rotation. After this was done, the left hip was then prepped and draped in a standstill fashion. I used fluoroscopy to determine the entry point for the guide wire, and after this was done, I placed a guide wire that was at the tip of the greater trochanteric ridge. After this was done, I then advanced the guide wire into the shaft and verified on the AP and lateral views of fluoroscopy that this was indeed a good starting point, which was at the junction between the middle and the anterior one-third of the greater trochanter on the lateral view. After this was done, I then used an opening reamer to gain access to the proximal aspect of the femoral canal. I then proceeded to place a long guide wire and remove the short guide wire, and then I placed the short intermediate layer marcell into position with a jig. After this was done, I then proceeded to determine the positioning for the hip screw, which was in the [id number] position with a guide wire. Both the AP and lateral views of fluoroscopy was used. After this was done, I then proceeded to create a drilling path into the femoral head and neck using fluoroscopy to verify positioning, and I measured the length of the screw to be at 100 millimeters. After this was done, I placed a hip screw going through the femoral neck into the femoral head and again verified with fluoroscopy views on AP and lateral views. After this was done, I then proceeded to remove this guide wire and then place an interlocking screw distally in the dynamic position. I then irrigated all three wounds. I then removed the jig, placed the screw to lock the hip screw in place prior to removing the jig. I then irrigated all three incision sites again, injected with lidocaine to anesthetize locally, and then proceeded to close the three incision sites using 2-O-Vicryl in the dermal layer and then steristrips placed. And the left hip was then banished in a still fashion. The patient was transferred to the recovery room in a stable condition. The patient would be weight-bearing as tolerated. Implants Sryker Gamma 2 IM Marcell Estimated Blood Loss 200 Drains No Packing No Pathology None sent Complications No immediate complications Condition Stable Disposition PACU
[2025-06-30 16:04] VITALS: BP 105/36; PULSE 84; RESP 20; TEMP 36.2; O2SAT 98
[2025-06-30 20:53] VITALS: BP 143/53; PULSE 84; RESP 16; TEMP 36.5; O2SAT 97
[2025-07-01 06:00] VITALS: BP 134/53; PULSE 82; RESP 18; TEMP 36.4; O2SAT 94
[2025-07-01] MEDS: INSULIN ASPART (*BKC) 100 UNITS/ML SUB-Q ×4 (06:25→21:53)
--- OUTSIDE RECORDS SUMMARY | 2025-07-01 06:28 | XMS_ITS | Clinical Summary ---
Author Organization [facility] Address [address] [place] [address] Care Team Providers Care Head Doffer Name Role Phone Unavailable Primary Care Provider Unavailabl e Source Comments [facility],non-owned Affiliates and Associated Physician Practices is amultiple site organization consisting of ambulatory clinics and hospital sitesin [place], [place], [place] and [place]. This disclosure is being madepursuant to the Care Everywhere program and may not contain all information available regarding this patient. 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 (FLUZONE HIGH-DOSE QUADRIVALENT; 65Y+), 0.7 ML (HD-[id number]) 07/12/2017 Social History Tobacco Use Types Packs/Day Years Used Date Smoking Tobacco: Never Assessed Comments Unknown Sex and Gender Information Value Date Recorded Sex Assigned at Not on file Legal Sex Female 3:40 PM CDT Gender Identity Not on file Sexual Orientation Not on file Plan of Treatment Health Maintenance Due Date Last Done Comments BONE DENSITY TESTING 1942 DTAP/TDAP/TD VACCINES (1 - Tdap) 1961 PNEUMOCOCCAL VACCINE 50+ (1 of 1 - PCV) 1992 ZOSTER VACCINE (1 of 2) 1992 Respiratory Syncytial Virus (RSV) Vaccine Pt: or over 60 yrs (1 - 1-dose 75+ series) 2017 DEPRESSION SCREENING 10/17/2024 COVID-19 VACCINE (1 - 2023-2 5 season) 2025 INFLUENZA VACCINE (#1) 2025 07/12/2017 HEPATITIS B VACCINE Aged Out No longe r eligible based on patient's age to complete this topic HIB VACCINE Aged Out No longer eligi ble based on patient's age to complete this topic HPV VACCINE Aged Out No longer eligi ble based on patient's age to complete this topic MENINGOCOCCAL (Group B) VACC INE SHARED DECISION-MAKING Aged Out No longer eligibl e based on patient's age to complete this topic MENINGOCOCCAL GROUPS A/C/Y/W VACCINE Aged Out No longer eligible b ased on patient's age to complete this topic Insurance MEDICARE [facility]
--- OUTSIDE RECORDS SUMMARY | 2025-07-01 06:29 | XMS_ITS | Encounter Summary ---
Author Organization [facility] Address [address] [place] [address] Care Team Providers Care Geodetic Engineer Name Role Phone Bereekt Talbert MD Primary Care Provider [phone] Encounter Details Date Type Department Care Team (Late st Contact Info) Description 06/25/2022 Telephone [facility] [address] [place], [place] [id number] Velasquez Del Rio MD [address] [place], [place] [id number] Social History Tobacco Use Types Packs/Day Years Used Date Smoking Tobacco: Former Smokeless Tobacco: Never Alcohol Use Standard Drinks/Week Comments Yes 0 (1 standard drink = 0.6 oz pur e alcohol) PHQ-2 Answer Date Recorded PHQ-2 Total Score (If total score is 3 or more points, staff should administer the PHQ-9) 0 04/20/2022 Comments Unknown Sex and Gender Information Value Date Recorded Sex Assigned at Not on file Legal Sex Female 1:14 PM CAREER PROFESSIONAL Gender Identity Female 04/28/2018 9:40 AM CDT Sexual Orientation Straight 12/30/2022 11 :31 AM CDT Occupation Industry Job Start Date Job End Date retired Not on file Not on file Not on file documented as of this encounter Plan of Treatment Not on file documented as of this encounter Visit Diagnoses Not on filedocumented in this encounter Care Teams Geodetic Engineer Relationship Specialty Start Date End Date Bereket Talbert MD PCP - General 03/02/18 documented as of this encounter
--- OUTSIDE RECORDS SUMMARY | 2025-07-01 06:29 | XMS_ITS | Clinical Summary ---
Author Organization [facility] Address [address] [place] [id number] Care Team Providers Care Official Greeter Name Role Phone Unavailable Primary Care Provider Unavailabl e Social History Tobacco Use Types Packs/Day Years Used Date Smoking Tobacco: Never Assessed Comments Unknown Sex and Gender Information Value Date Recorded Sex Assigned at Not on file Legal Sex Female 5:53 PM CDT Gender Identity Not on file Sexual Orientation Not on file Plan of Treatment Health Maintenance Due Date Last Done Comments DTaP, Tdap and Td Vaccines ( 1 - Tdap) 1961 Pneumococcal Vaccine: 50+ Ye ars (1 of 1 - PCV) 1992 Zoster Vaccines (1 of 2) 1992 Dexa Scan (General) 2007 RSV Immunization or 60+ Years (1 - 1-dose 75+ series) 2017 COVID-19 Vaccine (2023-2 5 season) 2025 Meningococcal B Vaccine Aged Out No l onger eligible based on patient's age to complete this topic Meningococcal Vaccine Aged Out No tere nate eligible based on patient's age to complete this topic RSV Immunizations Under 20 Months Aged Out No longer eligible based on patient's age to complete this topic
--- OUTSIDE RECORDS SUMMARY | 2025-07-01 06:29 | XMS_ITS | Clinical Summary ---
Author Organization [facility] Address [address] [place] [address] Care Team Providers Care [facility] Name Role Phone Bereket Talbert MD Primary Care Provider [phone] Allergies No known active allergies Medications losartan (COZAAR) 50 mg tabletIndicati ons:hypertensi on Take 1 tablet (50 mg total) by mouth daily 0 03/20/20 18 Active metFORMIN (GLUCOPHAGE) 500 mg tabletIndicati ons:type 2 diabetes mellitus Take 1 tablet (500 mg total) by mouth daily with breakfast Active multivitamin capsule Take 1 capsule by mouth daily Active empagliflozin (JARDIANCE) 10 mg tabletIndicati ons:type 2 diabetes mellitus 1 tablet (10 mg total) Active ezetimibe (ZETIA) 10 mg tablet ezetimibe 10 mg tablet 04/01/20 21 Active alendronate (FOSAMAX) 70 mg tablet Take 1 tablet (70 mg total) by mouth once a week 06/17/20 24 Active atorvastatin (LIPITOR) 40 mg tablet Take 1 tablet (40 mg total) by mouth daily 05/28/20 24 Active magnesium oxide (MAG-OX) 400 mg (241.3 mg elemental magnesium) tablet magnesium oxide 400 mg (241.3 mg magnesium) tablet 08/03/20 24 Active ezetimibe-ator vastatin 10-10 mg tablet daily 04/27/20 21 Active omega-3 fatty acids 1,000 mg capsule Fish Oil 1,000 mg (120 mg-180 mg) capsule 02/03/20 24 Active multivit with minerals/lutei n (MULTIVITAMIN 50 PLUS ORAL) daily 04/27/20 21 Active cholecalcifero l (VITAMIN D-3) 1,000 unit capsule Vitamin D3 25 mcg (1,000 unit) capsule 02/03/20 24 Active glimepiride (AMARYL) 1 mg tablet Take 1 tablet (1 mg total) by mouth 2 (two) times a day 06/24/20 24 025 Discontinued Active Problems Problem Noted Date Diagnosed Date Spinal stenosis 05/06/2023 Thrombocytopenia 05/21/2022 Hypertension 05/21/2022 Type 2 diabetes mellitus with diabetic polyneuro noe 05/21/2022 Hyperlipidemia 05/21/2022 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 [place] 06/15/2013 Encounters Date Type Department Care Team Description 06/26/2025 10:15 AM CDT Office Visit [facility] Medicine Hematology [address] [place] [phone] Solomon Duran MD Thrombocytopenia (Primary Dx) 06/26/2025 9:45 AM CDT Lab [facility] - Lab Collection [address] [place] [address] [address] [place] [address] Thrombocytopenia 06/26/2025 9:15 AM CDT Lab [facility] Medicine Oncology Lab [address] [place] [phone] Thrombocytopenia from Last 3 Months Immunizations Immunization Administration Dates Next Due H1N1 All Forms 06/11/2016 Influenza, Quad, Adjuvantate d, Intramuscular 07/10/2020 Influenza, Quadrivalent, Hig h Dose, Preservative Free, Intrr 07/21/2021 Influenza, Quadrivalent, Spl it, Intramuscular 07/10/2020,06/25/2019 Influenza, Trivalent, High D ose, Split, Preservative Free, Intramuscular 07/10/2020,06/25/2019,07/12/2017,06/12,06/11/2015,06/19/2013 Influenza, Trivalent, IM (MDV) 09/05/2014 Influenza, Unspecified 06/24/2018,07/12/2017 Pneumococcal Conjugate PCV 13 06/11/2015 Pneumococcal Polysaccharide PPV23 09/26/2018 Td, adsorbed 04/14/2017 Tdap 04/14/2017 ZOSTER LIVE 06/29/2013,06/19/2013 Surgical History Surgery Date Site/Laterality Comments BLADDER SURGERY Medical History Medical History Date Comments Type 2 diabetes mellitus Family History Medical History Relation Name Comments No Known Problems Father No Known Problems Maternal Grandfather No Known Problems Maternal Grandmother Heart disease Mother Cancer Other Diabetes Other Heart disease Other Stroke Other No Known Problems Paternal Grandmother No Known Problems Sister Relation Name Status Comments Father Maternal Grandfather Maternal Grandmother Mother Other Paternal Grandmother Sister Social History Tobacco Use Types Packs/Day Years Used Date Smoking Tobacco: Former Passive Smoke Exposure: Past Smokeless Tobacco: Never Tobacco Cessation:Counseling Given: Not Answered Alcohol Use Standard Drinks/Week Comments Yes 0 (1 standard drink = 0.6 oz pur e alcohol) PHQ-2 Answer Date Recorded PHQ-2 Total Score (If total score is 3 or more points, staff should administer the PHQ-9) 0 04/20/2022 Comments Unknown Sex and Gender Information Value Date Recorded Sex Assigned at Not on file Legal Sex Female 1:14 PM [employer] Gender Identity Female 04/28/2018 9:40 AM CDT Sexual Orientation Straight 12/30/2022 11 :31 AM CDT Occupation Industry Job Start Date Job End Date retired Not on file Not on file Not on file Obstetrics History Last Filed Vital Signs Vital Sign Reading Time Taken Comments Blood Pressure 148/70 06/26/2025 9:47 AM CDT Pulse 67 06/26/2025 9:47 AM CDT Temperature 36.4 C (97.6 F) 06/26/2025 9:47 AM CDT Respiratory Rate 18 06/26/2025 9:47 AM CDT Oxygen Saturation 100% 06/26/2025 9:47 AM CDT Inhaled Oxygen Concentration - - Weight 67.2 kg (148 lb 3.2 oz) 06/26/2025 9:47 A M CDT Height 166.1 cm (5' 5.4) 06/26/2025 9:47 AM CDT Body Mass Index 24.36 06/26/2025 9:47 AM CDT Plan of Treatment Health Maintenance Due Date Last Done Comments Albumin Creatinine Ratio, Urine 1942 Osteoporosis Screening-Bone Density Scan 1942 Dilated Eye Exam 1942 Foot Exam 1942 Lipid Panel 1942 Hepatitis B Screening 1960 Well Visit 65+ 2007 Zoster Vaccine (2 of 3) 08/24/2013 06/29/2013, 06/19 Hemoglobin A1C 10/20/2022 04/19/2022, 04/19/2022 Depression Screening 04/19/2023 04/19/2022 Fall Risk Assessment 04/22/2023 04/22/2022 Covid-19 Vaccine (4 - 2024-2 6 season) 2025 12/29/2021, 08/02/2021, 07/05/2021 Influenza Vaccine (#1) 2025 , 07/10/2020, 07/10/2020, Additional history exists eGFR 06/26/2026 06/26/2025, 06/17, 07/06/2023, Additional history exists DTaP/Tdap/Td Vaccine (3 - Td or Tdap) 04/14/2027 04/14/2017, 04/14/2017 Pneumococcal vaccine 65+ Completed 09/26/2018, 05/18 Procedures Procedure Name Priority Date/Time Associated Diagnosis Comments EGFR Routine 06/26/2025 9:27 AM CDT Thrombocytopenia DIFFERENTIAL AUTO Routine 06/26/2025 9:2 7 AM CDT Thrombocytopenia CBC WITH AUTO DIFFERENTIAL Routine 06/26/2025 9:27 AM CDT Thrombocytopenia COMPREHENSIVE METABOLIC PANEL Routine 06/26/2025 9:27 AM CDT Thrombocytopenia HEMOGLOBIN A1C Routine 04/19/2022 6:12 PM CDT from Last 3 Months or Most Recently Relevant to Health Maintenance Results * eGFR (06/26/2025 9:27 AM CDT) eGFR 77 >=60 mL/min/1. 73 m2 Comment: Interpretive Data Reference Interval Normal >/= 90 mL/min/1.73m2 Mildly decreased* 60 - 89 mL/min/1.73m2 Mildly to moderately decreased 45 - 59 mL/min/1.73m2 Moderately to severely decreased 30 - 44 mL/min/1.73m2 Severely decreased 15 - 29 mL/min/1.73m2 Kidney Failure < 15 mL/min/1.73m2 *Relative to young adult level Estimated glomerular filtration rate is determined by the 2020 CKD-EPI equation recommended by the National Kidney Foundation (A Unifying Approach to GFR Estimation: Recommendations of the NKF-ASK Task Force on Reassessing the Inclusion of Race in Diagnosing Kidney Disease, JASN 2020). The CKD-EPI equation should not be used for patients with unstable renal function and has not been validated in children and those over 70. Current interpretive data was last reviewed 2021. Blood 06/26/2025 9:27 AM CDT 06/26/2025 9:36 AM CDT us Solomon Duran MD LAB BLOOD ORDERABLES Final R esult [facility] Department of Laboratories [place] [phone] * Differential, auto (06/26/2025 9:27 AM CDT) Neutrophil abs 2.95 1.50 - 6.50 K/cumm Comment:Testing performed by : [facility], [address] [place], [place] [phone] Lymphocyte abs 1.07 0.80 - 3.30 K/cumm [facility] Comment:Testing performed by : [facility], [address] [place], [place] [phone] Monocyte abs 0.35 0.20 - 0.80 K/cumm MARY BJ Comment:Testing performed by : [facility], [address] [place] [phone] Eosinophil abs 0.18 0.00 - 0.50 K/cumm [facility]ERS[facility] BJ Comment:Testing performed by : [facility], [address] [place] [phone] Basophil abs 0.02 0.00 - 0.10 K/cumm MARY [facility] Comment:Testing performed by : [facility], [address] [place] [phone] Neutrophil pct 64.6 % CERNER BJ Comment: Interpretive Data Percent cell count reference ranges are not reported, since discordance with absolute values may lead to misinterpretation of CBC data. Current Interpretive Data was last revised on 2018. Testing performed by: [facility], [address] [place] [phone] Lymphocyte pct 23.4 % CERNER BJ Comment: Interpretive Data Percent cell count reference ranges are not reported, since discordance with absolute values may lead to misinterpretation of CBC data. Current Interpretive Data was last revised on 2018. Testing performed by: [facility], [address] [place] [phone] Monocyte pct 7.6 % CERNER BJ Comment: Interpretive Data Percent cell count reference ranges are not reported, since discordance with absolute values may lead to misinterpretation of CBC data. Current Interpretive Data was last revised on 2018. Testing performed by: [facility], [address] [place] [phone] Eosinophil pct 3.9 % CERNER BJ Comment: Interpretive Data Percent cell count reference ranges are not reported, since discordance with absolute values may lead to misinterpretation of CBC data. Current Interpretive Data was last revised on 2018. Testing performed by: [facility], [address] [place] [phone] Basophil pct 0.5 % CERNER BJ Comment: Interpretive Data Percent cell count reference ranges are not reported, since discordance with absolute values may lead to misinterpretation of CBC data. Current Interpretive Data was last revised on 2018. Testing performed by: [facility], [address] [place] [phone] Blood 06/26/2025 9:27 AM CDT 06/26/2025 9:31 AM CDT us Solomon Duran MD LAB BLOOD ORDERABLES Final R esult [facility]ARY [facility] Department [place] [address] * (ABNORMAL) CBC with auto differential (06/26/2025 9:27 AM CDT) WBC 4.56 3.80 - 9.90 K/cumm Comment:Testing performed by : [facility], [address] [place] [address] Hgb 12.6 11.9 - 15.5 g/dL CERNER BJ Comment:Testing performed by : [facility], [address] [place] [address] Hct 36.8 35.6 - 45.5 % CERNER BJ Comment:Testing performed by : [facility], [address] [place] [address] Plt 93(L) 150 - 400 K/cumm CERNER BJ Comment:Testing performed by : [facility], [address] [place] [address] MPV 9.2 6.8 - 10.4 fL CERNER BJ Comment:Testing performed by : [facility], [address] [place] [address] RBC 3.97 3.90 - 5.20 M/cumm CERNER BJ Comment:Testing performed by : [facility], [address] [place] [address] MCV 92.7 81.3 - 96.4 fL CERNER BJ Comment:Testing performed by : [facility], [address] [place] [address] MCH 31.8 27.1 - 33.3 pg CERNER BJ Comment:Testing performed by : [facility], [address] [place] [address] MCHC 34.3 32.3 - 35.7 g/dL CERNER BJ Comment:Testing performed by : [facility], [address] [place] [address] RDW CV 14.6 11.1 - 14.9 % CERNER BJ Comment:Testing performed by : [facility], [address] [place] [phone] NRBC abs 0.00 0.00 - 0.01 K/cumm [facility] Comment:Testing performed by : [facility], [address] [place] [phone] Blood 06/26/2025 9:27 AM CDT 06/26/2025 9:31 AM CDT us Solomon Duran MD LAB BLOOD ORDERABLES Final R esult [facility] Department [place] [address] * (ABNORMAL) Comprehensive metabolic panel (06/26/2025 9:27 AM CDT) Sodium 139 135 - 145 mmol/L Potassium, pl 4.0 3.3 - 4.9 mmol/L [facility] Chloride 106 97 - 110 mmol/L [facility] CO2 26 22 - 32 mmol/L [facility] Anion gap 7 2 - 15 mmol/L [facility] BUN 13 6 - 25 mg/dL [facility] Creatinine 0.77 0.60 - 1.10 mg/dL [facility] Glucose 179 70 - 199 mg/dL [facility] Comment: Interpretive Data Fasting glucose >/= 126 mg/dl is diagnostic for diabetes. Fasting is defined as no caloric intake for at least 8 hours. Fasting glucose between 100 mg/dl to 125 mg/dl is diagnostic of prediabetes. In a patient with classic symptoms of hyperglycemia or hyperglycemic crisis, a random glucose >/= 200 mg/dl is diagnostic for diabetes. In the absence of unequivocal hyperglycemia, results should be confirmed by repeat testing. The classification and Diagnosis of Diabetes Diabetes Care 202; 46: S19-S40. Current interpretive data was last revised 2022. Calcium 10.4(H) 8.5 - 10.3 mg/dL [facility] Bilirubin, total 0.9 0.1 - 1.2 mg/dL [facility] Protein, pl 6.4(L) 6.5 - 8.5 g/dL [facility] Albumin 3.8 3.5 - 5.0 g/dL [facility] Alk phos 58 40 - 130 Units/L [facility] ALT 13 7 - 45 Units/L [facility] AST 19 10 - 45 Units/L [facility] Blood 06/26/2025 9:27 AM CDT 06/26/2025 9:36 AM CDT Solomon Duran MD LAB BLOOD ORDERABLES Final R esult Performing Organization Address City/[facility] Co de Phone Number [facility] Department [place] [address] * (ABNORMAL) Hemoglobin A1c (04/19/2022 6:12 PM CDT) Hgb A1C 7.3(H) 4.0 - 5.6 % [facility] Estimated Average Glucose 163 mg/dL [facility] Comment: The ADA recommends reporting an estimated Average Glucose (eAG) with all Hemoglobin A1c results using the equation derived from a study of 507 normal and diabetic adults. Minority populations were underrepresented and children were not included. (Diabetes Care 2020; 43(S1): S66-S76). The eAG is not equivalent to a fasting glucose. Blood 04/19/2022 6:12 PM CDT 04/19/2022 7:24 PM CDT us Inés Moon MD LAB BLOOD ORDERABLES Final Result Performing Organization Address City/[facility]/ZIP Co de Phone Number [facility] Department [place] [address] from Last 3 Months or Most Recently Relevant to Health Maintenance Insurance [employer] [address] [employer] Advance Directives For more information, please contact: [phone] * Full Code (Latest Code Status on File) Date Activated Date Inactivated Comments 04/19/2022 5:45 PM 04/23/2022 12:20 AM Care Teams Hospitality Internship Relationship Specialty Start Date End Date Bereket Talbert MD PCP - General 03/02/18
[2025-07-01 06:32] LABS: Hematocrit 27.3 % (37.0-47.0); Hemoglobin 9.0 g/dL (12.0-15.0); Immature Platelet Fraction Pct 6.3 % (0.9-11.2); Mean Corpuscular HGB Conc 33.0 g/dl (32-36); Mean Corpuscular Hemoglobin 31.0 pg (26-34); Mean Corpuscular Volume 94.1 fl (80-100); Platelet Count Result 74 k/mm3 (150-375); Red Blood Count 2.90 M/mm3 (4.2-5.4); White Blood Count 5.6 K/mm3 (4.5-10.0)
[2025-07-01 06:53] LABS: Alanine Aminotransferase 10 U/L (6-35); Albumin Level 2.6 g/dL (3.5-5.1); Alkaline Phosphatase 49 U/L (38-126); Anion Gap 3 mmol/L (4-12); Aspartate Amino Transferase 21 U/L (14-36); Bilirubin,Total 0.8 mg/dL (0.2-1.3); Blood Urea Nitrogen 20 mg/dL (7-17); Calcium 9.1 mg/dL (8.4-10.2); Carbon Dioxide 24 mmol/L (22-30); Chloride 105 mmol/L (98-107); Estimated CRCL calculation 51 ml/min; Estimated Glomerular Filt Rate > 60; Glucose 212 mg/dL (65-110); Potassium 3.8 mmol/L (3.4-5.0); Sodium 132 mmol/L (137-145); Total Protein 5.1 g/dL (6.3-8.2)
--- NOTE | 2025-07-01 07:33 | P.PNIM_ITS ---
Progress Note: A&P Assessment and Plan (1) Closed intertrochanteric fracture of left femur: Qualifiers: Encounter type: initial encounter Fracture alignment: nondisplaced Qualified Code(s): S72.145A - Nondisplaced intertrochanteric fracture of left femur, initial encounter for closed fracture Code(s): S72.142A - Displaced intertrochanteric fracture of left femur, initial encounter for closed fracture Status: Acute Assessment and Plan: * according the patient this was mechanical fall that occurred while using her walker. * orthopedic physician has been consulted and patient underwent left IT nail on 06/29 * her platelets are low which is a chronic issue * she did have an EKG that was performed that was read as sinus rhythm first- degree AV block left axis deviation anterior septal myocardial infarction indeterminate age. This is comparable to her last EKG in 2023 * continue with pain management. * Working with CC regarding discharge planning - working on SNF placement (2) Thrombocytopenia: Code(s): D69.6 - Thrombocytopenia, unspecified Status: Acute Assessment and Plan: * platelets are 87. This could possibly be from NSAIDs? However her platelets are typically low it looks like her baseline is somewhere around 102-130. * may consider Hematology consult * her H and H is within normal limits * hematology following for chronic thrombocytopenia - will sign off for now * needs to follow-up with sleep scientist in 4-6 week upon discharge (3) Hyperlipidemia: Code(s): E78.5 - Hyperlipidemia, unspecified Status: Acute Assessment and Plan: * continue Zetia and atorvastatin are on hold. (4) DM2 (diabetes mellitus, type 2): Code(s): E11.9 - Type 2 diabetes mellitus without complications Status: Acute Assessment and Plan: * Accu-Cheks every 6 hours with sliding scale insulin * A1C (06/28/25): 7.2 (5) Hypertension: Code(s): I10 - Essential (primary) hypertension Status: Acute Assessment and Plan: * she was given a dose of losartan in the emergency room which brought her blood pressure down slightly. * p.r.n. Hydralazine with parameters Subjective Date/time seen: 07/01/25 07:33 Interval history: 84-year-old female patient who walks with a walker and states that she has had multiple falls in the past. She stated that typically when she falls she is able to get up however today she was using a walker and she tripped over something and she fell on her left hip. 07/01/2025 Patient sitting comfortably in bed at time of examination. Denies any chest pain, shortness of breath, nausea/vomiting, or abdominal pain at this time. Post op 06/29 of her left hip intertrochanteric fracture fixation. Seen by Oncology regarding thrombocytopenia, agree likely chronic, recommends following up in 4-6 weeks post discharge. Seen by PT/OT who recommends SNF. Working with care coordination regarding discharge placement. Likely [facility], no authorization at this time. Patient is otherwise stable and has no complaints at this time. Review of Systems Review of Systems: All systems reviewed & are unremarkable except as noted in HPI and below (the history and physical exam.) Constitutional: Constitutional: Reports as per HPI and Reports no additional constitutional complaints Eyes: Eyes: Reports as per HPI and Reports no additional eye complaints ENT: Reports system reviewed and no additional complaints, except as documented and Reports Normal hearing present Cardiovascular: Cardiovascular: Reports no additional cardiovascular complaints Respiratory: Respiratory: Reports as per HPI and Reports no additional respiratory complaints Gastrointestinal: Gastrointestinal: Reports as per HPI and Reports no additional gastrointestinal complaints Genitourinary: Genitourinary: Reports no additional female genitourinary complaints Musculoskeletal: Musculoskeletal: Reports no additional musculoskeletal complaints Integumentary/Breasts: Skin/Breast: Reports system reviewed and no additional complaints, except as docu Neurologic: Reports system reviewed and no additional complaints, except as documented and Reports Normal hearing present Psychiatric: Psychiatric: Reports no additional psychiatric complaints and Reports as per HPI Hematologic/Lymphatic: Hematologic/Lymphatic: Reports no additional hematologic/lymphatic complaints Allergic/Immunologic: Allergic/Immunologic: Reports no additional allergic/immunologic complaints Exam Const: General: cooperative, healthy appearing, comfortable, no acute distress, well developed, awake, Physically active, average body habitus and well nourished Nutritional Appearance: average body habitus and well nourished Orientation/consciousness: oriented to person and oriented to place HENMT: Head: normal to inspection, No palpable skull fracture present, normocephalic, atraumatic and abrasion Ears: hearing grossly normal bilaterally Eyes: General: appearance normal, both eyes and all related structures Alignment and Position: alignment normal Periorbital: periorbital findings normal Eyelids: eyelids normal Sclera: sclerae normal Pupils: Equal, round and reactive pupils present EOM: EOMs intact bilaterally Neck: Neck: normal visual inspection and full ROM Chest: Chest palpation & inspection: normal inspection of the chest Resp: Effort & Inspection: normal respiratory effort Auscultation: clear to auscultation bilaterally Cardio: Palpation: normal PMI Rate: regular rate Rhythm: regular rhythm Heart sounds: S1 normal heart sound present and S2 normal heart sound present Peripheral pulses: Peripheral pulses 2+ throughout GI: Inspection: normal to inspection Auscultation: normal bowel sounds Rectal Exam: deferred Urinary Catheter: Urinary Catheter: patent and draining and urine clear Skin: General skin exam: normal color Lesions: no lesions Rashes: no rashes Trauma: no lacerations or abrasions Wounds: no wounds Hair: normal Nails: normal Neuro: General: oriented to person and oriented to place Cranial nerves: Yes Equal, round and reactive pupils present and Yes Normal hearing present Cognition (Neuro): normal cognition Speech: normal speech Sensory Exam: normal sensation Extrem: General: normal to inspection Right upper extremity: normal to inspection and shoulder/upper arm Left upper extremity: normal to inspection and shoulder/upper arm Right lower extremity: normal to inspection Left lower extremity: hip/thigh Details: tenderness, abnormal ROM and deformity Location: other (Left leg shortened and externally rotated.) Psych: Appearance: grossly normal Mental Status: mental status grossly normal Speech and movement: Normal speech and movement present Affect: normal affect Attitude: cooperative Thought process: Normal thought process present Insight: Fair insight present (Psych) Judgement: Fair judgement present (Psych) Objective Data Vital Signs Vital Signs: Vital Signs - 24 hr 06/30/25 10:28 06/30/25 10:49 06/30/25 16:04 Temperature 98.4 F 97.2 F L Pulse Rate 93 84 Respiratory Rate 20 20 Blood Pressure 102/57 L 105/36 L Pulse Oximetry 90 98 Oxygen Delivery Room Air 06/30/25 20:34 06/30/25 20:53 07/01/25 06:00 Temperature 97.7 F 97.6 F Pulse Rate 84 82 Respiratory Rate 16 18 Blood Pressure 143/53 H 134/53 L Pulse Oximetry 97 94 Oxygen Delivery Room Air Intake/Output Intake/Output: Intake & Output 06/28/25 06/29/25 06/30/25 07/01/25 23:59 23:59 23:59 23:59 Intake Total 1970 1831 2130 50 Output Total 900 850 550 Balance 8235 859 3450 50 Meds/Results Medications: Active Medications Generic Name Dose Route Start Last Admin Trade Name Freq PRN Reason Stop Dose Admin Acetaminophen 500 mg 06/29/25 09:09 Acetaminophen 500 Mg Tablet PO Q6H PRN Pain Rated 1-3 Hydrocodone Bitart/Acetaminophen 1 tab 06/29/25 09:09 06/30/25 13:34 Hydrocodone/Acetaminophen (*Crx) 5-325 Mg Tablet PO 1 tab Q4H PRN Administration Pain Rated 4-6 Hydrocodone Bitart/Acetaminophen 1 tab 06/29/25 09:09 06/30/25 21:04 Hydrocodone/Acetaminophen (*Crx) 10-325 Mg Tablet PO 1 tab Q4H PRN Administration Pain Rated 7-10 Aspirin 81 mg 06/29/25 21:00 06/30/25 20:34 Aspirin 81 Mg Enteric Tablet PO 81 mg Q12HR CRISTIAN Administration Atorvastatin Calcium 40 mg 06/29/25 09:00 06/30/25 08:56 Atorvastatin 40 Mg Tablet PO 40 mg DAILY CRISTIAN Administration Dextrose 12.5 gm 06/28/25 05:37 Dextrose 50% 25 Gm/50 Ml Syringe IV PUSH PRN PRN Hypoglycemia Protocol Ezetimibe 10 mg 06/29/25 09:00 06/30/25 08:56 Ezetimibe 10 Mg Tablet PO 10 mg DAILY CRISTIAN Administration Famotidine 20 mg 06/29/25 21:00 06/30/25 20:34 Famotidine 20 Mg Tablet PO 20 mg Q12HR CRISTIAN Administration Fentanyl Citrate 25 mcg 06/29/25 07:38 Fentanyl Citrate Inj (*Crx) 100 Mcg/2 Ml Vial IV PUSH Q2M PRN Pain Fish Oil 1 gm 06/29/25 09:00 06/30/25 08:54 [place] 3 Polyunsat Fatty Acids 1 Gm Cap PO 1 gm DAILY CRISTIAN Administration Glucagon 1 mg 06/28/25 05:37 Glucagon For Inj 1 Mg Vial IM PRN PRN Hypoglycemia Protocol Glucose 15 gm 06/28/25 05:37 Glucose Oral Gel 15 Gm Of Glucse In 37.5 Gm Tube PO PRN PRN Hypoglycemia Protocol Hydralazine HCl 10 mg 06/28/25 05:28 06/28/25 05:53 Hydralazine Hcl 20 Mg/Ml Vial IV PUSH 10 mg Q8H PRN Administration Blood Pressure - High Hydromorphone HCl 1 mg 06/28/25 05:29 06/29/25 18:54 Hydromorphone Hcl Inj (*Crx) 1 Mg/Ml Syr IV PUSH 1 mg Q3H PRN Administration Pain Rated 7-10 Hydromorphone HCl 1 mg 06/29/25 09:09 Hydromorphone Hcl Inj (*Crx) 1 Mg/Ml Syr IV PUSH Q2H PRN Breakthrough Pain Rated 7-10 or NPO Dextrose 1,000 mls @ 100 mls/hr 06/28/25 05:37 Dextrose 5% 1,000 Ml IVPB PRN PRN Hypoglycemia Protocol Ibuprofen 800 mg in 200 mls @ 400 mls/hr 06/29/25 09:09 Caldolor 800 Mg/200 Ml IVPB Q6H PRN Breakthrough Pain Rated 1-3 or NPO Insulin Aspart 2 - 5 units 06/29/25 16:50 07/01/25 06:25 Insulin Aspart (*Bkc) 100 Units/Ml SUB-Q 2 units ACHS CRISTIAN Administration Protocol Losartan Potassium 25 mg 06/29/25 09:00 06/30/25 08:54 Losartan Potassium 25 Mg Tablet PO 25 mg DAILY CRISTIAN Administration Morphine Sulfate 2 mg 06/29/25 09:09 Morphine Sulfate (*Crx) 2 Mg/Ml Inj IV PUSH Q2H PRN Breakthrough Pain Rated 4-6 or NPO Multivitamins Therapeutic 1 tablet 06/29/25 09:00 06/30/25 08:56 Multivitamins Therapeutic Tab (*Bkc) PO 1 tablet DAILY CRISTIAN Administration Naloxone HCl 0.1 mg 06/29/25 09:09 Naloxone Hcl 0.4 Mg/Ml Vial IV PUSH Q2M PRN Opiate Reversal Ondansetron HCl 4 mg 06/29/25 07:38 Ondansetron Inj 4 Mg/2 Ml Vial IV PUSH ONCE PRN Nausea Ondansetron HCl 4 mg 06/29/25 09:09 Ondansetron Inj 4 Mg/2 Ml Vial IV PUSH Q4H PRN Nausea And Vomiting Polyethylene Glycol 17 gm 06/30/25 09:00 06/30/25 08:56 Polyethylene Glycol 3350 17 Gm Powd.Pack PO 17 gm QAM CRISTIAN Administration Senna/Docusate Sodium 2 tab 06/29/25 17:00 06/30/25 17:24 Senna/Docusate Sodium Tablet PO 2 tab BID CRISTIAN Administration Radiology Results: ITS Impressions Chest X-Ray 06/28/25 07:50 IMPRESSION: 1. Mild lingular atelectasis/scarring at the costophrenic angle. No other acute cardiopulmonary disease. Hip/Pelvis X-Ray 06/28/25 07:53 IMPRESSION: 1. 15 degrees varus attenuation: Intertrochanteric fracture the proximal left femur. Cervical Spine CT 06/28/25 08:23 IMPRESSION: HEAD: 1. No acute intracranial findings. 2. Scattered bilateral hyperdense lesions as before, not significantly changed. C-SPINE: 1. No acute fracture. Head CT 06/28/25 08:23 IMPRESSION: HEAD: 1. No acute intracranial findings. 2. Scattered bilateral hyperdense lesions as before, not significantly changed. C-SPINE: 1. No acute fracture. Abdomen/Pelvis CT 06/28/25 13:52 IMPRESSION: 1. Cystic masses of the pancreas, largest measuring 2.2 cm. The differential diagnosis includes pseudocyst, intraductal papillary mucinous neoplasm (IPMN), mucinous cystic neoplasm (MCN), and the less common serous cystadenoma and neuroendocrine tumor. 2: Cholelithiasis with mild gallbladder wall enhancement. No biliary dilatation or cholecystic fluid. 3: Hypovascular lesions of the liver, most likely benign hemangiomas, largest measuring 2.8 cm. 4: Acute left femoral intertrochanteric fracture with varus angulation. Labs Labs: Laboratory Results - last 24 hr 06/30/25 06/30/25 06/30/25 08:07 11:40 16:51 WBC RBC Hgb Hct MCV MCH MCHC RDW Plt Count MPV % Immature Plt Fraction Sodium Potassium Chloride Carbon Dioxide Anion Gap BUN Creatinine Estim Creat Clear Calc Estimated GFR Glucose POC Capillary Glucose 177 H 341 H 283 H Calcium Total Bilirubin AST ALT Alkaline Phosphatase Total Protein Albumin 06/30/25 07/01/25 07/01/25 20:57 06:07 06:16 WBC 5.6 RBC 2.90 L Hgb 9.0 L Hct 27.3 L MCV 94.1 MCH 31.0 MCHC 33.0 RDW 14.0 Plt Count 74 L MPV 11.3 H % Immature Plt Fraction 6.3 Sodium 132 L Potassium 3.8 Chloride 105 Carbon Dioxide 24 Anion Gap 3 L BUN 20 H Creatinine 0.66 L Estim Creat Clear Calc 51 Estimated GFR > 60 Glucose 212 H POC Capillary Glucose 220 H 230 H Calcium 9.1 Total Bilirubin 0.8 AST 21 ALT 10 Alkaline Phosphatase 49 Total Protein 5.1 L Albumin 2.6 L
[2025-07-01] MEDS: MULTIVITAMINS THERAPEUTIC TAB (*BKC) 1 TABLET PO (08:41)
[2025-07-01] MEDS: SENNA/DOCUSATE SODIUM TABLET 2 TAB PO ×2 (08:41→19:00)
[2025-07-01] MEDS: EZETIMIBE 10 MG TABLET PO (08:41)
[2025-07-01] MEDS: LOSARTAN POTASSIUM 25 MG TABLET PO (08:41)
[2025-07-01] MEDS: ATORVASTATIN 40 MG TABLET PO (08:41)
[2025-07-01] MEDS: ASPIRIN 81 MG ENTERIC TABLET PO ×2 (08:41→20:54)
[2025-07-01] MEDS: FAMOTIDINE 20 MG TABLET PO ×2 (08:42→20:54)
[2025-07-01] MEDS: OMEGA 3 POLYUNSAT FATTY ACIDS 1 GM CAP PO (08:42)
[2025-07-01] MEDS: HYDROcodone/acetaminophen (*CRX) 10-325 MG TABLET 1 TAB PO ×3 (08:48→20:53)
--- NOTE | 2025-07-01 10:59 | PCNFU ---
Nutrition Follow-Up Complete: Inadequate oral intake related to NPO, loss of appetite as evidenced by diet orders Diet advancement- Goal is met Intakes >50% when diet is advanced - Progressing with goal. Continue with same goal Goal: Pt current nutrition is Diabetic consistent carb diet, Glucerna BID (220 kcal, 10 g protein). Nutrition recommendation: No new recommendations. Continue current nutrition care plan and orders. Agree with orders Last recorded weight is 70.3 kg. Bowel Motility: No BMs are charted Labs Reviewed: Hgb 9.0, Hct 27.3, Alb 2.6, Na 132, BUN 20, Cre 0.66, Glu 212 Meds Noted: Senna, miralax, novolog Skin: surgical incision hip Additional Notes: Intakes improved 50-95%. Continue current nutrition care plan. Agree with current orders Monitoring intakes, weights, labs, diet orders, plan of care Follow up in 3 days
[2025-07-01 13:25] VITALS: BP 140/47; PULSE 79; RESP 18; TEMP 36.3; O2SAT 95
--- NOTE | 2025-07-01 21:15 | PM.CCN ---
Critical Care Event Note Summary Code activated: No Narrative: Rapid response called for altered mental status CT head with previous findings CTA head and neck pending UA pending CBC, CMP, PT INR NPO until more alert Patient having difficulties following commands, drift in all 4 extremities, difficulty answer questions, slow to respond, no respiratory distress lung sounds clear Magnesium replace CTA pending Critical Care Time Critical Care Time: Yes Total Critical Care Time: 67 minutes Due to a high probability of clinically significant, life threatening deterioration, the patient required my highest level of preparedness to intervene emergently and I personally spent this critical care time directly and personally managing the patient. This critical care time included obtaining a history; examining the patient; pulse oximetry; ordering and review of studies; arranging urgent treatment with development of a management plan; evaluation of patient's response to treatment; frequent reassessment; and discussions with other providers. It was exclusive of separately billable procedures and treating other patients and teaching time. Please see Assessment and Plan section and the rest of the note for further information on patient assessment and treatment. This case had a high probability of a clinically significant, sudden, or life threatening deterioration of this patient's condition which required my full and direct attention, intervention and personal management. Critical care time: 30 - 74 mins
--- NOTE | 2025-07-01 21:21 | ECG_ITS ---
Test Date: 2025-07-01 22:05:39 Measurements Intervals [place] Rate: 87 P: 27 OR: 206 QRS: -53 QRSD: 118 T: 92 QT: 354 QTc: 428 Interpretive Statements SINUS RHYTHM LEFT AXIS DEVIATION [QRS AXIS < -30] PATTERN CONSISTENT WITH PULMONARY DISEASE ANTEROSEPTAL MYOCARDIAL INFARCTION , OF INDETERMINATE AGE [40+ ms Q WAVE IN V1/V2] ABNORMAL ECG Compared to ECG 06/28/2025 03:17:44 First degree AV block no longer present Myocardial infarct finding still present Electronically Signed On 07-02-2025 12:08:27 CDT by Ashu Guzman M.D.
[2025-07-01 21:35] LABS: Alanine Aminotransferase 16 U/L (6-35); Albumin Level 2.9 g/dL (3.5-5.1); Alkaline Phosphatase 64 U/L (38-126); Anion Gap 3 mmol/L (4-12); Aspartate Amino Transferase 29 U/L (14-36); Bilirubin,Total 0.7 mg/dL (0.2-1.3); Blood Urea Nitrogen 19 mg/dL (7-17); Calcium 9.3 mg/dL (8.4-10.2); Carbon Dioxide 26 mmol/L (22-30); Chloride 103 mmol/L (98-107); Estimated CRCL calculation 49 ml/min; Estimated Glomerular Filt Rate > 60; Glucose 289 mg/dL (65-110); Magnesium 1.4 mg/dL (1.6-2.3); Potassium 4.1 mmol/L (3.4-5.0); Sodium 132 mmol/L (137-145); Total Protein 5.6 g/dL (6.3-8.2)
[2025-07-01 21:38] LABS: INR 1.2; Prothrombin Time 15.2 Seconds (11.1-14.7)
[2025-07-01 21:39] LABS: Partial Thromboplastin Time 38.1 Seconds (22.3-36.8)
[2025-07-01 21:51] VITALS: BP 178/65; PULSE 80; RESP 18; TEMP 36.6; O2SAT 94
[2025-07-01 22:17] LABS: Hematocrit 27.7 % (37.0-47.0); Hemoglobin 9.2 g/dL (12.0-15.0); Immature Granulocyte Percent A 0.2 % (0-0.5); Immature Platelet Fraction Pct 7.5 % (0.9-11.2); Lymphocytes Absolute Auto 0.71 K/mm3 (0.9-3.2); Mean Corpuscular HGB Conc 33.2 g/dl (32-36); Mean Corpuscular Hemoglobin 31.3 pg (26-34); Mean Corpuscular Volume 94.2 fl (80-100); Nucleated Red Blood Cells Absolute Auto 0.000 K/mm3 (0.0-0.012); Nucleated Red Blood Cells Perc 0.0 % (0.0-0.2); Platelet Count Result 84 k/mm3 (150-375); Red Blood Count 2.94 M/mm3 (4.2-5.4); White Blood Count 5.0 K/mm3 (4.5-10.0)
[2025-07-01 22:40] LABS: Anisocytosis 1+; Microcytosis 1+ (NORMAL)
[2025-07-01 22:41] LABS: Acanthocytes 1+; Crenated RBC 1+; Schistocytes None Seen
[2025-07-01 22:52] VITALS: BP 178/65; RESP 18; O2SAT 94
--- NOTE | 2025-07-01 23:04 | PC.NURSE ---
pt noted to be more confused during assessment. pt unable to answer questions responding with ok for every question. 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 vitals and blood sugar was taken rapid call all respondents came and new orders have been placed by Brittani DÍAZ. results pending. attempted to call daughter to update on resident and was unable to reach message left to call 3 med surg to speak to nurse.
[2025-07-02] MEDS: MAGNESIUM SULF 1 GM/D5W 100 ML 1 GM/100 ML BAG IVPB (01:30)
[2025-07-02 02:18] LABS: Add Urine Microscopic? YES; Appearance Urine Clear (Clear); Glucose Urine UA 3+ mg/dL (Negative); Leukocyte Esterase Ur 2+ LEU/UL (Negative); Nitrate Urine Negative (Negative); Non Pathogenic Casts 0-2; Specific Grav Ur 1.025 (1.001-1.035)
[2025-07-02 04:44] VITALS: BP 182/57; PULSE 86; RESP 18; TEMP 36.6; O2SAT 100
[2025-07-02 06:22] VITALS: BP 182/82
[2025-07-02] MEDS: INSULIN ASPART (*BKC) 100 UNITS/ML SUB-Q ×4 (06:34→20:34)
--- NOTE | 2025-07-02 06:43 | PC.NURSE ---
received call back from pt daughter updated on pt all questions and concerns answered without diffiuclty. pt currently resting in bed at this time no s/s of distress or pain.
--- NOTE | 2025-07-02 07:10 | P.PNIM_ITS ---
Progress Note: A&P Assessment and Plan (1) Closed intertrochanteric fracture of left femur: Qualifiers: Encounter type: initial encounter Fracture alignment: nondisplaced Qualified Code(s): S72.145A - Nondisplaced intertrochanteric fracture of left femur, initial encounter for closed fracture Code(s): S72.142A - Displaced intertrochanteric fracture of left femur, initial encounter for closed fracture Status: Acute Assessment and Plan: * according the patient this was mechanical fall that occurred while using her walker. * orthopedic physician has been consulted and patient underwent left IT nail on 06/29 * her platelets are low which is a chronic issue * she did have an EKG that was performed that was read as sinus rhythm first- degree AV block left axis deviation anterior septal myocardial infarction indeterminate age. This is comparable to her last EKG in 2023 * continue with pain management. * Working with CC regarding discharge planning - working on SNF placement * Accepted at [facility] to discharge to facility once medically cleared (2) Altered mental state: Code(s): R41.82 - Altered mental status, unspecified Status: Acute Assessment and Plan: * Rapid response called for AMS on evening of 07/01 * Difficulty following commands, drift in all 4 extremities, slow to respond * Head CT, CTA pending * UA shows 3+ glucose, 2+ leukocyte esterase, 6-10 WBC - will start Rocephin for empiric UTI coverage * Initial urine culture showed growth of E. Coli * Magnesium 1.4 - replaced, repeat on 07/02 was 1.5 * Rapid response called on evening of 07/01 for slurred speech, confusion, difficulty taking pills * Head CT: No significant interval change. Bilateral widespread hyperdense parenchymal fossae, grossly similar in number and distribution, likely related the patient's known diagnosis of amyloidosis. * CTA: Unremarkable CTA of the head and neck. No evidence of cerebral artery aneurysm, stenosis or mass * 07/02: * In AM, she did not present with any neurological deficits, confusion or slurred speech * @ 1230, nursing staff reported slurring of speech - on exam she did have slurred speech without unilateral weakness or drooping * Brain MRI ordered * Neurology consult (3) Thrombocytopenia: Code(s): D69.6 - Thrombocytopenia, unspecified Status: Acute Assessment and Plan: * platelets are 87. This could possibly be from NSAIDs? However her platelets are typically low it looks like her baseline is somewhere around 102-130. * may consider Hematology consult * her H and H is within normal limits * hematology following for chronic thrombocytopenia - will sign off for now * needs to follow-up with furnace worker in 4-6 week upon discharge (4) Hyperlipidemia: Code(s): E78.5 - Hyperlipidemia, unspecified Status: Acute Assessment and Plan: * continue Zetia and atorvastatin are on hold. (5) DM2 (diabetes mellitus, type 2): Code(s): E11.9 - Type 2 diabetes mellitus without complications Status: Acute Assessment and Plan: * Accu-Cheks every 6 hours with sliding scale insulin * A1C (06/28/25): 7.2 (6) Hypertension: Code(s): I10 - Essential (primary) hypertension Status: Acute Assessment and Plan: * she was given a dose of losartan in the emergency room which brought her blood pressure down slightly. * p.r.n. Hydralazine with parameters (7) Urinary tract infection: Code(s): N39.0 - Urinary tract infection, site not specified Status: Acute Assessment and Plan: * UA: 3+ glucose, 2+ leukocyte esterase, 6-10 WBC * UC obtained on 07/01 * previous micro reviewed - E coli * started on Rocephin Subjective Date/time seen: 07/02/25 07:10 Interval history: 84-year-old female patient who walks with a walker and states that she has had multiple falls in the past. She stated that typically when she falls she is able to get up however today she was using a walker and she tripped over something and she fell on her left hip. 07/02/2025 Patient sitting comfortably in bed at time of examination. Rapid response was called last night as patient was having difficulty swallowing pills and had associated slurred speech. Head CT/CTA were ordered which did not show any acute pathological findings. This A.M. she was examined and had no complaints at that time and did not have any evidence of slurred speech, confusion or neurological deficit, but I was alerted at approximately 1230 that she was slurring her speech again. On exam she did appear to be slurring her words but did not have unilateral weakness or facial droop. Will order brain MRI and place neurology consult. She otherwise is not complaining of any CP, SOB, n/v, or abd pain. Review of Systems Review of Systems: All systems reviewed & are unremarkable except as noted in HPI and below (the history and physical exam.) Constitutional: Constitutional: Reports as per HPI and Reports no additional constitutional complaints Eyes: Eyes: Reports as per HPI and Reports no additional eye complaints ENT: Reports system reviewed and no additional complaints, except as documented and Reports Normal hearing present Cardiovascular: Cardiovascular: Reports no additional cardiovascular complaints Respiratory: Respiratory: Reports as per HPI and Reports no additional respiratory complaints Gastrointestinal: Gastrointestinal: Reports as per HPI and Reports no additional gastrointestinal complaints Genitourinary: Genitourinary: Reports no additional female genitourinary complaints Musculoskeletal: Musculoskeletal: Reports no additional musculoskeletal complaints Integumentary/Breasts: Skin/Breast: Reports system reviewed and no additional complaints, except as docu Neurologic: Reports system reviewed and no additional complaints, except as documented and Reports Normal hearing present Psychiatric: Psychiatric: Reports no additional psychiatric complaints and Reports as per HPI Hematologic/Lymphatic: Hematologic/Lymphatic: Reports no additional hematologic/lymphatic complaints Allergic/Immunologic: Allergic/Immunologic: Reports no additional allergic/immunologic complaints Exam Const: General: cooperative, healthy appearing, comfortable, no acute distress, well developed, awake, Physically active, average body habitus and well nourished Nutritional Appearance: average body habitus and well nourished Orientation/consciousness: oriented to person and oriented to place HENMT: Head: normal to inspection, No palpable skull fracture present, normocephalic, atraumatic and abrasion Ears: hearing grossly normal bilaterally Eyes: General: appearance normal, both eyes and all related structures Alignment and Position: alignment normal Periorbital: periorbital findings normal Eyelids: eyelids normal Sclera: sclerae normal Pupils: Equal, round and reactive pupils present EOM: EOMs intact bilaterally Neck: Neck: normal visual inspection and full ROM Chest: Chest palpation & inspection: normal inspection of the chest Resp: Effort & Inspection: normal respiratory effort Auscultation: clear to auscultation bilaterally Cardio: Palpation: normal PMI Rate: regular rate Rhythm: regular rhythm Heart sounds: S1 normal heart sound present and S2 normal heart sound present Peripheral pulses: Peripheral pulses 2+ throughout GI: Inspection: normal to inspection Auscultation: normal bowel sounds Rectal Exam: deferred Urinary Catheter: Urinary Catheter: patent and draining and urine clear Skin: General skin exam: normal color Lesions: no lesions Rashes: no fredy hes Trauma: no lacerations or abrasions Wounds: no wounds Hair: normal Nails: normal Neuro: General: oriented to person and oriented to place Cranial nerves: Yes Equal, round and reactive pupils present and Yes Normal hearing present Cognition (Neuro): normal cognition Speech: normal speech Sensory Exam: normal sensation Other: Slurring of speech, although is A&Ox3 with no unilateral weakness Extrem: General: normal to inspection Right upper extremity: normal to inspection and shoulder/upper arm Left upper extremity: normal to inspection and shoulder/upper arm Right lower extremity: normal to inspection Left lower extremity: hip/thigh Details: tenderness, abnormal ROM and deformity Location: other (Left leg shortened and externally rotated.) Psych: Appearance: grossly normal Mental Status: mental status grossly normal Speech and movement: Normal speech and movement present Affect: normal affect Attitude: cooperative Thought process: Normal thought process present Insight: Fair insight present (Psych) Judgement: Fair judgement present (Psych) Objective Data Vital Signs Vital Signs: Vital Signs - 24 hr 07/01/25 08:41 07/01/25 13:25 07/01/25 21:51 Temperature 97.4 F L 97.8 F Pulse Rate 79 80 Respiratory Rate 18 18 Blood Pressure 140/47 L 178/65 H Pulse Oximetry 95 94 Oxygen Delivery Room Air Oxygen Flow Rate 07/01/25 22:52 07/02/25 04:44 07/02/25 06:22 Temperature 97.9 F Pulse Rate 86 Respiratory Rate 18 18 Blood Pressure 178/65 H 182/57 H 182/82 H Pulse Oximetry 94 100 Oxygen Delivery Nasal Cannula Oxygen Flow Rate 2 Intake/Output Intake/Output: Intake & Output 06/29/25 06/30/25 07/01/25 07/02/25 23:59 23:59 23:59 23:59 Intake Total 1831 2130 650 450 Output Total 850 550 300 300 Balance 981 1580 350 150 Meds/Results Medications: Active Medications Generic Name Dose Route Start Last Admin Trade Name Freq PRN Reason Stop Dose Admin Acetaminophen 500 mg 06/29/25 09:09 Acetaminophen 500 Mg Tablet PO Q6H PRN Pain Rated 1-3 Hydrocodone Bitart/Acetaminophen 1 tab 06/29/25 09:09 06/30/25 13:34 Hydrocodone/Acetaminophen (*Crx) 5-325 Mg Tablet PO 1 tab Q4H PRN Administration Pain Rated 4-6 Hydrocodone Bitart/Acetaminophen 1 tab 06/29/25 09:09 07/01/25 20:53 Hydrocodone/Acetaminophen (*Crx) 10-325 Mg Tablet PO 1 tab Q4H PRN Administration Pain Rated 7-10 Aspirin 81 mg 06/29/25 21:00 07/01/25 20:54 Aspirin 81 Mg Enteric Tablet PO 81 mg Q12HR CRISTIAN Administration Atorvastatin Calcium 40 mg 06/29/25 09:00 07/01/25 08:41 Atorvastatin 40 Mg Tablet PO 40 mg DAILY CRISTIAN Administration Dextrose 12.5 gm 06/28/25 05:37 Dextrose 50% 25 Gm/50 Ml Syringe IV PUSH PRN PRN Hypoglycemia Protocol Ezetimibe 10 mg 06/29/25 09:00 07/01/25 08:41 Ezetimibe 10 Mg Tablet PO 10 mg DAILY CRISTIAN Administration Famotidine 20 mg 06/29/25 21:00 07/01/25 20:54 Famotidine 20 Mg Tablet PO 20 mg Q12HR CRISTIAN Administration Fentanyl Citrate 25 mcg 06/29/25 07:38 Fentanyl Citrate Inj (*Crx) 100 Mcg/2 Ml Vial IV PUSH Q2M PRN Pain Fish Oil 1 gm 06/29/25 09:00 07/01/25 08:42 [place] 3 Polyunsat Fatty Acids 1 Gm Cap PO 1 gm DAILY CRISTIAN Administration Glucagon 1 mg 06/28/25 05:37 Glucagon For Inj 1 Mg Vial IM PRN PRN Hypoglycemia Protocol Glucose 15 gm 06/28/25 05:37 Glucose Oral Gel 15 Gm Of Glucse In 37.5 Gm Tube PO PRN PRN Hypoglycemia Protocol Hydralazine HCl 10 mg 06/28/25 05:28 07/02/25 05:56 Hydralazine Hcl 20 Mg/Ml Vial IV PUSH 10 mg Q8H PRN Administration Blood Pressure - High Hydromorphone HCl 1 mg 06/29/25 09:09 Hydromorphone Hcl Inj (*Crx) 1 Mg/Ml Syr IV PUSH On Hold: 07/01/25 21:41 Q2H PRN Breakthrough Pain Rated 7-10 or NPO Hydromorphone HCl 0.5 mg 07/01/25 21:42 Hydromorphone Hcl Inj (*Crx) 1 Mg/Ml Syr IV PUSH Q3H PRN Pain Rated 7-10 Dextrose 1,000 mls @ 100 mls/hr 06/28/25 05:37 Dextrose 5% 1,000 Ml IVPB PRN PRN Hypoglycemia Protocol Ibuprofen 800 mg in 200 mls @ 400 mls/hr 06/29/25 09:09 Caldolor 800 Mg/200 Ml IVPB Q6H PRN Breakthrough Pain Rated 1-3 or NPO Insulin Aspart 2 - 5 units 06/29/25 16:50 07/02/25 06:34 Insulin Aspart (*Bkc) 100 Units/Ml SUB-Q 2 units ACHS CRISTIAN Administration Protocol Losartan Potassium 25 mg 06/29/25 09:00 07/01/25 08:41 Losartan Potassium 25 Mg Tablet PO 25 mg DAILY CRISTIAN Administration Morphine Sulfate 2 mg 06/29/25 09:09 Morphine Sulfate (*Crx) 2 Mg/Ml Inj IV PUSH Q2H PRN Breakthrough Pain Rated 4-6 or NPO Multivitamins Therapeutic 1 tablet 06/29/25 09:00 07/01/25 08:41 Multivitamins Therapeutic Tab (*Bkc) PO 1 tablet DAILY CRISTIAN Administration Naloxone HCl 0.1 mg 06/29/25 09:09 Naloxone Hcl 0.4 Mg/Ml Vial IV PUSH Q2M PRN Opiate Reversal Ondansetron HCl 4 mg 06/29/25 07:38 Ondansetron Inj 4 Mg/2 Ml Vial IV PUSH ONCE PRN Nausea Ondansetron HCl 4 mg 06/29/25 09:09 Ondansetron Inj 4 Mg/2 Ml Vial IV PUSH Q4H PRN Nausea And Vomiting Polyethylene Glycol 17 gm 06/30/25 09:00 07/01/25 08:42 Polyethylene Glycol 3350 17 Gm Powd.Pack PO 17 gm QAM CRISTIAN Administration Senna/Docusate Sodium 2 tab 06/29/25 17:00 07/01/25 19:00 Senna/Docusate Sodium Tablet PO 2 tab BID CRISTIAN Administration Radiology Results: ITS Impressions Chest X-Ray 06/28/25 07:50 IMPRESSION: 1. Mild lingular atelectasis/scarring at the costophrenic angle. No other acute cardiopulmonary disease. Hip/Pelvis X-Ray 06/28/25 07:53 IMPRESSION: 1. 15 degrees varus attenuation: Intertrochanteric fracture the proximal left femur. Cervical Spine CT 06/28/25 08:23 IMPRESSION: HEAD: 1. No acute intracranial findings. 2. Scattered bilateral hyperdense lesions as before, not significantly changed. C-SPINE: 1. No acute fracture. Abdomen/Pelvis CT 06/28/25 13:52 IMPRESSION: 1. Cystic masses of the pancreas, largest measuring 2.2 cm. The differential diagnosis includes pseudocyst, intraductal papillary mucinous neoplasm (IPMN), mucinous cystic neoplasm (MCN), and the less common serous cystadenoma and neuroendocrine tumor. 2: Cholelithiasis with mild gallbladder wall enhancement. No biliary dilatation or cholecystic fluid. 3: Hypovascular lesions of the liver, most likely benign hemangiomas, largest measuring 2.8 cm. 4: Acute left femoral intertrochanteric fracture with varus angulation. Intraoperative X-Ray 07/01/25 12:05 IMPRESSION: 1. Fluoroscopy utilized during internal fixation of an intertrochanteric fracture the proximal femur which is now in near-anatomic alignment. Labs Labs: Laboratory Results - last 24 hr 06/28/25 07/01/25 07/01/25 11:11 07:45 11:34 WBC RBC Hgb Hct MCV MCH MCHC RDW Plt Count MPV Immature Gran % (Auto) Neut % (Auto) Lymph % (Auto) [place] % (Auto) Eos % (Auto) Baso % (Auto) Lymph # (Auto) [place] # (Auto) Eos # (Auto) Baso # (Auto) Abs Immat Gran (auto) Absolute Neuts (auto) Absolute Nucleated RBC Band Neutrophils % Nucleated RBC % Platelet Estimate % Immature Plt Fraction Anisocytosis Microcytosis Crenated Cell Acanthocytes (Spur) Schistocytes PT INR APTT Sodium Potassium Chloride Carbon Dioxide Anion Gap BUN Creatinine Estim Creat Clear Calc Estimated GFR Glucose POC Capillary Glucose 184 H 288 H Calcium Phosphorus Magnesium Total Bilirubin AST ALT Alkaline Phosphatase Total Protein Albumin Urine Color Urine Appearance Urine pH Ur Specific [place] Urine Protein Urine Glucose (UA) Urine Ketones Ur Blood (Man) Urine Nitrate Urine Bilirubin Urine Urobilinogen Leukocyte Esterase Rfl Urine RBC Urine WBC Ur Squamous Epith Cells Urine Bacteria Urine Casts Anti-Plt HLA Class I Ab Negative Anti-Plt GP IV Negative Plasma Anti-Plt IIb/IIIa Negative Plasma Anti-Plt Ia/IIa Negative Plasma Anti-Plt Ib/IX Negative 07/01/25 07/01/25 07/01/25 16:50 21:05 21:17 WBC 5.0 RBC 2.94 L Hgb 9.2 L Hct 27.7 L MCV 94.2 MCH 31.3 MCHC 33.2 RDW 14.0 Plt Count 84 L MPV 11.9 H Immature Gran % (Auto) 0.2 Neut % (Auto) 72.9 Lymph % (Auto) 14.3 L [place] % (Auto) 9.4 H Eos % (Auto) 3.0 Baso % (Auto) 0.2 Lymph # (Auto) 0.71 L [place] # (Auto) 0.5 Eos # (Auto) 0.2 Baso # (Auto) 0.0 Abs Immat Gran (auto) 0.01 Absolute Neuts (auto) 3.6 Absolute Nucleated RBC 0.000 Band Neutrophils % Not Reportable Nucleated RBC % 0.0 Platelet Estimate Decreased % Immature Plt Fraction 7.5 Anisocytosis 1+ Microcytosis 1+ Crenated Cell 1+ Acanthocytes (Spur) 1+ Schistocytes None seen PT 15.2 H INR 1.2 APTT 38.1 H Sodium 132 L Potassium 4.1 Chloride 103 Carbon Dioxide 26 Anion Gap 3 L BUN 19 H Creatinine 0.68 L Estim Creat Clear Calc 49 Estimated GFR > 60 Glucose 289 H POC Capillary Glucose 305 H 263 H Calcium 9.3 Phosphorus 2.3 L Magnesium 1.4 L Total Bilirubin 0.7 AST 29 ALT 16 Alkaline Phosphatase 64 Total Protein 5.6 L Albumin 2.9 L Urine Color Urine Appearance Urine pH Ur Specific [place] Urine Protein Urine Glucose (UA) Urine Ketones Ur Blood (Man) Urine Nitrate Urine Bilirubin Urine Urobilinogen Leukocyte Esterase Rfl Urine RBC Urine WBC Ur Squamous Epith Cells Urine Bacteria Urine Casts Anti-Plt HLA Class I Ab Anti-Plt GP IV Plasma Anti-Plt IIb/IIIa Plasma Anti-Plt Ia/IIa Plasma Anti-Plt Ib/IX 07/02/25 07/02/25 01:58 06:27 WBC RBC Hgb Hct MCV MCH MCHC RDW Plt Count MPV Immature Gran % (Auto) Neut % (Auto) Lymph % (Auto) [place] % (Auto) Eos % (Auto) Baso % (Auto) Lymph # (Auto) [place] # (Auto) Eos # (Auto) Baso # (Auto) Abs Immat Gran (auto) Absolute Neuts (auto) Absolute Nucleated RBC Band Neutrophils % Nucleated RBC % Platelet Estimate % Immature Plt Fraction Anisocytosis Microcytosis Crenated Cell Acanthocytes (Spur) Schistocytes PT INR APTT Sodium Potassium Chloride Carbon Dioxide Anion Gap BUN Creatinine Estim Creat Clear Calc Estimated GFR Glucose POC Capillary Glucose 244 H Calcium Phosphorus Magnesium Total Bilirubin AST ALT Alkaline Phosphatase Total Protein Albumin Urine Color Yellow Urine Appearance Clear Urine pH 6.5 Ur Specific [place] 1.025 Urine Protein Trace Urine Glucose (UA) 3+ H Urine Ketones Negative Ur Blood (Man) Negative Urine Nitrate Negative Urine Bilirubin Negative Urine Urobilinogen 1.0 Leukocyte Esterase Rfl 2+ H Urine RBC 0-2 Urine WBC 6-10 H Ur Squamous Epith Cells None seen Urine Bacteria None seen Urine Casts 0-2 Anti-Plt HLA Class I Ab Anti-Plt GP IV Plasma Anti-Plt IIb/IIIa Plasma Anti-Plt Ia/IIa Plasma Anti-Plt Ib/IX
[2025-07-02 08:21] LABS: Magnesium 1.5 mg/dL (1.6-2.3)
[2025-07-02] MEDS: OMEGA 3 POLYUNSAT FATTY ACIDS 1 GM CAP PO (09:23)
[2025-07-02] MEDS: FAMOTIDINE 20 MG TABLET PO ×2 (09:24→20:33)
[2025-07-02] MEDS: EZETIMIBE 10 MG TABLET PO (09:24)
[2025-07-02] MEDS: ASPIRIN 81 MG ENTERIC TABLET PO ×2 (09:24→20:33)
[2025-07-02] MEDS: cefTRIAXone 1 GM in SODIUM CHLORIDE 0.9% IV 50 ML 100 ML IVPB (09:24)
[2025-07-02] MEDS: SENNA/DOCUSATE SODIUM TABLET 2 TAB PO ×2 (09:24→17:18)
[2025-07-02] MEDS: MULTIVITAMINS THERAPEUTIC TAB (*BKC) 1 TABLET PO (09:24)
[2025-07-02] MEDS: LOSARTAN POTASSIUM 25 MG TABLET PO (09:24)
[2025-07-02 09:38] VITALS: PULSE 74; O2SAT 91
[2025-07-02] MEDS: HYDROcodone/acetaminophen (*CRX) 5-325 MG TABLET 1 TAB PO ×2 (09:39→20:33)
[2025-07-02] MEDS: ATORVASTATIN 40 MG TABLET PO (12:36)
[2025-07-02 14:00] VITALS: BP 130/78; PULSE 73; RESP 18; TEMP 35.8; O2SAT 98
[2025-07-02 14:44] LABS: Alanine Aminotransferase 17 U/L (6-35); Albumin Level 2.8 g/dL (3.5-5.1); Alkaline Phosphatase 55 U/L (38-126); Anion Gap 3 mmol/L (4-12); Aspartate Amino Transferase 32 U/L (14-36); Bilirubin,Total 0.9 mg/dL (0.2-1.3); Blood Urea Nitrogen 18 mg/dL (7-17); Calcium 9.7 mg/dL (8.4-10.2); Carbon Dioxide 25 mmol/L (22-30); Chloride 105 mmol/L (98-107); Estimated CRCL calculation 54 ml/min; Estimated Glomerular Filt Rate > 60; Glucose 237 mg/dL (65-110); Potassium 3.9 mmol/L (3.4-5.0); Sodium 133 mmol/L (137-145); Total Protein 5.4 g/dL (6.3-8.2)
[2025-07-02 14:49] LABS: Hematocrit 28.5 % (37.0-47.0); Hemoglobin 9.4 g/dL (12.0-15.0); Immature Granulocyte Percent A 0.6 % (0-0.5); Immature Platelet Fraction Pct 6.5 % (0.9-11.2); Lymphocytes Absolute Auto 0.70 K/mm3 (0.9-3.2); Mean Corpuscular HGB Conc 33.0 g/dl (32-36); Mean Corpuscular Hemoglobin 31.1 pg (26-34); Mean Corpuscular Volume 94.4 fl (80-100); Nucleated Red Blood Cells Absolute Auto 0.000 K/mm3 (0.0-0.012); Nucleated Red Blood Cells Perc 0.0 % (0.0-0.2); Platelet Count Result 94 k/mm3 (150-375); Red Blood Count 3.02 M/mm3 (4.2-5.4); White Blood Count 5.4 K/mm3 (4.5-10.0)
[2025-07-02] MEDS: MAGNESIUM OXIDE 200 MG TABLET PO (14:56)
[2025-07-02 15:01] LABS: Schistocytes None Seen
[2025-07-02 19:47] VITALS: BP 120/62; PULSE 78; RESP 18; TEMP 36.1; O2SAT 100
[2025-07-03 04:35] VITALS: BP 154/73; PULSE 80; RESP 18; TEMP 36.5; O2SAT 98
[2025-07-03 05:53] LABS: Hematocrit 27.8 % (37.0-47.0); Hemoglobin 9.2 g/dL (12.0-15.0); Immature Granulocyte Percent A 0.4 % (0-0.5); Lymphocytes Absolute Auto 0.78 K/mm3 (0.9-3.2); Mean Corpuscular HGB Conc 33.1 g/dl (32-36); Mean Corpuscular Hemoglobin 31.0 pg (26-34); Mean Corpuscular Volume 93.6 fl (80-100); Nucleated Red Blood Cells Absolute Auto 0.000 K/mm3 (0.0-0.012); Nucleated Red Blood Cells Perc 0.0 % (0.0-0.2); Platelet Count Result 112 k/mm3 (150-375); Red Blood Count 2.97 M/mm3 (4.2-5.4); White Blood Count 5.0 K/mm3 (4.5-10.0)
[2025-07-03 06:06] LABS: Alanine Aminotransferase 15 U/L (6-35); Albumin Level 3.0 g/dL (3.5-5.1); Alkaline Phosphatase 63 U/L (38-126); Anion Gap 5 mmol/L (4-12); Aspartate Amino Transferase 25 U/L (14-36); Bilirubin,Total 1.1 mg/dL (0.2-1.3); Blood Urea Nitrogen 19 mg/dL (7-17); Calcium 9.9 mg/dL (8.4-10.2); Carbon Dioxide 26 mmol/L (22-30); Chloride 103 mmol/L (98-107); Estimated CRCL calculation 51 ml/min; Estimated Glomerular Filt Rate > 60; Glucose 206 mg/dL (65-110); Potassium 4.1 mmol/L (3.4-5.0); Sodium 134 mmol/L (137-145); Total Protein 5.8 g/dL (6.3-8.2)
[2025-07-03] MEDS: INSULIN ASPART (*BKC) 100 UNITS/ML SUB-Q ×4 (06:36→21:39)
--- NOTE | 2025-07-03 08:13 | P.PNIM_ITS ---
Progress Note: A&P Assessment and Plan (1) Altered mental state: Code(s): R41.82 - Altered mental status, unspecified Status: Acute Assessment and Plan: -Rapid response called for AMS on evening of 07/01-->Difficulty following commands, drift in all 4 extremities, slow to respond. Again noted 07/02, no focal deficits noted. - CT head no acute process, consistent with known history of amyloidosis -UA shows 3+ glucose, 2+ leukocyte esterase, 6-10 WBC - stared on Rocephin for empiric UTI coverage - MRI brain with 6 mm and 4 mm enhancing masses in the brain which may be metastatic disease or subacute infarcts. Per patient's daughter, patient sees Neurology (Ulisses Paniagua) at [facility] to monitor hemangiomas. Will attempt to obtain records from [facility] to compare previous imaging. Await neuro consultation. - continue ASA, statin - continue neuro checks (2) Closed intertrochanteric fracture of left femur: Qualifiers: Encounter type: initial encounter Fracture alignment: nondisplaced Qualified Code(s): S72.145A - Nondisplaced intertrochanteric fracture of left femur, initial encounter for closed fracture Code(s): S72.142A - Displaced intertrochanteric fracture of left femur, initial encounter for closed fracture Status: Acute Assessment and Plan: -according the patient this was mechanical fall that occurred while using her walker. -orthopedic physician has been consulted and patient underwent left IT nail on 06/29 -continue with pain management. -Working with CC regarding discharge planning - working on SNF placement * Accepted at [facility] shaniqua to discharge to facility once medically cleared (3) Urinary tract infection: Code(s): N39.0 - Urinary tract infection, site not specified Status: Acute Assessment and Plan: -UA: 3+ glucose, 2+ leukocyte esterase, 6-10 WBC -UC obtained on 07/01 -previous micro reviewed - E coli -started on Rocephin (4) Thrombocytopenia: Code(s): D69.6 - Thrombocytopenia, unspecified Status: Acute Assessment and Plan: -platelets shaila 68. However her platelets are typically low it looks like her baseline is somewhere around 102-130. 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 (6) DM2 (diabetes mellitus, type 2): Code(s): E11.9 - Type 2 diabetes mellitus without complications Status: Acute Assessment and Plan: -Accu-Cheks every 6 hours with sliding scale insulin -A1C (06/28/25): 7.2 (7) Hypertension: Code(s): I10 - Essential (primary) hypertension Status: Acute Assessment and Plan: -she was given a dose of losartan in the emergency room which brought her blood pressure down slightly. -p.r.n. Hydralazine with parameters Subjective Date/time seen: 07/03/25 08:13 Interval history: Patient seen and examined at bedside. Pain decently controlled. Has some mild confusion. Discussed with daughter who states confusion is her baseline, but episode of slurred speech are new. Patient follows with neurology at [facility] for hemangiomas. Review of Systems Review of Systems: All systems reviewed & are unremarkable except as noted in HPI and below Exam Narrative: General: NAD Eyes: EOMI ENT: neck supple Cardiovascular: Regular rate and rhythm Respiratory: Clear to auscultation, respirations even and unlabored on RA Gastrointestinal: Soft, non tender Genitourinary: no suprapubic tenderness Musculoskeletal: No edema Skin: warm, dry Neuro: Alert. Psych: Mood appropriate Objective Data Vital Signs Vital Signs: Vital Signs - 24 hr 07/02/25 09:38 07/02/25 14:00 07/02/25 19:47 Temperature 96.5 F L 97 F L Pulse Rate 74 73 78 Respiratory Rate 18 18 Blood Pressure 130/78 120/62 Pulse Oximetry 91 98 100 07/03/25 04:35 Temperature 97.7 F Pulse Rate 80 Respiratory Rate 18 Blood Pressure 154/73 H Pulse Oximetry 98 Intake/Output Intake/Output: Intake & Output 06/30/25 07/01/25 07/02/2517/25 23:59 23:59 23:59 23:59 Intake Total 2130 650 1220 300 Output Total 720 993 5893 600 Balance 1580 350 220 -300 Meds/Results Medications: Active Medications Generic Name Dose Route Start Last Admin Trade Name Freq PRN Reason Stop Dose Admin Acetaminophen 500 mg 06/29/25 09:09 Acetaminophen 500 Mg Tablet PO Q6H PRN Pain Rated 1-3 Hydrocodone Bitart/Acetaminophen 1 tab 06/29/25 09:09 07/02/25 20:33 Hydrocodone/Acetaminophen (*Crx) 5-325 Mg Tablet PO 1 tab Q4H PRN Administration Pain Rated 4-6 Hydrocodone Bitart/Acetaminophen 1 tab 06/29/25 09:09 07/01/25 20:53 Hydrocodone/Acetaminophen (*Crx) 10-325 Mg Tablet PO 1 tab Q4H PRN Administration Pain Rated 7-10 Aspirin 81 mg 06/29/25 21:00 07/02/25 20:33 Aspirin 81 Mg Enteric Tablet PO 81 mg Q12HR CRISTIAN Administration Atorvastatin Calcium 40 mg 06/29/25 09:00 07/02/25 12:36 Atorvastatin 40 Mg Tablet PO 40 mg DAILY CRISTIAN Administration Dextrose 12.5 gm 06/28/25 05:37 Dextrose 50% 25 Gm/50 Ml Syringe IV PUSH PRN PRN Hypoglycemia Protocol Ezetimibe 10 mg 06/29/25 09:00 07/02/25 09:24 Ezetimibe 10 Mg Tablet PO 10 mg DAILY CRISTIAN Administration Famotidine 20 mg 06/29/25 21:00 07/02/25 20:33 Famotidine 20 Mg Tablet PO 20 mg Q12HR CRISTIAN Administration Fentanyl Citrate 25 mcg 06/29/25 07:38 Fentanyl Citrate Inj (*Crx) 100 Mcg/2 Ml Vial IV PUSH Q2M PRN Pain Fish Oil 1 gm 06/29/25 09:00 07/02/25 09:23 [place] 3 Polyunsat Fatty Acids 1 Gm Cap PO 1 gm DAILY CRISTIAN Administration Glucagon 1 mg 06/28/25 05:37 Glucagon For Inj 1 Mg Vial IM PRN PRN Hypoglycemia Protocol Glucose 15 gm 06/28/25 05:37 Glucose Oral Gel 15 Gm Of Glucse In 37.5 Gm Tube PO PRN PRN Hypoglycemia Protocol Hydralazine HCl 10 mg 06/28/25 05:28 07/02/25 05:56 Hydralazine Hcl 20 Mg/Ml Vial IV PUSH 10 mg Q8H PRN Administration Blood Pressure - High Hydromorphone HCl 1 mg 06/29/25 09:09 Hydromorphone Hcl Inj (*Crx) 1 Mg/Ml Syr IV PUSH On Hold: 07/01/25 21:41 Q2H PRN Breakthrough Pain Rated 7-10 or NPO Hydromorphone HCl 0.5 mg 07/01/25 21:42 Hydromorphone Hcl Inj (*Crx) 1 Mg/Ml Syr IV PUSH Q3H PRN Pain Rated 7-10 Dextrose 1,000 mls @ 100 mls/hr 06/28/25 05:37 Dextrose 5% 1,000 Ml IVPB PRN PRN Hypoglycemia Protocol Ibuprofen 800 mg in 200 mls @ 400 mls/hr 06/29/25 09:09 Caldolor 800 Mg/200 Ml IVPB Q6H PRN Breakthrough Pain Rated 1-3 or NPO Ceftriaxone Sodium 1 gm/ 50 mls @ 100 mls/hr 07/02/25 08:00 07/02/25 09:54 Sodium Chloride IVPB Infused Q24H CRISTIAN Infusion Insulin Aspart 2 - 5 units 06/29/25 16:50 07/03/25 06:36 Insulin Aspart (*Bkc) 100 Units/Ml SUB-Q 2 units ACHS CRISTIAN Administration Protocol Losartan Potassium 25 mg 06/29/25 09:00 07/02/25 09:24 Losartan Potassium 25 Mg Tablet PO 25 mg DAILY CRISTIAN Administration Morphine Sulfate 2 mg 06/29/25 09:09 Morphine Sulfate (*Crx) 2 Mg/Ml Inj IV PUSH Q2H PRN Breakthrough Pain Rated 4-6 or NPO Multivitamins Therapeutic 1 tablet 06/29/25 09:00 07/02/25 09:24 Multivitamins Therapeutic Tab (*Bkc) PO 1 tablet DAILY CRISTIAN Administration Naloxone HCl 0.1 mg 06/29/25 09:09 Naloxone Hcl 0.4 Mg/Ml Vial IV PUSH Q2M PRN Opiate Reversal Ondansetron HCl 4 mg 06/29/25 07:38 Ondansetron Inj 4 Mg/2 Ml Vial IV PUSH ONCE PRN Nausea Ondansetron HCl 4 mg 06/29/25 09:09 Ondansetron Inj 4 Mg/2 Ml Vial IV PUSH Q4H PRN Nausea And Vomiting Polyethylene Glycol 17 gm 06/30/25 09:00 07/02/25 09:28 Polyethylene Glycol 3350 17 Gm Powd.Pack PO 17 gm QAM CRISTIAN Administration Senna/Docusate Sodium 2 tab 06/29/25 17:00 07/02/25 17:18 Senna/Docusate Sodium Tablet PO 2 tab BID CRISTIAN Administration Radiology Results: ITS Impressions Chest X-Ray 06/28/25 07:50 IMPRESSION: 1. Mild lingular atelectasis/scarring at the costophrenic angle. No other acute cardiopulmonary disease. Hip/Pelvis X-Ray 06/28/25 07:53 IMPRESSION: 1. 15 degrees varus attenuation: Intertrochanteric fracture the proximal left femur. Cervical Spine CT 06/28/25 08:23 IMPRESSION: HEAD: 1. No acute intracranial findings. 2. Scattered bilateral hyperdense lesions as before, not significantly changed. C-SPINE: 1. No acute fracture. Abdomen/Pelvis CT 06/28/25 13:52 IMPRESSION: 1. Cystic masses of the pancreas, largest measuring 2.2 cm. The differential diagnosis includes pseudocyst, intraductal papillary mucinous neoplasm (IPMN), mucinous cystic neoplasm (MCN), and the less common serous cystadenoma and neuroendocrine tumor. 2: Cholelithiasis with mild gallbladder wall enhancement. No biliary dilatation or cholecystic fluid. 3: Hypovascular lesions of the liver, most likely benign hemangiomas, largest measuring 2.8 cm. 4: Acute left femoral intertrochanteric fracture with varus angulation. Intraoperative X-Ray 07/01/25 12:05 IMPRESSION: 1. Fluoroscopy utilized during internal fixation of an intertrochanteric fracture the proximal femur which is now in near-anatomic alignment. Head CT 07/02/25 07:55 IMPRESSION: No significant interval change. Bilateral widespread hyperdense parenchymal fossae, grossly similar in number and distribution, likely related the patient's known diagnosis of amyloidosis. Head/Neck CTA 07/02/25 08:08 IMPRESSION: Unremarkable CTA of the head and neck. No evidence of cerebral artery aneurysm, stenosis or mass. *REFERENCES: NASCET CRITERIA: The degree of internal carotid artery (ICA) stenosis is based on NASCET criteria. Normal is no stenosis. Mild is less than 50% stenosis. Moderate is 50-69% stenosis. Severe is 70-99% stenosis. Total occlusion is no detectable patent lumen. Labs Labs: Laboratory Results - last 24 hr 07/02/25 07/02/25 07/02/25 07:46 07:49 11:24 WBC 5.4 RBC 3.02 L Hgb 9.4 L Hct 28.5 L MCV 94.4 MCH 31.1 MCHC 33.0 RDW 14.2 Plt Count 94 L MPV 11.8 H Immature Gran % (Auto) 0.6 H Neut % (Auto) 76.0 H Lymph % (Auto) 13.0 L [place] % (Auto) 7.6 Eos % (Auto) 2.4 Baso % (Auto) 0.4 Lymph # (Auto) 0.70 L [place] # (Auto) 0.4 Eos # (Auto) 0.1 Baso # (Auto) 0.0 Abs Immat Gran (auto) 0.03 Absolute Neuts (auto) 4.1 Absolute Nucleated RBC 0.000 Band Neutrophils % Not Reportable Nucleated RBC % 0.0 Platelet Estimate Decreased % Immature Plt Fraction 6.5 Schistocytes None seen Sodium 133 L Potassium 3.9 Chloride 105 Carbon Dioxide 25 Anion Gap 3 L BUN 18 H Creatinine 0.61 L Estim Creat Clear Calc 54 Estimated GFR > 60 Glucose 237 H POC Capillary Glucose 234 H Calcium 9.7 Magnesium 1.5 L Total Bilirubin 0.9 AST 32 ALT 17 Alkaline Phosphatase 55 Total Protein 5.4 L Albumin 2.8 L 07/02/25 07/02/25 07/03/25 16:17 20:13 05:34 WBC 5.0 RBC 2.97 L Hgb 9.2 L Hct 27.8 L MCV 93.6 MCH 31.0 MCHC 33.1 RDW 13.8 Plt Count 112 L MPV 11.2 H Immature Gran % (Auto) 0.4 Neut % (Auto) 72.4 Lymph % (Auto) 15.6 L [place] % (Auto) 7.8 Eos % (Auto) 3.4 Baso % (Auto) 0.4 Lymph # (Auto) 0.78 L [place] # (Auto) 0.4 Eos # (Auto) 0.2 Baso # (Auto) 0.0 Abs Immat Gran (auto) 0.02 Absolute Neuts (auto) 3.6 Absolute Nucleated RBC 0.000 Band Neutrophils % Nucleated RBC % 0.0 Platelet Estimate % Immature Plt Fraction Schistocytes Sodium 134 L Potassium 4.1 Chloride 103 Carbon Dioxide 26 Anion Gap 5 BUN 19 H Creatinine 0.66 L Estim Creat Clear Calc 51 Estimated GFR > 60 Glucose 206 H POC Capillary Glucose 322 H 306 H Calcium 9.9 Magnesium Total Bilirubin 1.1 AST 25 ALT 15 Alkaline Phosphatase 63 Total Protein 5.8 L Albumin 3.0 L 07/03/25 07/03/25 06:34 07:44 WBC RBC Hgb Hct MCV MCH MCHC RDW Plt Count MPV Immature Gran % (Auto) Neut % (Auto) Lymph % (Auto) [place] % (Auto) Eos % (Auto) Baso % (Auto) Lymph # (Auto) [place] # (Auto) Eos # (Auto) Baso # (Auto) Abs Immat Gran (auto) Absolute Neuts (auto) Absolute Nucleated RBC Band Neutrophils % Nucleated RBC % Platelet Estimate % Immature Plt Fraction Schistocytes Sodium Potassium Chloride Carbon Dioxide Anion Gap BUN Creatinine Estim Creat Clear Calc Estimated GFR Glucose POC Capillary Glucose 225 H 178 H Calcium Magnesium Total Bilirubin AST ALT Alkaline Phosphatase Total Protein Albumin Quality VTE Prophylaxis VTE prophylaxis: pharmacologic ordered
[2025-07-03] MEDS: MULTIVITAMINS THERAPEUTIC TAB (*BKC) 1 TABLET PO (09:41)
[2025-07-03] MEDS: SENNA/DOCUSATE SODIUM TABLET 2 TAB PO ×2 (09:41→16:37)
[2025-07-03] MEDS: cefTRIAXone 1 GM in SODIUM CHLORIDE 0.9% IV 50 ML 100 ML IVPB (09:41)
[2025-07-03] MEDS: ASPIRIN 81 MG ENTERIC TABLET PO ×2 (09:42→21:34)
[2025-07-03] MEDS: EZETIMIBE 10 MG TABLET PO (09:42)
[2025-07-03] MEDS: FAMOTIDINE 20 MG TABLET PO ×2 (09:42→21:34)
[2025-07-03] MEDS: LOSARTAN POTASSIUM 25 MG TABLET PO (09:42)
[2025-07-03] MEDS: OMEGA 3 POLYUNSAT FATTY ACIDS 1 GM CAP PO (09:42)
[2025-07-03] MEDS: ATORVASTATIN 40 MG TABLET PO (09:42)
[2025-07-03 14:00] VITALS: BP 121/47; PULSE 84; RESP 18; TEMP 36.2; O2SAT 100
[2025-07-03 21:18] VITALS: BP 161/63; PULSE 102; RESP 16; TEMP 36.6; O2SAT 93
[2025-07-04 06:00] VITALS: BP 159/78; PULSE 84; RESP 16; TEMP 36.7; O2SAT 92
[2025-07-04 06:20] LABS: Hematocrit 27.8 % (37.0-47.0); Hemoglobin 9.2 g/dL (12.0-15.0); Immature Granulocyte Percent A 0.7 % (0-0.5); Immature Platelet Fraction Pct 4.4 % (0.9-11.2); Lymphocytes Absolute Auto 1.05 K/mm3 (0.9-3.2); Mean Corpuscular HGB Conc 33.1 g/dl (32-36); Mean Corpuscular Hemoglobin 31.0 pg (26-34); Mean Corpuscular Volume 93.6 fl (80-100); Nucleated Red Blood Cells Absolute Auto 0.000 K/mm3 (0.0-0.012); Nucleated Red Blood Cells Perc 0.0 % (0.0-0.2); Platelet Count Result 124 k/mm3 (150-375); Red Blood Count 2.97 M/mm3 (4.2-5.4); White Blood Count 5.8 K/mm3 (4.5-10.0)
[2025-07-04 06:38] LABS: Alanine Aminotransferase 16 U/L (6-35); Albumin Level 3.0 g/dL (3.5-5.1); Alkaline Phosphatase 59 U/L (38-126); Anion Gap 3 mmol/L (4-12); Aspartate Amino Transferase 27 U/L (14-36); Bilirubin,Total 1.1 mg/dL (0.2-1.3); Blood Urea Nitrogen 20 mg/dL (7-17); Calcium 9.8 mg/dL (8.4-10.2); Carbon Dioxide 28 mmol/L (22-30); Chloride 101 mmol/L (98-107); Estimated CRCL calculation 51 ml/min; Estimated Glomerular Filt Rate > 60; Glucose 213 mg/dL (65-110); Potassium 4.6 mmol/L (3.4-5.0); Sodium 132 mmol/L (137-145); Total Protein 5.7 g/dL (6.3-8.2)
--- NOTE | 2025-07-04 07:42 | P.PNIM_ITS ---
Progress Note: A&P Assessment and Plan (1) Altered mental state: Code(s): R41.82 - Altered mental status, unspecified Status: Acute Assessment and Plan: -Rapid response called for AMS on evening of 07/01-->Difficulty following commands, drift in all 4 extremities, slow to respond. Again noted 07/02, no focal deficits noted. Daughter reports confusion ongoing for 1-2 years. - CT head no acute process - CTA head and neck with no LVO or significant stenosis -UA shows 3+ glucose, 2+ leukocyte esterase, 6-10 WBC - stared on Rocephin for empiric UTI coverage - MRI brain with 6 mm and 4 mm enhancing masses in the brain which may be metastatic disease or subacute infarcts. Per patient's daughter, patient sees Neurology (Laya Paniagua) at [facility] to monitor hemangiomas. Upon review of records and discussion with neurology, patient has history of multiple cavernous malformations. 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 Neurology recommended outpatient follow-up at [facility]. - continue neuro checks (2) Closed intertrochanteric fracture of left femur: Qualifiers: Encounter type: initial encounter Fracture alignment: nondisplaced Qualified Code(s): S72.145A - Nondisplaced intertrochanteric fracture of left femur, initial encounter for closed fracture Code(s): S72.142A - Displaced intertrochanteric fracture of left femur, initial encounter for closed fracture Status: Acute Assessment and Plan: -according the patient this was mechanical fall that occurred while using her walker. -orthopedic physician has been consulted and patient underwent left IT nail on 06/29 -continue with pain management. - follow-up with Dr. Betancourt in 2 weeks from surgery date. No DVT prophylaxis in setting of history of brain microhemorrhages. Ok to remove dressing leave open to air. -Working with CC regarding discharge planning - working on SNF placement * Accepted at [facility] - okay to discharge to facility once medically cleared (3) Urinary tract infection: Code(s): N39.0 - Urinary tract infection, site not specified Status: Acute Assessment and Plan: -UA: 3+ glucose, 2+ leukocyte esterase, 6-10 WBC -UC obtained on 07/01 -previous micro reviewed - E coli -started on Rocephin (4) Thrombocytopenia: Code(s): D69.6 - Thrombocytopenia, unspecified Status: Acute Assessment and Plan: -platelets shaila 68. However her platelets are typically low it looks like her baseline is somewhere around 102-130. 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 Managed on metformin, held. -Accu-Cheks every 6 hours with sliding scale insulin - BG trend high - start lantus 10u qHS, increase to moderate dose SSI and consider prandial insulin (7) Hypertension: Code(s): I10 - Essential (primary) hypertension Status: Acute Assessment and Plan: -continue losartan. BP occasionally elevated. Consider uptitrating losartan. -p.r.n. Hydralazine with parameters Subjective Date/time seen: 07/04/25 07:42 Interval history: Patient seen and examined at bedside. Patient alert and oriented x3, but appears to be hallucinating. Updated daughter over the phone. Review of Systems Review of Systems: All systems reviewed & are unremarkable except as noted in HPI and below Exam Narrative: General: NAD Eyes: EOMI ENT: neck supple Cardiovascular: Regular rate and rhythm Respiratory: Clear to auscultation, respirations even and unlabored on RA Gastrointestinal: Soft, non tender Genitourinary: no suprapubic tenderness Musculoskeletal: No edema, L hip dressing CDI Skin: warm, dry Neuro: Alert. Psych: Mood appropriate Objective Data Vital Signs Vital Signs: Vital Signs - 24 hr 07/03/25 09:24 07/03/25 14:00 07/03/25 21:18 Temperature 97.2 F L 97.9 F Pulse Rate 84 102 H Respiratory Rate 18 16 Blood Pressure 121/47 L 161/63 H Pulse Oximetry 100 93 Oxygen Delivery Room Air 07/04/25 06:00 Temperature 98.1 F Pulse Rate 84 Respiratory Rate 16 Blood Pressure 159/78 H Pulse Oximetry 92 Oxygen Delivery Intake/Output Intake/Output: Intake & Output 07/01/25 07/02/25 07/03/25 07/04/25 23:59 23:59 23:59 23:59 Intake Total 650 1220 1070 100 Output Total 300 1000 600 Balance 350 220 470 100 Meds/Results Medications: Active Medications Generic Name Dose Route Start Last Admin Trade Name Freq PRN Reason Stop Dose Admin Acetaminophen 500 mg 06/29/25 09:09 Acetaminophen 500 Mg Tablet PO Q6H PRN Pain Rated 1-3 Hydrocodone Bitart/Acetaminophen 1 tab 06/29/25 09:09 07/02/25 20:33 Hydrocodone/Acetaminophen (*Crx) 5-325 Mg Tablet PO 1 tab Q4H PRN Administration Pain Rated 4-6 Hydrocodone Bitart/Acetaminophen 1 tab 06/29/25 09:09 07/01/25 20:53 Hydrocodone/Acetaminophen (*Crx) 10-325 Mg Tablet PO 1 tab Q4H PRN Administration Pain Rated 7-10 Aspirin 81 mg 06/29/25 21:00 07/03/25 21:34 Aspirin 81 Mg Enteric Tablet PO 81 mg Q12HR CRISTIAN Administration Atorvastatin Calcium 40 mg 06/29/25 09:00 07/03/25 09:42 Atorvastatin 40 Mg Tablet PO 40 mg DAILY CRISTIAN Administration Dextrose 12.5 gm 06/28/25 05:37 Dextrose 50% 25 Gm/50 Ml Syringe IV PUSH PRN PRN Hypoglycemia Protocol Ezetimibe 10 mg 06/29/25 09:00 07/03/25 09:42 Ezetimibe 10 Mg Tablet PO 10 mg DAILY CRISTIAN Administration Famotidine 20 mg 06/29/25 21:00 07/03/25 21:34 Famotidine 20 Mg Tablet PO 20 mg Q12HR CRISTIAN Administration Fish Oil 1 gm 06/29/25 09:00 07/03/25 09:42 [place] 3 Polyunsat Fatty Acids 1 Gm Cap PO 1 gm DAILY CRISTIAN Administration Glucagon 1 mg 06/28/25 05:37 Glucagon For Inj 1 Mg Vial IM PRN PRN Hypoglycemia Protocol Glucose 15 gm 06/28/25 05:37 Glucose Oral Gel 15 Gm Of Glucse In 37.5 Gm Tube PO PRN PRN Hypoglycemia Protocol Hydralazine HCl 10 mg 06/28/25 05:28 07/02/25 05:56 Hydralazine Hcl 20 Mg/Ml Vial IV PUSH 10 mg Q8H PRN Administration Blood Pressure - High Dextrose 1,000 mls @ 100 mls/hr 06/28/25 05:37 Dextrose 5% 1,000 Ml IVPB PRN PRN Hypoglycemia Protocol Ceftriaxone Sodium 1 gm/ 50 mls @ 100 mls/hr 07/02/25 08:00 07/03/25 10:11 Sodium Chloride IVPB Infused Q24H CRISTIAN Infusion Insulin Aspart 3 - 6 units 07/04/25 08:00 Insulin Aspart (*Bkc) 100 Units/Ml SUB-Q TIDWM CRISTIAN Protocol Insulin Glargine 10 units 07/04/25 21:00 Insulin Glargine (*Bkc) 100 Units/Ml SUB-Q HS CRISTIAN Losartan Potassium 25 mg 06/29/25 09:00 07/03/25 09:42 Losartan Potassium 25 Mg Tablet PO 25 mg DAILY CRISTIAN Administration Multivitamins Therapeutic 1 tablet 06/29/25 09:00 07/03/25 09:41 Multivitamins Therapeutic Tab (*Bkc) PO 1 tablet DAILY CRISTIAN Administration Naloxone HCl 0.1 mg 06/29/25 09:09 Naloxone Hcl 0.4 Mg/Ml Vial IV PUSH Q2M PRN Opiate Reversal Ondansetron HCl 4 mg 06/29/25 07:38 Ondansetron Inj 4 Mg/2 Ml Vial IV PUSH ONCE PRN Nausea Ondansetron HCl 4 mg 06/29/25 09:09 Ondansetron Inj 4 Mg/2 Ml Vial IV PUSH Q4H PRN Nausea And Vomiting Polyethylene Glycol 17 gm 06/30/25 09:00 07/03/25 09:42 Polyethylene Glycol 3350 17 Gm Powd.Pack PO 17 gm QAM CRISTIAN Administration Senna/Docusate Sodium 2 tab 06/29/25 17:00 07/03/25 16:37 Senna/Docusate Sodium Tablet PO 2 tab BID CRISTIAN Administration Radiology Results: ITS Impressions Chest X-Ray 06/28/25 07:50 IMPRESSION: 1. Mild lingular atelectasis/scarring at the costophrenic angle. No other acute cardiopulmonary disease. Hip/Pelvis X-Ray 06/28/25 07:53 IMPRESSION: 1. 15 degrees varus attenuation: Intertrochanteric fracture the proximal left femur. Cervical Spine CT 06/28/25 08:23 IMPRESSION: HEAD: 1. No acute intracranial findings. 2. Scattered bilateral hyperdense lesions as before, not significantly changed. C-SPINE: 1. No acute fracture. Abdomen/Pelvis CT 06/28/25 13:52 IMPRESSION: 1. Cystic masses of the pancreas, largest measuring 2.2 cm. The differential diagnosis includes pseudocyst, intraductal papillary mucinous neoplasm (IPMN), mucinous cystic neoplasm (MCN), and the less common serous cystadenoma and neuroendocrine tumor. 2: Cholelithiasis with mild gallbladder wall enhancement. No biliary dilatation or cholecystic fluid. 3: Hypovascular lesions of the liver, most likely benign hemangiomas, largest measuring 2.8 cm. 4: Acute left femoral intertrochanteric fracture with varus angulation. Intraoperative X-Ray 07/01/25 12:05 IMPRESSION: 1. Fluoroscopy utilized during internal fixation of an intertrochanteric fracture the proximal femur which is now in near-anatomic alignment. Head CT 07/02/25 07:55 IMPRESSION: No significant interval change. Bilateral widespread hyperdense parenchymal fossae, grossly similar in number and distribution, likely related the patient's known diagnosis of amyloidosis. Head/Neck CTA 07/02/25 08:08 IMPRESSION: Unremarkable CTA of the head and neck. No evidence of cerebral artery aneurysm, stenosis or mass. *REFERENCES: NASCET CRITERIA: The degree of internal carotid artery (ICA) stenosis is based on NASCET criteria. Normal is no stenosis. Mild is less than 50% stenosis. Moderate is 50-69% stenosis. Severe is 70-99% stenosis. Total occlusion is no detectable patent lumen. Brain MRI 07/03/25 09:35 IMPRESSION: 1. 6 mm and 4 mm enhancing masses in the brain, which may be metastatic disease or subacute infarcts. 2. Innumerable scattered foci of susceptibility artifact throughout the brain, consistent with foci of old hemorrhage. The number of foci is worsened from 02/16/2018, but this exam uses a sequence that is more sensitive than the sequence on the prior exam. Labs Labs: Laboratory Results - last 24 hr 07/03/25 07/03/25 07/03/25 07:44 11:49 16:50 WBC RBC Hgb Hct MCV MCH MCHC RDW Plt Count MPV Immature Gran % (Auto) Neut % (Auto) Lymph % (Auto) [place] % (Auto) Eos % (Auto) Baso % (Auto) Lymph # (Auto) [place] # (Auto) Eos # (Auto) Baso # (Auto) Abs Immat Gran (auto) Absolute Neuts (auto) Absolute Nucleated RBC Nucleated RBC % % Immature Plt Fraction Sodium Potassium Chloride Carbon Dioxide Anion Gap BUN Creatinine Estim Creat Clear Calc Estimated GFR Glucose POC Capillary Glucose 178 H 317 H 289 H Calcium Total Bilirubin AST ALT Alkaline Phosphatase Total Protein Albumin 07/03/25 07/03/25 07/04/25 20:15 21:30 06:04 WBC 5.8 RBC 2.97 L Hgb 9.2 L Hct 27.8 L MCV 93.6 MCH 31.0 MCHC 33.1 RDW 14.0 Plt Count 124 L MPV 11.1 H Immature Gran % (Auto) 0.7 H Neut % (Auto) 66.7 Lymph % (Auto) 18.2 L [place] % (Auto) 10.6 H Eos % (Auto) 3.3 Baso % (Auto) 0.5 Lymph # (Auto) 1.05 [place] # (Auto) 0.6 Eos # (Auto) 0.2 Baso # (Auto) 0.0 Abs Immat Gran (auto) 0.04 H Absolute Neuts (auto) 3.9 Absolute Nucleated RBC 0.000 Nucleated RBC % 0.0 % Immature Plt Fraction 4.4 Sodium 132 L Potassium 4.6 Chloride 101 Carbon Dioxide 28 Anion Gap 3 L BUN 20 H Creatinine 0.66 L Estim Creat Clear Calc 51 Estimated GFR > 60 Glucose 213 H POC Capillary Glucose 406 H 300 H Calcium 9.8 Total Bilirubin 1.1 AST 27 ALT 16 Alkaline Phosphatase 59 Total Protein 5.7 L Albumin 3.0 L Quality VTE Prophylaxis VTE prophylaxis: mechanical ordered
--- NOTE | 2025-07-04 09:24 | PCNFU ---
Nutrition Follow-Up Complete: Inadequate oral intake related to NPO, loss of appetite as evidenced by diet orders Diet advancement - Goal is met Intakes >50% when diet is advanced - Goal is being met. Continue same goal Goal: Pt current nutrition is Diabetic consistent carbs. Glucerna BID (220 kcal, 10 g protein). Nutrition recommendation: No new recommendations. Continue current nutrition care plan and orders. Agree with orders Last recorded weight is 70.3 kg. Bowel Motility: No BMs are charted. Bowel regimen in place Labs Reviewed: Hgb 9.2, Hct 27.8, Alb 3.0, Na 132, BUN 20, Cre 0.66 Meds Noted: Senna, miralax, novolog, lantus, pepcid, zofran Skin: No skin issues noted Additional Notes: Appetite is good, eating 100% meals. Discharge to SNF. Continue current plan and orders. Monitoring intakes, weights, labs, diet orders, plan of care Follow up in 5 days
--- NOTE | 2025-07-04 09:42 | PCPTNOTE ---
Attempted to see patient for PT, however patient was working with OT.
[2025-07-04] MEDS: ASPIRIN 81 MG ENTERIC TABLET PO (09:52)
[2025-07-04] MEDS: OMEGA 3 POLYUNSAT FATTY ACIDS 1 GM CAP PO (09:52)
[2025-07-04] MEDS: ATORVASTATIN 40 MG TABLET PO (09:52)
[2025-07-04] MEDS: EZETIMIBE 10 MG TABLET PO (09:52)
[2025-07-04] MEDS: SENNA/DOCUSATE SODIUM TABLET 2 TAB PO ×2 (09:52→17:29)
[2025-07-04] MEDS: FAMOTIDINE 20 MG TABLET PO ×2 (09:52→20:28)
[2025-07-04] MEDS: MULTIVITAMINS THERAPEUTIC TAB (*BKC) 1 TABLET PO (09:53)
[2025-07-04] MEDS: cefTRIAXone 1 GM in SODIUM CHLORIDE 0.9% IV 50 ML 100 ML IVPB (09:53)
[2025-07-04] MEDS: HYDROcodone/acetaminophen (*CRX) 10-325 MG TABLET 1 TAB PO (09:53)
[2025-07-04] MEDS: LOSARTAN POTASSIUM 25 MG TABLET PO (09:53)
[2025-07-04] MEDS: INSULIN ASPART (*BKC) 100 UNITS/ML SUB-Q ×3 (09:54→17:30)
--- NOTE | 2025-07-04 12:05 | P.CONNEU_ITS ---
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: Code(s): E85.3 - Secondary systemic amyloidosis; I68.0 - Cerebral amyloid angiopathy Status: Acute (4) TIA (transient ischemic attack): Code(s): G45.9 - Transient cerebral ischemic attack, unspecified Status: Acute (5) Pancreatic cyst: Code(s): K86.2 - Cyst of pancreas Status: Acute (6) DM2 (diabetes mellitus, type 2): Code(s): E11.9 - Type 2 diabetes mellitus without complications Status: Acute (7) Hyperlipidemia: Code(s): E78.5 - Hyperlipidemia, unspecified Status: Acute (8) Hypertension: Code(s): I10 - Essential (primary) hypertension Status: Acute Plan According to the records or documentation that we see from neurologist at [facility] she has been known to have cerebral amyloidosis and transient ischemic attack and some vascular malformations or masses which seemed to be similar to what we see in our current MRI of the brain. CT angiogram head and neck did not show any significant Large vessel occlusion or carotid artery narrowing. With the patient has had a TIA or a partial complex seizure followed by confusional state or metabolic encephalopathy since he is going through quite a few things including urinary tract infection I would suggest continued observation and if she has any further spells and if not explained by metabolic problems we may consider use of anticonvulsant. She is on low-dose aspirin which may be continued at 81 mg daily for prevention of deep vein thrombosis however as per the notes from stroke clinic she should not take this because of the micro bleeds from cerebral amyloidosis and the vascular malformations. It should be noted that the CT scan of the brain and MR I of the brain did not show evidence for new bleed or bleeding from the vascular malformations. No acute changes were observed and hence I would suggest to defer this to follow-up with [facility] once again along with the films done here comparison purposes. We also do not have the actual films from [facility] to compare with our current MRI films. The patient also family with the main cancer center where she is followed of pancytopenia and I believe that spent caring cyst has also been raised as a potential for any malignancy however it is thought to probably benign once again and opinion from oncologist may be helpful particularly since her radiologist have raise possibility of metastasis. The description from the Stroke Clinic of the MRI is somewhat similar to our current findings. Consult date: 07/04/25 HPI: Jorge Case is a 84 year old femaleWho came in on 06/28/2025 after having a fall. Patient has been using a walker for last 2 years. She also follows up with a neurologist at [facility] Stroke [facility]. The report from [facility] became available to what is the later part of this consultation. A from the fall she had a hip fracture and also there was some injury to the head and neck. She had a bump on the back side of the head on the left side. CT scan of brain was performed which did not show any acute findings however several old findings consistent with the vascular malformations and cerebral amyloidosis were noted. Subsequently MRI of the brain was also performed and once again these findings were seen wears a no new development. No evidence for hemorrhage from the malformations were noted. Patient suddenly became confused 2 days ago. She had some difficulty speech and then she improved. Due to the amyloidosis he is not allowed to take antiplatelets and she is on a statin. For due to the hip surgery she is on aspirin 81 mg twice a day for DVT prophylaxis. Patient denies any headache or any difficulty speech or swallowing. She does admit that she does not have good memory and her daughter knows most of the things. Her daughter was not available at this time however she has mention to the staff members that she has been watched for hemangiomas [facility]. She also has thrombocytopenia for which she has been seen at [facility] by facility administrator. 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 She is . Code status: Full code Smoking status: Former smoker Alcohol intake: never Substance use: never Lack of Transportation: No Lack of Food: Never True Current Housing: I Have Housing Concerned About Future Housing: No Difficulty Paying Gas/Electric Bills: No Difficulty Paying for Meds: No Currently Unemployed: No Education: High School Diploma/GED Difficulty w/ Childcare or Family Care: No Spiritual care concerns: No Meds Home Medications and Allergies Home Medications ?Medication ?Instructions ?Recorded ?Confirmed ?Type atorvastatin 40 mg tablet 40 mg PO DAILY 04/27/2106/17 History ezetimibe 10 mg tablet 10 mg PO DAILY 04/27/2106/17 History losartan 25 mg tablet 25 mg PO DAILY 04/27/2106/17 History metformin 500 mg tablet 500 mg PO BID 04/27/2106/28 History multivitamin 1 tablet PO DAILY 04/27/21 0 06/28/25 History omega-3 fatty acids 1,000 mg 1,200 mg PO DAILY 1 06/28/25 History capsule (Fish Oil Concentrate) diclofenac sodium 75 mg PO 07/13/21 History tablet,delayed release Allergies Allergy/AdvReac Type Severity Reaction Status Date / Time No Known Allergies Allergy Verified 06/28/25 03:59 Vital Signs Vital Signs - 24 hr 07/03/25 14:00 07/03/25 21:18 07/04/25 06:00 Temperature 97.2 F L 97.9 F 98.1 F Pulse Rate 84 102 H 84 Respiratory Rate 18 16 16 Blood Pressure 121/47 L 161/63 H 159/78 H Pulse Oximetry 100 93 92 Oxygen Delivery 07/04/25 09:50 Temperature Pulse Rate Respiratory Rate Blood Pressure Pulse Oximetry Oxygen Delivery Room Air Exam 2 Narrative: fully conscious alert, oriented to self time place and person. No aphasia or dysarthria. Mild cognitive impairment. Examination head and neck shows a right carotid bruit there is a mild swelling in the left occipital area no active bleeding. Cranial nerves on individual testing show pupils were equal react to light. Visual martínez by confrontation are normal. There is no facial asymmetry. Facial sensation intact. Other cranial nerves within normal limits. Motor system normal power and tone in both upper and lower limbs. Deep tendon reflexes did not show any significant asymmetry pre no involuntary movements were seen. No tremor or cogwheeling. Results Labs 07/04/25 06:04 07/04/25 06:04 Labs: Short CBC 07/04/25 Range/Units 06:04 WBC 5.8 (4.5-10.0) K/mm3 Hgb 9.2 L (12.0-15.0) g/dL Hct 27.8 L (37.0-47.0) % Plt Count 124 L (150-375) k/mm3 BMP 07/04/25 06:04 Sodium 132 L Potassium 4.6 Chloride 101 Carbon Dioxide 28 BUN 20 H Creatinine 0.66 L Glucose 213 H Calcium 9.8 Liver Function 07/04/25 Range/Units 06:04 Total Bilirubin 1.1 (0.2-1.3) mg/dL AST 27 (14-36) U/L ALT 16 (6-35) U/L Alkaline Phosphatase 59 (38-126) U/L Albumin 3.0 L (3.5-5.1) g/dL EXAMINATION: MR brain/brain stem wo/w con DATE: 07/03/2025 09:33 INDICATION: Slurred speech. TECHNIQUE: Magnetic resonance imaging (MRI) of the brain and brainstem was performed without and with 14 mL MultiHance intravenous contrast. COMPARISON: Brain MRI 02/16/2018, head CT 07/01/2025 FINDINGS: There are innumerable scattered foci of susceptibility artifact throughout the brain. There are scattered areas of nonspecific increased T2- weighted signal intensity in the cerebral white matter, which is within normal limits for the patient's age. There is no acute ischemic infarct. There is a 6 mm enhancing mass in left parietal lobe. There is a 4 mm enhancing mass in left frontal lobe. The ventricles are normal in size. The paranasal sinuses are clear. There are likely changes of ocular lens replacement surgeries. There are small bilateral mastoid effusions. IMPRESSION: 1. 6 mm and 4 mm enhancing masses in the brain, which may be metastatic disease or subacute infarcts. 2. Innumerable scattered foci of susceptibility artifact throughout the brain, consistent with foci of old hemorrhage. The number of foci is worsened from 02/16/2018, but this exam uses a sequence that is more sensitive than the sequence on the prior exam. Reviewed, dictated and finalized at location [address] [place] [address] [facility] [address] [place] [address] CT Scan Report Signed Patient: Jorge Case : 1940 MR#: [id number] Age: 84 Acct:[id number] Loc: [id number] ADM Date: 06/29/25Attending Dr: Yamil Mckenzie M.D. Ordering Physician: Brittani Albarran APRN Date of Service: 07/01/25 Procedure(s): CTA brain carotid Accession Number(s): [id number] cc: Yamil Mckenzie MD; Gali, Bereket De La Torre MD; Brittani Albarran APRN~ EXAM: CTA brain carotid - 07/01/2025 22:14 CDT History: 84 years old Female with stroke TECHNIQUE: CT scan of the head without contrast. Subsequently CTA of the head and neck with intravenous contrast was performed. 3-D reconstructed images of cerebral artery circulation were generated on a swift[employer] workstation. Automatic exposure control was used for this study. CONTRAST: 100 cc of Omnipaque 350 was used for this study COMPARISON: None available. FINDINGS: Normal branching pattern of the thoracic aorta. Great vessels of the neck are patent. RIGHT ANTERIOR CIRCULATION: Innominate and right common carotid artery is normal in caliber. No significant stenosis at the carotid bifurcation by NASCET criteria. Cervical segment of the internal carotid artery is normal in caliber. Cavernous and supraclinoid segments of the internal carotid artery patent. M1 segment and middle cerebral artery bifurcation are unremarkable. A1 segment, anterior communicating artery complex and A2 segment are within normal limits. LEFT ANTERIOR CIRCULATION: Left common carotid artery is normal in caliber. No significant stenosis at the carotid bifurcation by NASCET criteria. Cervical segment of the internal carotid artery is normal in caliber. Cavernous and supraclinoid segments of the internal carotid artery patent. M1 segment and middle cerebral artery bifurcation are unremarkable. A1 segment, anterior communicating artery complex and A2 segment are within normal limits. POSTERIOR CIRCULATION: Vertebral arteries are codominant and patent throughout the neck. Intradural vertebral arteries are normal in caliber and terminate as the basilar artery. Basilar artery is normal in caliber. P1 and P2 segments of the posterior cerebral arteries are normal in caliber. OTHER: Multilevel degenerative changes of the visualized cervical spine. Visualized lungs are clear. IMPRESSION: Unremarkable CTA of the head and neck. No evidence of cerebral artery aneurysm, stenosis or mass. Imaging Attestation: I personally reviewed and interpreted this imaging study as follows: ( MRI of the brain and a CT scan of the brain and CT angiogram of the head and neck) My impression: multiple areas of microhemorrhages noted on the MRI as well as a moderate size possible vascular malformation to the right of the lateral ventricle and also at least 1 more which enhances on the left side. No evidence for new stroke. Micro hemorrhages consistent with cerebral amyloidosis were noted. Radiologist's impression: Same
[2025-07-04 14:00] VITALS: BP 142/74; PULSE 81; RESP 16; TEMP 36.7; O2SAT 95
[2025-07-04] MEDS: ACETAMINOPHEN 325 MG TABLET 650 MG PO (20:28)
[2025-07-04] MEDS: oxyCODONE HCL (*CRX) 5 MG TAB IR PO (20:28)
[2025-07-04] MEDS: INSULIN GLARGINE (*BKC) 100 UNITS/ML 10 UNITS SUB-Q (20:39)
[2025-07-04 21:39] VITALS: BP 167/59; PULSE 101; RESP 14; TEMP 36.8; O2SAT 91
[2025-07-05 06:00] VITALS: BP 150/62; PULSE 79; RESP 12; TEMP 36.8; O2SAT 100
[2025-07-05 07:22] LABS: Alanine Aminotransferase 17 U/L (6-35); Albumin Level 3.1 g/dL (3.5-5.1); Alkaline Phosphatase 67 U/L (38-126); Anion Gap 4 mmol/L (4-12); Aspartate Amino Transferase 29 U/L (14-36); Bilirubin,Total 1.1 mg/dL (0.2-1.3); Blood Urea Nitrogen 23 mg/dL (7-17); Calcium 10.0 mg/dL (8.4-10.2); Carbon Dioxide 28 mmol/L (22-30); Chloride 101 mmol/L (98-107); Estimated CRCL calculation 45 ml/min; Estimated Glomerular Filt Rate > 60; Glucose 200 mg/dL (65-110); Potassium 4.4 mmol/L (3.4-5.0); Sodium 133 mmol/L (137-145); Total Protein 5.9 g/dL (6.3-8.2)
[2025-07-05 08:00] LABS: Hematocrit 28.6 % (37.0-47.0); Hemoglobin 9.4 g/dL (12.0-15.0); Immature Granulocyte Percent A 1.5 % (0-0.5); Lymphocytes Absolute Auto 1.02 K/mm3 (0.9-3.2); Mean Corpuscular HGB Conc 32.9 g/dl (32-36); Mean Corpuscular Hemoglobin 30.9 pg (26-34); Mean Corpuscular Volume 94.1 fl (80-100); Nucleated Red Blood Cells Absolute Auto 0.000 K/mm3 (0.0-0.012); Nucleated Red Blood Cells Perc 0.0 % (0.0-0.2); Platelet Count Result 129 k/mm3 (150-375); Red Blood Count 3.04 M/mm3 (4.2-5.4); White Blood Count 6.2 K/mm3 (4.5-10.0)
[2025-07-05] MEDS: MULTIVITAMINS THERAPEUTIC TAB (*BKC) 1 TABLET PO (09:21)
[2025-07-05] MEDS: OMEGA 3 POLYUNSAT FATTY ACIDS 1 GM CAP PO (09:21)
[2025-07-05] MEDS: FAMOTIDINE 20 MG TABLET PO (09:22)
[2025-07-05] MEDS: ACETAMINOPHEN 325 MG TABLET 650 MG PO (09:22)
[2025-07-05] MEDS: ATORVASTATIN 40 MG TABLET PO (09:22)
[2025-07-05] MEDS: EZETIMIBE 10 MG TABLET PO (09:22)
[2025-07-05] MEDS: LOSARTAN POTASSIUM 25 MG TABLET PO (09:22)
[2025-07-05] MEDS: SENNA/DOCUSATE SODIUM TABLET 2 TAB PO (09:23)
[2025-07-05] MEDS: INSULIN ASPART (*BKC) 100 UNITS/ML SUB-Q ×4 (09:36→12:18)
[2025-07-05 12:45] LABS: SARS-CoV-2 RNA PCR Negative (Negative)
--- NOTE | 2025-07-05 12:54 | PM.DS ---
DS: Admitting Diagnosis Discharge Date 07/05/25 Admitting Diagnosis - altered mental status - closed intertrochanteric fracture of the left femur - UTI - thrombocytopenia - HLD - T2DM - HTN DS: Discharge Diagnosis Discharge Diagnosis (1) Cerebral vascular malformation: Code(s): Q28.3 - Other malformations of cerebral vessels Status: Acute (2) Diabetes mellitus: Code(s): E11.9 - Type 2 diabetes mellitus without complications Status: Acute (3) Altered mental state: Code(s): R41.82 - Altered mental status, unspecified Status: Acute (4) Pancreatic cyst: Code(s): K86.2 - Cyst of pancreas Status: Acute (5) Hypertension: Code(s): I10 - Essential (primary) hypertension Status: Acute (6) Thrombocytopenia: Code(s): D69.6 - Thrombocytopenia, unspecified Status: Acute (7) DM2 (diabetes mellitus, type 2): Code(s): E11.9 - Type 2 diabetes mellitus without complications Status: Acute (8) Hyperlipidemia: Code(s): E78.5 - Hyperlipidemia, unspecified Status: Acute (9) Closed intertrochanteric fracture of left femur: Qualifiers: Encounter type: initial encounter Fracture alignment: nondisplaced Qualified Code(s): S72.145A - Nondisplaced intertrochanteric fracture of left femur, initial encounter for closed fracture Code(s): S72.142A - Displaced intertrochanteric fracture of left femur, initial encounter for closed fracture Status: Acute DS: Summary Hospital Course Reason for hospitalization: - altered mental status - closed intertrochanteric fracture of the left femur - UTI - thrombocytopenia - HLD - T2DM - HTN Hospital Course: Patient is an 84-year-old female with past medical history of T2DM, HLD, hypertension who presented to the emergency department with a fall. Abnormal labs include a white count of 4.2 , platelet count of 87, sodium of 136, calcium of 10.7 and glucose of 202. X-ray of the hip and pelvis 2-3 views was read per radiologist as acute intertrochanteric fracture of the proximal left femur. CT of the C-spine without contrast was read as no acute fracture or subluxation of the cervical spine. CT of the head was read as no acute intracranial hemorrhage. Patient was admitted for further management of left hip fracture. Patient underwent left IM nail insertion 06/[address] Betancourt. Initially started on aspirin for DVT prophylaxis which was subsequently stopped due to patient's history of brain microhemorrhages. TT/OT recommended care home facility. She will follow up with Orthopedic surgery in 2 weeks from surgery date and remain weight-bearing as tolerated. Pain control was continued on discharge. Postoperative course was complicated by periods of increasing confusion. Patient was a rapid response for altered mental status on 07/01. CT head and CTA head and neck did not show any acute process. UA was initially concerning for infection, but urine culture showed only urogenital nolan so antibiotics were stopped. MRI brain was obtained which showed 6 mm and 4 mm enhancing masses in the brain which may be metastatic disease or subacute infarcts. Patient sees Neurology (Laya Paniagua) at [facility]. Upon review of records and discussion with neurology, patient has history of multiple cavernous malformations. 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 Neurology [facility]. On discharge, patient was alert and oriented x3 and at her baseline per daughter. Suspect confusion may have been related to opiates which were weaned down. Patient also noted to have thrombocytopenia with platelets trending as low as 68. 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 Platelets 129 day of discharge. Repeat CBC in 3 days at SNF. Patient with history of diabetes with most recent A1c 7.2. Noted hyperglycemia while admitted. Was started on basal bolus regimen with some improvement. On discharge, will resume metformin and continue sliding scale insulin at SNF. Instructed SNF to consider titrating medications as needed if blood sugars remain high on discharge. Losartan was continued for hypertension. BP was occasionally high. SNF encouraged to up titrate losartan if BP trend remains high on discharge. Patient was discharged to SNF in stable condition. Time Spent with Patient Time attestation: Total time spent providing and/or coordinating discharge services: Time spent: Greater than 30 minutes Exam Narrative: General: NAD Eyes: EOMI ENT: neck supple Cardiovascular: Regular rate and rhythm Respiratory: Clear to auscultation, respirations even and unlabored on RA Gastrointestinal: Soft, non tender Genitourinary: no suprapubic tenderness Musculoskeletal: No edema, left hip incision with minimal surrounding bruising, surgical dressing clean dry and intact Skin: warm, dry Neuro: Alert. Psych: Mood appropriate DS: Data Data Completed and Pending Completed studies during hospitalization: ITS Impressions Chest X-Ray 06/28/25 07:50 IMPRESSION: 1. Mild lingular atelectasis/scarring at the costophrenic angle. No other acute cardiopulmonary disease. Hip/Pelvis X-Ray 06/28/25 07:53 IMPRESSION: 1. 15 degrees varus attenuation: Intertrochanteric fracture the proximal left femur. Cervical Spine CT 06/28/25 08:23 IMPRESSION: HEAD: 1. No acute intracranial findings. 2. Scattered bilateral hyperdense lesions as before, not significantly changed. C-SPINE: 1. No acute fracture. Head CT 06/28/25 08:23 IMPRESSION: HEAD: 1. No acute intracranial findings. 2. Scattered bilateral hyperdense lesions as before, not significantly changed. C-SPINE: 1. No acute fracture. Abdomen/Pelvis CT 06/28/25 13:52 IMPRESSION: 1. Cystic masses of the pancreas, largest measuring 2.2 cm. The differential diagnosis includes pseudocyst, intraductal papillary mucinous neoplasm (IPMN), mucinous cystic neoplasm (MCN), and the less common serous cystadenoma and neuroendocrine tumor. 2: Cholelithiasis with mild gallbladder wall enhancement. No biliary dilatation or cholecystic fluid. 3: Hypovascular lesions of the liver, most likely benign hemangiomas, largest measuring 2.8 cm. 4: Acute left femoral intertrochanteric fracture with varus angulation. Intraoperative X-Ray 07/01/25 12:05 IMPRESSION: 1. Fluoroscopy utilized during internal fixation of an intertrochanteric fracture the proximal femur which is now in near-anatomic alignment. Head CT 07/02/25 07:55 IMPRESSION: No significant interval change. Bilateral widespread hyperdense parenchymal fossae, grossly similar in number and distribution, likely related the patient's known diagnosis of amyloidosis. Head/Neck CTA 07/02/25 08:08 IMPRESSION: Unremarkable CTA of the head and neck. No evidence of cerebral artery aneurysm, stenosis or mass. *REFERENCES: NASCET CRITERIA: The degree of internal carotid artery (ICA) stenosis is based on NASCET criteria. Normal is no stenosis. Mild is less than 50% stenosis. Moderate is 50-69% stenosis. Severe is 70-99% stenosis. Total occlusion is no detectable patent lumen. Brain MRI 07/03/25 09:35 IMPRESSION: 1. 6 mm and 4 mm enhancing masses in the brain, which may be metastatic disease or subacute infarcts. 2. Innumerable scattered foci of susceptibility artifact throughout the brain, consistent with foci of old hemorrhage. The number of foci is worsened from 02/16/2018, but this exam uses a sequence that is more sensitive than the sequence on the prior exam. Labs on day of discharge: Labs from last 24 hours 07/05/25 07/05/25 07/05/25 12:01 11:55 07:42 WBC RBC Hgb Hct MCV MCH MCHC RDW Plt Count MPV Immature Gran % (Auto) Neut % (Auto) Lymph % (Auto) [place] % (Auto) Eos % (Auto) Baso % (Auto) Lymph # (Auto) [place] # (Auto) Eos # (Auto) Baso # (Auto) Abs Immat Gran (auto) Absolute Neuts (auto) Absolute Nucleated RBC Nucleated RBC % Sodium Potassium Chloride Carbon Dioxide Anion Gap BUN Creatinine Estim Creat Clear Calc Estimated GFR Glucose POC Capillary Glucose 231 H 213 H Calcium Total Bilirubin AST ALT Alkaline Phosphatase Total Protein Albumin SARS-CoV-2 RNA (RT-PCR) Negative 07/05/25 07/04/25 07/04/25 06:17 20:25 16:31 WBC 6.2 RBC 3.04 L Hgb 9.4 L Hct 28.6 L MCV 94.1 MCH 30.9 MCHC 32.9 RDW 14.3 Plt Count 129 L MPV 11.3 H Immature Gran % (Auto) 1.5 H Neut % (Auto) 67.6 Lymph % (Auto) 16.5 L [place] % (Auto) 10.5 H Eos % (Auto) 3.4 Baso % (Auto) 0.5 Lymph # (Auto) 1.02 [place] # (Auto) 0.7 H Eos # (Auto) 0.2 Baso # (Auto) 0.0 Abs Immat Gran (auto) 0.09 H Absolute Neuts (auto) 4.2 Absolute Nucleated RBC 0.000 Nucleated RBC % 0.0 Sodium 133 L Potassium 4.4 Chloride 101 Carbon Dioxide 28 Anion Gap 4 BUN 23 H Creatinine 0.75 Estim Creat Clear Calc 45 Estimated GFR > 60 Glucose 200 H POC Capillary Glucose 317 H 307 H Calcium 10.0 Total Bilirubin 1.1 AST 29 ALT 17 Alkaline Phosphatase 67 Total Protein 5.9 L Albumin 3.1 L SARS-CoV-2 RNA (RT-PCR) Discharge Plan Discharge Attending physician on discharge: Keith Cabrera Consulting providers: Ryan Betancourt; Gurmeet Whitaker; Tiffany Elizabeth; Arelis Robertson; Jeffery Perez Discharging Clinician: Arelis Robertson Patient Disposition: SNF Activity: as tolerated Diet: diabetic Discharge Instructions: Leave incision open to air and cleanse daily. Follow-up with Dr. Betancourt in 2 weeks from surgery date (06/30). Patient is not on DVT prophylaxis due to history of microhemorrhages in her brain. Patient needs to follow-up with her neurologist at [facility] in 2-4 weeks to review/compare MRI brain results. Patient has history of microhemorrhages/cavernous malformations. Patient needs to follow-up with her hammer driver/oncologist to discuss follow-up for pancreatic cyst found on imaging. Low suspicion for malignancy, but needs more imaging. Check CBC and CMP in 3 days and weekly x 4 weeks. Patient blood sugars have been running high despite an A1c of only 7.2. Recommend utilizing sliding scale insulin and continuing metformin. Accu checks qACHS. glucose < 70 mg/dl Follow hypoglycemia orders ? glucose 70-200 mg/dl No additional insulin ? glucose 201-250 mg/dl 3 units sub-Q ? glucose 251-300 mg/dl 4 units sub-Q ? glucose 301-350 mg/dl 5 units sub-Q ? glucose 351-400 mg/dl 6 units sub-Q ? glucose > 400 mg/dl Call MD Continue bowel regimen. Wean narcotics as able. Consider addition of medications if needed. BP running occasionally high. Consider increasing losartan. Patient Language: Mozambican Stand Alone Forms: General Discharge Information Follow-up/Referrals: Ryan Betancourt MD [Physician, Orthopedics] - Call for Appointment Referral Note: 2 weeks from surgery (06/30) Discharge Medications: New sennosides-docusate sodium [Senokot-S] 8.6-50 mg Tablet 2 tab PO BID 30 Days Qty: 60 0RF famotidine 20 mg Tablet 20 mg PO Q12HR PRN (Reason: (Drug) Ingestion) 30 Days Qty: 60 0RF acetaminophen 325 mg Tablet 650 mg PO Q6H 14 Days Qty: 112 0RF polyethylene glycol 3350 [Miralax] 17 gram Powder In Packet 17 g PO QAM 30 Days Qty: 30 0RF oxycodone 5 mg Tablet 5 mg PO Q6H PRN (Reason: Pain Rated 7-10) 3 Days Qty: 12 0RF insulin aspart U-100 100 unit/mL solution 1 sliding scale dose subcut USEASDIRECTD Qty: 10 0RF Rx Instructions: glucose < 70 mg/dl Follow hypoglycemia orders glucose 70-200 mg/dl No additional insulin glucose 201-250 mg/dl 3 units sub-Q glucose 251-300 mg/dl 4 units sub-Q glucose 301-350 mg/dl 5 units sub-Q glucose 351-400 mg/dl 6 units sub-Q glucose > 400 mg/dl Call MD Continued losartan 25 mg tablet 25 mg PO DAILY metformin 500 mg tablet 500 mg PO BID omega-3 fatty acids [Fish Oil Concentrate] 1,000 mg capsule 1,200 mg PO DAILY multivitamin Tablet 1 tablet PO DAILY atorvastatin 40 mg tablet 40 mg PO DAILY ezetimibe 10 mg tablet 10 mg PO DAILY Discontinued diclofenac sodium 75 mg tablet,delayed release (DR/EC) PO Date of admission: 06/29/25 04:04 Primary Care Provider: Gali,Bereket De La Torre Admitting Provider: Yamil Mckenzie Attending physician on admission: Yamil Mckenzie Condition: Stable
[2025-07-05 14:26] VITALS: BP 114/52; PULSE 73; RESP 17; TEMP 36.4; O2SAT 99
== END 2025-07-05 15:26 | DRG 480 ==
LOC: ANHED 06-28 03:01 → ANH3MEDSUR 06-28 13:43
PROVIDERS: General Practice; Internal Medicine; Nurse Practitioner; Nurse Practitioner Gerontology; Orthopaedic Surgery; Physician Assistant; Admitting Provider Family Medicine; Emergency Provider Physician Assistant; PCP Internal Medicine; Visit Provider Physician Assistant
PROC: 0QS736Z Reposition Left Upper Femur with Intramedullary Internal Fixation Device, Percutaneous Approach (ICD-10-PCS; CPT 27245; principal; 2025-06-29 07:30)
DX: S72.142A Displaced intertrochanteric fracture of left femur, initial encounter for closed fracture (principal); Q28.3 Other malformations of cerebral vessels; K86.2 Cyst of pancreas; D69.3 Immune thrombocytopenic purpura; E85.3 Secondary systemic amyloidosis; N39.0 Urinary tract infection, site not specified; R44.3 Hallucinations, unspecified; E11.65 Type 2 diabetes mellitus with hyperglycemia; W01.0XXA Fall on same level from slipping, tripping and stumbling without subsequent striking against object, initial encounter; E78.5 Hyperlipidemia, unspecified; I10 Essential (primary) hypertension; R41.82 Altered mental status, unspecified; B96.20 Unspecified Escherichia coli [E. coli] as the cause of diseases classified elsewhere; R47.81 Slurred speech; D18.02 Hemangioma of intracranial structures; I68.0 Cerebral amyloid angiopathy; Z91.81 History of falling; Z79.84 Long term (current) use of oral hypoglycemic drugs; Z87.891 Personal history of nicotine dependence; Z86.79 Personal history of other diseases of the circulatory system; I69.398 Other sequelae of cerebral infarction
CPT/HCPCS: 36415; 64421; 70450; 70496; 70498; 70553; 71045; 72125; 73502; 74177; 80048; 80053; 81001; 82948; 83036; 83735; 84100; 84484; 85025; 85027; 85049; 85055; 85610; 85730; 86022; 86703; 86704; 86706; 86803; 87086; 87635; 93005; 96374; 97110; 97161; 97165; 97530; 97535; 99199; 99285; J0690; A9270; A9577; C1713; C1769; G0378; G0432; J0360; J0696; J1171; J1815; J2004; J2405; J2704; J3475; J7030; J7120; Q9967